=== PATIENT | male | born 1965 | race Caucasian/White ===

== ENCOUNTER 2023-04-28 13:46 | Outpatient (OUT) | payer BC, SELFPAY ==
--- NOTE | 2023-04-28 17:20 | MISC_ITS ---
CONSULTATION DATE: ??04/28/2023 TO:? Sean Garcia D.O. CHIEF COMPLAINT:? Includes upper back pain. HISTORY:? He reports the pain as being 5-7/10 pain, sharp in character, with a deep aching component, increased with activities such as lifting maneuvers, pushing/pulling maneuvers, prolonged standing.? He also reports sleep is uncomfortable.? He feels most comfortable in the semi-recumbent position and application of heat.? Denies any change in bowel and bladder habits or new sensorimotor changes in the lower extremities. EXAM:? Notable for patient having no clinical radiculopathy or myelopathy involving his lower extremities.? Examination of the thoracic area revealed the patient to have severe pain with thoracic facet loading maneuvers that appeared to be more severe on the right side, and appeared to be most severe at T4-5 and T3-4 levels.? This is markedly cephalad from his T7, T8, T9 and T10 rhizotomy using radiofrequency ablation.? He reports the pain seemed to migrate more cephalad approximately 1-2 weeks ago, which was after his last follow up visit on 04/03/2023.? IMPRESSION:? Our impression is patient appears to have chronic pain secondary to thoracic spondylosis, facet loading pain clinically.? It appears to be most severe at the T3-4, T4-5 level with associated myofascial spasm of the thoracic iliocostalis muscle.? RECOMMENDATIONS:? I have asked him to restart his baclofen 10 mg at h.s., obtain a thoracic spine film, PA and lateral views.? We will see the patient back in the office after he undergoes imaging study and has a trial with his anti- spasmodic. As part of providing excellent, safe, comprehensive care, the following was completed at our patient's visit: 1. A medication reconciliation and review to ensure accurate knowledge of current/active medications, including asking our patients to inform us about any usjy-xdz-lkuvoba medications or herbal remedies/nutritional supplements/alternative remedies. 2. A review to specifically ensure our patients have had annual screening for: elevated body mass index (BMI, see intake chart for exact total), tobacco use, screening for depression, and screening for unhealthy alcohol use.? When screening is concerning, patients are provided with education and the specific recommendation to discuss the concerning health issue and treatment options with their primary care provider. ADRI
== END 2023-04-28 13:47 ==
LOC: PM 13:46
PROVIDERS: PCP Internal Medicine; Visit Provider Anesthesiology Pain Medicine
DX: M47.814 Spondylosis without myelopathy or radiculopathy, thoracic region (principal); M62.830 Muscle spasm of back; G89.29 Other chronic pain
CPT/HCPCS: 72070; G0463

== ENCOUNTER 2023-04-28 15:01 | Outpatient (OUT) | payer BC, SELFPAY ==
--- NOTE | 2023-04-28 15:08 | XR_ITS ---
[place] [id number] Patient Name: SUZANNA SUAREZ MRN: [id number] date: 1965 Sex: M Assigned Patient Location: [facility] Current Patient Location: [facility] Accession/Order Number: [id number] Exam Date: 04/28/2023 15:10 Report Date: 04/29/2023 03:32 At the request of: JENNIFER HINKLE Procedure: XR thoracic spine 2V EXAM: XR thoracic spine 2V 04/28/2023 3:10 PM EDT OH001 CLINICAL STATEMENT: Thoracic spondylosis COMPARISON: 08/05/2022 TECHNIQUE: AP and lateral radiographs of the thoracic spine are submitted. FINDINGS: There is normal anatomic alignment. There is no acute fracture or dislocation. The intervertebral disc spaces and vertebral heights are preserved. The pedicles are intact. IMPRESSION: Unremarkable thoracic spine. Electronically authenticated by: KACY GLOVER Date: 04/29/2023 03:32
== END 2023-04-28 15:02 ==
LOC: RAD 15:03
PROVIDERS: PCP Internal Medicine; Visit Provider Anesthesiology Pain Medicine
DX: M47.814 Spondylosis without myelopathy or radiculopathy, thoracic region (principal)
CPT/HCPCS: 72070

== ENCOUNTER 2023-05-19 13:03 | Outpatient (OUT) | payer BC, SELFPAY ==
--- NOTE | 2023-05-20 13:45 | CONS_ITS ---
CONSULTATION DATE: ??05/20/2023 TO:? Sean Garcia D.O. CHIEF COMPLAINT:? Includes right upper back pain. HISTORY:? He reports the pain as being 6-7/10 pain in the above mentioned area, described as a deep aching pain with a sharp component, increased with activities such as lifting maneuvers, pushing/pulling maneuvers, also performing transitioning maneuvers.? He feels most comfortable in the semi-recumbent position.? He denies any change in bowel and bladder habits or new sensorimotor changes in his upper or lower extremities. EXAMINATION:? Notable for patient having persistent pain with thoracic facet loading maneuvers on the right side at T3-4, T-45 with associated myofascial spasm over the thoracic paravertebral muscles on the right side and the iliocostalis.? IMPRESSION:? Our impression is patient with chronic pain secondary to thoracic spondylosis with facet loading pain clinically. RECOMMENDATIONS:? I recommend we proceed with a diagnostic right sided T3-4, T4- 5 facet joint injection under fluoroscopic guidance.? I have asked him to continue using his baclofen as ordered, 10 mg pills, half a pill to one pill b.i.d. as tolerated.? I have gone over the details of the procedure with the patient.? All his questions answered.? He agrees to proceed with the outlined plan. As part of providing excellent, safe, comprehensive care, the following was completed at our patient's visit: 1. A medication reconciliation and review to ensure accurate knowledge of current/active medications, including asking our patients to inform us about any sbki-upb-khggesu medications or herbal remedies/nutritional supplements/alternative remedies. 2. A review to specifically ensure our patients have had annual screening for: elevated body mass index (BMI, see intake chart for exact total), tobacco use, screening for depression, and screening for unhealthy alcohol use.? When screening is concerning, patients are provided with education and the specific recommendation to discuss the concerning health issue and treatment options with their primary care provider. ADRI
== END 2023-05-19 13:04 | disposition home or self-care (01) ==
PROVIDERS: PCP Internal Medicine; Visit Provider Anesthesiology Pain Medicine
DX: M47.814 Spondylosis without myelopathy or radiculopathy, thoracic region (principal); G89.29 Other chronic pain
CPT/HCPCS: G0463

== ENCOUNTER 2023-06-02 06:49 | Day surgery (SDC) | payer BC, SELFPAY ==
[2023-06-02 07:09] VITALS: BP 134/90; PULSE 64; RESP 16; TEMP 36.5; O2SAT 99
[2023-06-02 08:22] VITALS: RESP 20
[2023-06-02 08:24] VITALS: BP 153/96; PULSE 53; O2SAT 96
[2023-06-02] MEDS: BUPIVACAINE HCL 0.25% PF 25 MG/10 ML VIAL 4 ML INJ (08:25)
[2023-06-02 08:27] VITALS: BP 150/98; PULSE 57; O2SAT 98
--- NOTE | 2023-06-02 08:54 | W.PM.PROCNOT ---
Date of procedure: 06/02/23 Pre-op diagnosis: thoracic spondylosis Post-op diagnosis: same Procedure: Right thoracic 3/4 and 4/5 facet injection Under fluoroscopic guidance Solution injected: 2millilitersMarcaine 0.25% Anesthesia :none Immediate complications none Time out process compliant After informed consent obtained from the patient placed in the Prone proposition. Area was prepped and draped in a sterile fashion using betadine. 25 gauge spinal needle inserted over each of the above mentioned target areas. [place] were directed towards the target under fluoroscopic guidance . after encountering each of the targets , no indication of intravascular intraneuronal or intrathecal needle tip placement. Then 0 .5 to 1 Milliliter was injected at each level. [place] removed postoperatively. patient transferred to recovery in stable condition to be discharged home after meeting criteria Anesthesia: Local Surgeon: Fransico Salvador
== END 2023-06-02 08:31 | disposition home or self-care (01) ==
LOC: SURGOUT 06:49
PROVIDERS: PCP Internal Medicine; Visit Provider Anesthesiology Pain Medicine
DX: M47.814 Spondylosis without myelopathy or radiculopathy, thoracic region (principal)
CPT/HCPCS: 64490; 64491

== ENCOUNTER 2023-06-18 07:57 | Outpatient (OUT) | payer BC, SELFPAY ==
--- NOTE | 2023-06-18 08:35 | PM.CN ---
Consult Note: HPI Data of Consult Patient: known to practice within the last 3 years Consult date: 06/18/23 Requesting Physician: SCAR OLIVO NP Primary Care Provider: Sean Garcia DO Consult Narrative Narrative: Patient is here for f/u of right dx MBB to T3/4, T4/5 done on 06/02/23. He had 80% relief of pain with increased fx for several hours after procedure. Pain is in thoracic area R>L worse at night. He would like to proceed with second MBB and ultimately RFA f same area. No new sensorimotor sx or bowel or bladder issues. No adverse medication SE. Medications assist patient with better ability to perform ADLs. cc:: CC: SCAR OLIVO NP Review of Systems ROS Status of ROS 10 or more systems reviewed and unremarkable except as noted in history and below Musculoskeletal Reports: back pain PFSH PFSH Surgical History Meds Home Medications and Allergies Home Medications Medication Instructions Recorded Confirmed Type alprazolam 0.5 mg tablet (Xanax) 0.5 mg PO DAILY 04/28/23 06/02/23 History aspirin 81 mg capsule 81 mg PO DAILY 04/28/23 06/02/23 History baclofen 10 mg tablet 10 mg PO BID 04/28/23 06/02/23 History calcium carbonate 600 mg calcium 600 mg PO BID 04/28/23 06/02/23 History (1,500 mg) tablet (Calcium) cyanocobalamin (vitamin B-12) .ROUTE DAILY 04/28/23 History glucosamine [id number] 1 tab PO DAILY 04/28/23 06/02/23 History roxanna 1,500 mg-400 unit-100 mg tablet (Osteo Bi-Flex (5-Loxin)) multivitamin 1 tab PO DAILY 04/28/23 06/02/23 History omega-3 fatty acids-fish oil 360 1 cap PO DAILY 04/28/23 06/02/23 History mg-1,200 mg capsule (Fish Oil) testosterone cypionate .ROUTE .every 2 weeks 04/28/23 History vitamins-lipotropics tablet 1 tab PO DAILY 04/28/23 06/02/23 History Allergies Allergy/AdvReac Type Severity Reaction Status Date / Time No Known Drug Allergies Allergy Verified 06/06/23 14:10 Exam Constitutional Documenting provider has reviewed patient's vital signs: yes Common normals: no apparent distress, average body habitus, oriented x3, no limitations, healthy appearing, alert and well nourished General appearance: cooperative, comfortable and well developed Orientation/consciousness: Yes awake, Yes oriented to person, Yes oriented to place and Yes oriented to time HENMT Common normals: normocephalic and moist oral mucous membranes Respiratory Common normals: normal respiratory effort, no retractions and no use of accessory muscles Effort & inspection: able to speak in complete sentences and symmetric chest movement Back & Pelvis Thoracic spine/upper back: normal to inspection, ROM limited, pain with ROM, paraspinal muscle tenderness and paraspinal muscle spasm Other: facet loading pain bilat muscle strength 5/5 bilat with intact sensation Assessment and Plan Assessment and Plan (1) Thoracic spondylosis: (2) Muscle spasm: Plan schedule second dx MBB thoracic T3/4, T 4/5 under fluoroscopy with ultimate progression to thermal RFA
== END 2023-06-18 07:58 | disposition home or self-care (01) ==
LOC: PM 07:57
PROVIDERS: PCP Internal Medicine; Visit Provider Nurse Practitioner
DX: M47.814 Spondylosis without myelopathy or radiculopathy, thoracic region (principal); M62.838 Other muscle spasm
CPT/HCPCS: G0463

== ENCOUNTER 2023-07-07 07:50 | Day surgery (SDC) | payer BC, SELFPAY ==
[2023-07-07 07:55] VITALS: BP 125/91; PULSE 65; RESP 18; TEMP 36.6; O2SAT 95
[2023-07-07 08:57] VITALS: BP 139/93; BP 141/94; PULSE 65; PULSE 66; RESP 20; O2SAT 98; O2SAT 99
[2023-07-07] MEDS: BUPIVACAINE HCL 0.25% PF 25 MG/10 ML VIAL 4 ML INJ (08:58)
--- NOTE | 2023-07-07 10:21 | W.PM.PROCNOT ---
Date of procedure: 07/07/23 Pre-op diagnosis: thoracic spondylosis Post-op diagnosis: same as pre-op Procedure: Right thoracic 3/4, 4/5 facet injection Under fluoroscopic guidance Solution injected: 2millilitersMarcaine 0.25% Anesthesia :none Immediate complications none Time out process compliant After informed consent obtained from the patient placed in the Prone proposition . area was prepped and draped in a sterile fashion using betadine. 25 gauge spinal needle inserted over each of the above mentioned target areas . [place] were directed towards the target under fluoroscopic guidance . after encountering each of the targets , no indication of intravascular intraneuronal or intrathecal needle tip placement. Then 0 .5 to 1 Milliliter was injected at each level. [place] removed postoperatively. patient transferred to recovery in stable condition to be discharged home after meeting criteria Anesthesia: Local Surgeon: Fransico Salvador Condition: stable
== END 2023-07-07 09:05 | disposition home or self-care (01) ==
LOC: SURGOUT 07-08 10:18
PROVIDERS: PCP Internal Medicine; Visit Provider Anesthesiology Pain Medicine
DX: M47.814 Spondylosis without myelopathy or radiculopathy, thoracic region (principal)
CPT/HCPCS: 64490; 64491

== ENCOUNTER 2023-07-15 07:44 | Outpatient (OUT) | payer BC, SELFPAY ==
--- NOTE | 2023-07-15 08:03 | PM.CN ---
Consult Note: HPI Data of Consult Patient: known to practice within the last 3 years Requesting Physician: Radha Cordova NP Primary Care Provider: Sean Garcia DO Consult Narrative Reason for consult: F/u from 07/07 Right thoracic 3/4, 4/5 facet block #2 Narrative: Fran Lundy a pleasant 57 year old male presents for evaluation of upper back pain and procedure follow up after right thoracic 3/4 4/5 Facet block #2, patient had 90% pain relief immediately after and for hours following the procedure with improvement in functional ability. Patient would like to proceed with thermal RFA of right thoracic 3/4 4/5 spine. cc:: CC: Radha Cordova NP Review of Systems ROS Status of ROS 10 or more systems reviewed and unremarkable except as noted in history and below Musculoskeletal Reports: back pain, limited range of motion and muscle cramps PFSH PFSH Surgical History Meds Home Medications and Allergies Home Medications Medication Instructions Recorded Confirmed Type alprazolam 0.5 mg tablet (Xanax) 0.5 mg PO DAILY 04/28/23 07/07/23 History aspirin 81 mg capsule 81 mg PO DAILY 04/28/23 07/07/23 History baclofen 10 mg tablet 10 mg PO BID 04/28/23 07/07/23 History calcium carbonate 600 mg calcium 600 mg PO BID 04/28/23 07/07/23 History (1,500 mg) tablet (Calcium) glucosamine [id number]-[id number] 1 tab PO DAILY 04/28/23 07/07/23 History roxanna 1,500 mg-400 unit-100 mg tablet (Osteo Bi-Flex (5-Loxin)) multivitamin 1 tab PO DAILY 04/28/23 07/07/23 History omega-3 fatty acids-fish oil 360 1 cap PO DAILY 04/28/23 07/07/23 History mg-1,200 mg capsule (Fish Oil) testosterone cypionate .ROUTE .every 2 weeks 04/28/23 History vitamins-lipotropics tablet 1 tab PO DAILY 04/28/23 07/07/23 History Allergies Allergy/AdvReac Type Severity Reaction Status Date / Time No Known Drug Allergies Allergy Verified 07/07/23 07:52 Exam Narrative Exam Narrative: Chronic, >3 months predominately axial upper back pain not relieved by NSAIDs, PT, or other conservative measures. WINNIE 32% with severe pain, pain that limits lifting, pain that interferes with sleep and less than 4hrs at a time, pain restricting social life and travel Constitutional Documenting provider has reviewed patient's vital signs: yes Common normals: no apparent distress, average body habitus, oriented x3, healthy appearing, alert and well nourished Exam limitations: physical limitations General appearance: cooperative HENHI Common normals: normocephalic, hearing grossly normal bilaterally and moist oral mucous membranes Head and scalp: normocephalic Eye Common normals: PERRL Pupil: PERRL Neck & C-Spine Common normals: full ROM General: normal visual inspection Cervical spine: cervical ROM normal and normal cervical lordosis Chest Common normals: inspection of chest normal Respiratory Common normals: normal respiratory effort, no retractions and no use of accessory muscles Back & Pelvis Common normals: thoracic and lumbar spine normal to inspection Thoracic spine/upper back: ROM limited, pain with ROM and paraspinal muscle tenderness Lumbar spine/lower back: normal to inspection and lumbar ROM normal Sacroiliac joints: SI joints normal Extremity Common normals: normal to inspection and full ROM Neuro Common normals: oriented x3, CN's II-XII intact bilaterally, moves all extremities, no focal motor deficits, no sensory deficits noted, deep tendon reflexes 2+ bilaterally and gait normal Sensorium/orientation: alert Motor exam: strength 5/5 throughout and no movement abnormalities noted Psych Common normals: mental status grossly normal, thought process normal, cooperative, affect normal, speech normal and activity/motor behavior normal Speech: normal speech Thought process: normal thought process Results Additional Findings Additional findings: I have checked an OARRS report on this patient today and there are no aberrancies noted in the prescribing history.?? A drug screen was completed and reviewed within the last year, and if there has not been a drug screen completed we ordered one today to monitor higher risk, state monitored pain medication use. As part of providing excellent, safe, comprehensive care, the following was completed at our patient's visit: 1. A medication reconciliation and review to ensure accurate knowledge of current/active medications, including asking our patients to inform us about any vcxn-jbb-dmbyiiq medications or herbal remedies/nutritional supplements/alternative remedies. 2. A review to specifically ensure our patients have had annual screening for: elevated body mass index (BMI), tobacco use, screening for depression, and screening for unhealthy alcohol use. When screening is concerning, patients are provided with education and the specific recommendation to discuss the concerning health issue and treatment options with their primary care provider. Assessment and Plan Assessment and Plan (1) Thoracic spondylosis: Assessment and Plan: (2) Muscle spasm: (3) Anxiety: Assessment and Plan: currently on xanx .5mg HS PRN from PCP, with history on anxiety the patient reports he may take his prescription the morning of his RFA Plan Discussed RFA procedure as well as risks vs benefits. Proceed with Right thoracic 3/4, 4/5 thermal radiofrequency ablation without sedation (patient will use at previously prescribed xanax if anxious morning of procedure continue baclofen 10mg HS PRN muscle spasms f/u 1 month after
== END 2023-07-15 07:45 | disposition home or self-care (01) ==
LOC: PM 07:48
PROVIDERS: PCP Internal Medicine; Visit Provider Nurse Practitioner
DX: M47.814 Spondylosis without myelopathy or radiculopathy, thoracic region (principal); M62.838 Other muscle spasm
CPT/HCPCS: G0463

== ENCOUNTER 2023-08-11 12:31 | Day surgery (SDC) | payer BC, SELFPAY ==
[2023-08-11 13:15] VITALS: BP 155/98; PULSE 74; RESP 16; TEMP 36.9; O2SAT 99
[2023-08-11 14:00] VITALS: BP 151/84; PULSE 87; RESP 20; O2SAT 100
[2023-08-11 14:02] VITALS: RESP 20
[2023-08-11] MEDS: LIDOCAINE HCL 2% 400 MG/20 ML MDV 10 ML INJ (14:03)
[2023-08-11] MEDS: BUPIVACAINE HCL 0.25% PF 25 MG/10 ML VIAL 4 ML INJ (14:03)
[2023-08-11] MEDS: METHYLPREDNISOLONE ACETATE 40 MG/ML VIAL INJ (14:04)
[2023-08-11 14:10] VITALS: BP 159/93; PULSE 87; O2SAT 99
--- NOTE | 2023-08-11 14:15 | P.ON_ITS ---
Date of procedure: 08/11/23 Pre-op diagnosis: Thoracic Spondylosis Post-op diagnosis: same as pre-op Procedure: Right Thoracic 3/4, 4/5 Radiofrequency ablation Under fluoroscopic guidance Rhizotomy was created using radio frequency ablation at 80?C for 90 seconds 1 to 2 lesions created at each site. Post lesioning injection of 2 mL each of 0.25% Marcaine and 2% lidocaine with Depo-Medrol 40mg. 0.5 to 1 mL injected at each site Anesthesia local 2% lidocaine for Timeout process compliant After informed consent obtained.Patient brought to the procedure room placed in the prone position skin overlying the area was prepped and draped in a sterile fashion using betadine. 25 gauge needle was used to create a skin wheal over each of the targeted areas utilizing 2% lidocaine. A rhizotomy needle with a 10 mm active tip was inserted over each of the anesthetized areas and directed tow ards each of the medial branches accomplished under fluoroscopic guidance. after encountering the same we had positive sensory stimulation, negative motor stimulation was noted. lesions were then created. Post lesioning, steroid solution was injected needles removed. Patient was transferred to recovery room in stable condition to be discharged home after meeting criteria. Anesthesia: Local Surgeon: Fransico Salvador Condition: stable
== END 2023-08-11 14:20 | disposition home or self-care (01) ==
LOC: SURGOUT 12:33
PROVIDERS: PCP Internal Medicine; Visit Provider Anesthesiology Pain Medicine
DX: M47.814 Spondylosis without myelopathy or radiculopathy, thoracic region (principal)
CPT/HCPCS: 64633; 64634; J1030

== ENCOUNTER 2023-09-03 07:31 | Outpatient (OUT) | payer BC, SELFPAY ==
--- NOTE | 2023-09-03 08:00 | P.CN_ITS ---
Consult Note: HPI Data of Consult Patient: known to practice within the last 3 years Requesting Physician: Radha Cordova NP Primary Care Provider: Sean Garcia DO Consult Narrative Reason for consult: F/u Narrative: Fran Sosa a pleasant 58 year old male presents for evaluation of chronic back pain. Recently had a Right Thoracic 3/4, 4/5 Radiofrequency ablation with 95% pain relief and functional improvement in pain at that site. Patient now has pain in a new area of his back, low thoracic/high lumbar, rating it a 6/10 constant ache, pain is improved with baclofen and aleve. cc:: CC: Radha Cordova NP Review of Systems ROS Status of ROS 10 or more systems reviewed and unremarkable except as noted in history and below Musculoskeletal Reports: back pain PFSH PFSH Surgical History S/P total hip arthroplasty ?Z96.649 - Presence of unspecified artificial hip joint (ICD-10) Meds Home Medications and Allergies Home Medications Medication Instructions Recorded Confirmed Type alprazolam 0.5 mg tablet (Xanax) 0.5 mg PO DAILY 04/28/23 08/11/23 History aspirin 81 mg capsule 81 mg PO DAILY 04/28/23 08/11/23 History baclofen 10 mg tablet 10 mg PO BID 04/28/23 08/11/23 History calcium carbonate 600 mg calcium 600 mg PO BID 04/28/23 08/11/23 History (1,500 mg) tablet (Calcium) glucosamine [id number]-Ruhwljodr 1 tab PO DAILY 04/28/23 08/11/23 History roxanna 1,500 mg-400 unit-100 mg tablet (Osteo Bi-Flex (5-Loxin)) multivitamin 1 tab PO DAILY 04/28/23 08/11/23 History omega-3 fatty acids-fish oil 360 1 cap PO DAILY 04/28/23 08/11/23 History mg-1,200 mg capsule (Fish Oil) testosterone cypionate .ROUTE .every 2 weeks 04/28/23 History vitamins-lipotropics tablet 1 tab PO DAILY 04/28/23 08/11/23 History Allergies Allergy/AdvReac Type Severity Reaction Status Date / Time No Known Drug Allergies Allergy Verified 08/11/23 13:13 Exam Constitutional Documenting provider has reviewed patient's vital signs: yes Common normals: no apparent distress, oriented x3, healthy appearing, alert and well nourished General appearance: cooperative HENMT Common normals: normocephalic, hearing grossly normal bilaterally and moist oral mucous membranes Head and scalp: normocephalic Eye Common normals: PERRL Pupil: PERRL Neck & C-Spine Common normals: full ROM General: normal visual inspection Chest Common normals: inspection of chest normal Respiratory Common normals: normal respiratory effort, no retractions and no use of accessory muscles Back & Pelvis Thoracic spine/upper back: thoracic ROM normal Lumbar spine/lower back: lumbar ROM normal, pain with ROM and paraspinal muscle tenderness Other: positive facet loading right side no radiculopathy Extremity Common normals: normal to inspection and full ROM Neuro Common normals: oriented x3, CN's II-XII intact bilaterally, moves all ex tremities, no focal motor deficits, no sensory deficits noted, deep tendon reflexes 2+ bilaterally and gait normal Sensorium/orientation: alert Motor exam: strength 5/5 throughout and no movement abnormalities noted Psych Common normals: mental status grossly normal, thought process normal, cooperative, affect normal, speech normal and activity/motor behavior normal Speech: normal speech Thought process: normal thought process Results Additional Findings Additional findings: I have checked an OARRS report on this patient today and there are no aberrancies noted in the prescribing history.?? A drug screen was completed and reviewed within the last year, and if there has not been a drug screen completed we ordered one today to monitor higher risk, state monitored pain medication use. As part of providing excellent, safe, comprehensive care, the following was completed at our patient's visit: 1. A medication reconciliation and review to ensure accurate knowledge of current/active medications, including asking our patients to inform us about any wlnk-jrq-xqjvmcs medications or herbal remedies/nutritional supplements/alternative remedies. 2. A review to specifically ensure our patients have had annual screening for: elevated body mass index (BMI), tobacco use, screening for depression, and screening for unhealthy alcohol use. When screening is concerning, patients are provided with education and the specific recommendation to discuss the concerning health issue and treatment options with their primary care provider. Assessment and Plan Assessment and Plan (1) Thoracic spondylosis: (2) Muscle spasm: (3) Lumbar back pain: Plan thoracic RFA providing 95% ongoing pain relief and functional improvement Update lumbar spine xray with bending continue HEP, planning to start working out and stretching more consistently continue baclofen 10mg prn muscle spasms f/u 2 months
== END 2023-09-03 07:32 | disposition home or self-care (01) ==
LOC: PM 07:37
PROVIDERS: PCP Internal Medicine; Visit Provider Nurse Practitioner
DX: M54.50 Low back pain, unspecified (principal); M47.814 Spondylosis without myelopathy or radiculopathy, thoracic region; M62.838 Other muscle spasm
CPT/HCPCS: 72114; G0463

== ENCOUNTER 2023-09-03 08:27 | Outpatient (OUT) | payer BC, SELFPAY ==
--- NOTE | 2023-09-03 | XR_ITS ---
The [address] [address] Patient Name: SUZANNA SUAREZ MRN: [id number] date: 1965 Sex: M Assigned Patient Location: [facility] Current Patient Location: [facility] Accession/Order Number: [id number] Exam Date: 09/03/2023 08:45 Report Date: 09/03/2023 09:53 At the request of: NON-STAFF PHYSICIAN Procedure: XR lumbar spine 6V w bending EXAMINATION: XR lumbar spine 6V w bending HISTORY: low back pain COMPARISON: XR L-spine 06/02/2017 FINDINGS: BONES: Mild degenerative facet arthropathy L4-5, L5-S1. Normal height and alignment of vertebral bodies. DISC SPACES: No significant disc height narrowing, subluxation, or endplate abnormality. PARASPINOUS: Negative. No paraspinous abnormality is seen. OTHER: Negative. XR/XR lumbar spine 6V w bending IMPRESSION: 1. No appreciable acute abnormality or significant degenerative disc disease. 2. Mild degenerative facet arthropathy of lower lumbar spine. Electronically authenticated by: NINA SOLIS Date: 09/03/2023 09:53
== END 2023-09-03 08:28 | disposition home or self-care (01) ==
LOC: RAD 08:30
PROVIDERS: PCP Internal Medicine
DX: M54.50 Low back pain, unspecified (principal)
CPT/HCPCS: 72114

== ENCOUNTER 2023-11-12 07:45 | Outpatient (OUT) | payer BC, SELFPAY ==
--- NOTE | 2023-11-12 08:18 | P.CN_ITS ---
Consult Note: HPI Data of Consult Patient: known to practice within the last 3 years Requesting Physician: Radha Cordova NP Primary Care Provider: Sean Garcia DO Consult Narrative Reason for consult: f/u Narrative: Fran obregon pleasant 58 year old male presents for evaluation and management of back pain. Middle back today 3/10 ache. Patient has completed lumbar spine xrays since last visit. cc:: CC: Radha Cordova NP Review of Systems 2 ROS Status of ROS 10 or more systems reviewed and unremark able except as noted in history and below Musculoskeletal Reports: back pain PFSH PFSH Surgical History S/P total hip arthroplasty ?Z96.649 - Presence of unspecified artificial hip joint (ICD-10) Meds Home Medications and Allergies Home Medications Medication Instructions Recorded Confirmed Type alprazolam 0.5 mg tablet (Xanax) 0.5 mg PO DAILY 04/28/23 08/11/23 History aspirin 81 mg capsule 81 mg PO DAILY 04/28/23 08/11/23 History baclofen 10 mg tablet 10 mg PO BID 04/28/23 08/11/23 History calcium carbonate 600 mg calcium 600 mg PO BID 04/28/23 08/11/23 History (1,500 mg) tablet (Calcium) glucosamine [id number] 1 tab PO DAILY 04/28/23 08/11/23 History roxanna 1,500 mg-400 unit-100 mg tablet (Osteo Bi-Flex (5-Loxin)) multivitamin 1 tab PO DAILY 04/28/23 08/11/23 History omega-3 fatty acids-fish oil 360 1 cap PO DAILY 04/28/23 08/11/23 History mg-1,200 mg capsule (Fish Oil) testosterone cypionate .ROUTE .every 2 weeks 04/28/23 History vitamins-lipotropics tablet 1 tab PO DAILY 04/28/23 08/11/23 History Allergies Allergy/AdvReac Type Severity Reaction Status Date / Time No Known Drug Allergies Allergy Verified 08/11/23 13:13 Exam Constitutional Documenting provider has reviewed patient's vital signs: yes Common normals: no apparent distress, oriented x3, healthy appearing, alert and well nourished General appearance: cooperative HENMT Common normals: normocephalic, hearing grossly normal bilaterally and moist oral mucous membranes Head and scalp: normocephalic Eye Common normals: PERRL Pupil: PERRL Neck & C-Spine Common normals: full ROM General: normal visual inspection Chest Common normals: inspection of chest normal Respiratory Common normals: normal respiratory effort, no retractions and no use of accessory muscles Back & Pelvis Thoracic spine/upper back: thoracic ROM normal Lumbar spine/lower back: lumbar ROM normal and pain with ROM Other: positive facet loading right side no radiculopathy Extremity Common normals: normal to inspection and full ROM Neuro Common normals: oriented x3, CN's II-XII intact bilaterally, moves all extremities, no focal motor deficits, no sensory deficits noted and deep tendon reflexes 2+ bilaterally Sensorium/orientation: alert Motor exam: strength 5/5 throughout and no movement abnormalities noted Psych Common normals: mental status grossly normal, thought process normal, cooperative, affect normal, speech normal and activity/motor behavior normal Speech: normal speech Thought process: normal thought process Results Additional Findings Additional findings: I have checked an [facility] report on this patient today and there are no aberrancies noted in the prescribing history.?? A drug screen was completed and reviewed within the last year, and if there has not been a drug screen completed we ordered one today to monitor higher risk, state monitored pain medication use. As part of providing excellent, safe, comprehensive care, the following was completed at our patient's visit: 1. A medication reconciliation and review to ensure accurate knowledge of current/active medications, including asking our patients to inform us about any [id number] medications or herbal remedies/nutritional supplements/alternative remedies. 2. A review to specifically ensure our patients have had annual screening for: elevated body mass index (BMI), tobacco use, screening for depression, and screening for unhealthy alcohol use. When screening is concerning, patients are provided with education and the specific recommendation to discuss the concerning health issue and treatment options with their primary care provider. Assessment and Plan Assessment and Plan (1) Thoracic spondylosis: (2) Lumbar spondylosis: (3) Muscle spasm: Plan lumbar spine xrays reviewed, consider bilateral L4-5 L5-S1 facet medial branch blocks x2 working towards thermal RFA in the future continue PRN baclofen 5-10mg HS f/u as needed
== END 2023-11-12 07:46 | disposition home or self-care (01) ==
LOC: PM 07:45
PROVIDERS: PCP Internal Medicine; Visit Provider Nurse Practitioner
DX: M47.814 Spondylosis without myelopathy or radiculopathy, thoracic region (principal); M47.816 Spondylosis without myelopathy or radiculopathy, lumbar region; M62.838 Other muscle spasm
CPT/HCPCS: G0463

== ENCOUNTER 2024-03-02 07:23 | Outpatient (OUT) | payer BC, SELFPAY ==
--- OUTSIDE RECORDS SUMMARY | 2024-03-02 07:26 | XMS_ITS | CCD ---
Author Organization [facility] Care Team Providers Care Baby Nurse Name Role Phone AV BUSTAMANTE Attending Unavailable SEAN GARCIA Primary Care Unavailable IGNACIA SCOTT Primary Care Physician Sean Garcia SHAD ., DR AMPARO Valentine Admitting Unavailable KULKARNI ., DR AMPARO Valentine Attending Unavailable JOSE, DR BHAKTA Primary Care Unavailable KULKARNI ., DR AMPARO Valentine Consulting Unavailable MARTELL .LÓPEZ Consulting Unavailable KULKARNI ., DR AMPARO Valentine Admitting Unavailable KULKARNI ., DR AMPARO Valentine Attending Unavailable JOSE, DR BHAKTA Primary Care Unavailable KULKARNI ., DR AMPARO Valentine Consulting Unavailable KULKARNI ., DR AMPARO Valentine Admitting Unavailable KULKARNI ., DR AMPARO Valentine Attending Unavailable JOSE, DR BHAKTA Primary Care Unavailable ZIPACO, DR NINA Barreto Consulting Unavailable KULKARNI ., DR AMPARO Valentine Consulting Unavailable LAKSHMIPATHY ., NARJESSE Admitting [place] vailable LAKSHMIPATHY ., JENNIFER Attending [place] vailable JOSE, DR BHAKTA Primary Care Unavailable LAKSHMIPATHY ., JENNIFER Consulting [place] vailable LAKSHMIPATHY ., JENNIFER Admitting [place] vailable LAKSHMIPATHY ., CHLOEATH Attending [place] vailable DR SEAN GARCIA Primary Care Unavailable LAKSHMIPATHY ., JENNIFER Consulting [place] vailable LAKSHMIPATHY ., NARENDRANATH Admitting [place] vailable HALKER ., SCAR Attending Unavailable JOSE, DR BHAKTA Primary Care Unavailable HALKER ., SCAR Consulting Unavailable KULKARNI ., DR AMPARO Valentine Admitting Unavailable KULKARNI ., DR AMPARO Valentine Attending Unavailable JOSE, DR BHAKTA Primary Care Unavailable KULKARNI ., DR AMPARO Valentine Consulting Unavailable KULKARNI ., DR AMPARO Valentine Admitting Unavailable KULKARNI ., DR AMPARO Valentine Attending Unavailable JOSE, DR BHAKTA Primary Care Unavailable KULKARNI ., DR AMPARO Valentine Consulting Unavailable JAYSHREE .LÓPEZ Consulting Unavailable SHAD ., DR AMPARO Valentine Admitting Unavailable SHAD .DR AMPARO Attending Unavailable DR SEAN GARCIA Primary Care Unavailable SHAD ., DR AMPARO Valentine Consulting Unavailable SEAN GARCIA Referring Unavailable Allergies Allergy Classification Reported Allergen(s) Allergy Type Date of Onset Reaction(s) Facility (1 source) patient allergy list reviewed by nurse or physicia Propensity to adverse reactions Comment:Done [employer] Other Medications Current Medications Medication Drug Class(es) Dates Sig (Normalized) Sig (Original) ALPRAZolam 0.5 mg oral tablet (16 sources) Benzodiazepine Start: 01-26-2024 take 0.5 mg by mouth three times daily Alprazolam Active 0.5 MG PO Three times daily January 26, 2024 6:00pm Start: 07-18-2023 take 1 tablet by jericho th every eight hours as needed for anxiety ALPRAZolam 0.5 MG TAKE ONE TABLET BY MOUTH EVERY 8 HOURS NEEDED FOR ANXIETY for 30 Jun, Active Start: 01-08-2023 take 1 tablet by jericho th every eight hours as needed for anxiety ALPRAZolam 0.5 MG TAKE ONE TABLET BY MOUTH EVERY 8 HOURS NEEDED FOR ANXIETY for 30 Dec, Active Start: 09-11-2017 End: 01-26-2024 take 0.5 mg by mouth once daily at bedtime Alprazolam Discontinued 0.5 MG PO Daily at bedtime September 11, 2017 12:00am January 26, 2024 6:03pm Aspirin (2 sources) Platelet Aggregation Inhibitor, Nonsteroidal Anti-inflammatory Drug Start: 01-14-2022 aspirin Refills(s ) 0 Start Date: 01/14/22 Status: Ordered Start: 09-12-2017 End: 10-12-2017 take 1 tablet by mouth once daily Aspirin (Aspir-) 81 mg tablet,delayed release (DR/EC) Discontinued 81 MG PO Daily September 12, 2017 12:00am October 12, 2017 1:03am baclofen 10 mg oral tablet (8 sources) gamma-Aminobutyric Acid-ergic Agonist Start: 02-25-2024 take 10 mg by mouth three times daily Baclofen Active 10 MG PO Three times daily February 25, 2024 12:00am take 1 tablet by mouth every eig ht hours Baclofen 10 MG 1 tablet as needed Orally Three times a day for 30 days Active Chondroitin Sulfates / Glucosamine (2 sources) Start: 01-14-2022 Osteo Bi-Flex Refill(s) 0 Start Date: 01/14/22 Status: Ordered Start: 09-11-2017 End: 02-25-2024 take 200-250 mg by mouth once daily Glucosamine-Chondroitin (Osteo Bi-Flex) 250-200 mg Tablet Discontinued 200 - 250 MG PO Daily September 11, 2017 12:00am February 25, 2024 10:26am cyclobenzaprine hydrochloride 10 mg oral tablet (11 sources) Muscle Relaxant take 1 tablet by mouth every eight hours Cyclobenzaprine HCl 10 MG 1 tablet Orally Three times a day Active Fish Oils (1 source) Start: 01-14-20 Fish Oil Oral, Refill(s) 0 Start Date: 01/14/22 Status: Ordered hydrocortisone 25 mg/ml topical cream (15 sources) Corticosteroid Start: 02-25-20 Hydrocortisone Active 1 APPLIC TOPICAL Daily February 25, 2024 12:00am Hydrocortisone 2 .5 % 1 application Externally Once a day Active Hydrocortisone 2 .5 % 1 application Externally Once a day Active Multi Vitamin+ (1 source) Start: 01-14-2022 Multi Vitamin+ Refill(s) 0 Start Date: 01/14/22 Status: Ordered sildenafil 100 mg oral tablet (15 sources) Phosphodiesterase 5 Inhibitor Start: 02-25-2024 Sildenafil Active 100 MG PO February 25, 2024 12:00am take 1 tablet by jericho th once daily as needed Sildenafil Citrate 100 MG TAKE 1 TABLET BY MOUTH DAILY NEEDED FOR ERECTILE DYSFUNCTION for 6 Active Testosterone (1 source) Androgen Start: 01-14-2022 testosterone 1 0 mg/0.5 g transdermal gel Topical, qAM, Refills(s) 0 Start Date: 01/14/22 Status: Ordered triamcinolone acetonide 0.001 mg/mg topical ointment (14 sources) Corticosteroid Triamcinolone Ac etonide 0.1 % 1 application Externally Twice a day Active vitamin B12 (1 source) Vitamin B12 Start: 01-14-2022 Vitamin B12 Re fills(s) 0 Start Date: 01/14/22 Status: Ordered Completed/Discontinued Medications Medication Drug Class(es) Dates Sig (Normalized) Sig (Original) azithromycin 250 mg oral tablet (14 sources) Macrolide Antimicrobial Start: 12-15-2022 take 1 tablet by mouth twice daily as needed Azithromycin 250 MG 1 Tablet Orally Twice daily for 6 days Nov, Not-Taking/PRN enalapril maleate 5 mg oral tablet (14 sources) Angiotensin Converting Enzyme Inhibitor take 1 tablet by mouth once daily as needed Enalapril 5 mg one tab orally daily Not-Taking/PRN hydrocortisone 10 mg/ml / neomycin 3.5 mg/ml / polymyxin b [id number] unt/ml otic suspension (14 sources) Aminoglycoside Antibacterial, Polymyxin-class Antibacterial, Corticosteroid Neomycin-Polymyxi n-HC [id number] 4 drops Otic Three times a day for 7 days Not-Taking/PRN lisinopril 5 mg oral tablet (1 source) Angiotensin Converting Enzyme Inhibitor Start: 09-12-2017 End: 10-12-2017 take 5 mg by mouth once daily Lisinopril Discontinued 5 MG PO Daily September 12, 2017 12:00am October 12, 2017 1:03am Vuqmileacsmx-Ctql-Hg lic Acid (Centrum) 18-400 mg-mcg Tablet (1 source) Start: 09-11-2017 End: 02-25-2024 take 1 tablet by mouth once daily Multivitamin-Iron -Folic Acid (Centrum) 18-400 mg-mcg Tablet Discontinued 1 TAB PO Daily September 11, 2017 12:00am February 25, 2024 10:26am [place] 3-Sps-Upo-Fish Oil (Fish Oil) 900-1,400 mg Capsule,Delayed Release(Dr/Ec) (1 source) Start: 09-11-2017 End: 02-25-2024 [place] 1-Udh-Ekh-Fish Oil (Fish Oil) 900-1,400 mg Capsule,Delayed Release(Dr/Ec) Discontinued 900 MG PO Daily September 11, 2017 12:00am February 25, 2024 10:26am oxyCODONE hydrochloride 5 mg oral tablet (14 sources) Opioid Agonist take 1 tablet by mouth every six hours oxyCODONE HCl 5 MG 1 tablet Orally every 6 hrs Not-Taking/PRN predniSONE 20 mg oral tablet (14 sources) Start: 12-15-2022 take 1 tablet by mouth every twenty-four hours predniSONE 20 MG 1 tablet Orally Once a day for 30 day(s) Nov, Not-Taking/PRN simvastatin 40 mg oral tablet (1 source) HMG-CoA Reductase Inhibitor Start: 09-12-2017 End: 10-12-2017 take 40 mg by mouth once daily Simvastatin Discontinued 40 MG PO Daily September 12, 2017 12:00am October 12, 2017 1:03am Vitamins-Lipotropics (Lipo-Flavonoid Plus) 200-100 mg Tablet (1 source) Start: 09-11-2017 End: 02-25-2024 take 100-200 mg by mouth twice daily Vitamins-Lipotrop ics (Lipo-Flavonoid Plus) 200-100 mg Tablet Discontinued 100 - 200 MG PO Twice daily September 11, 2017 12:00am February 25, 2024 10:26am Problems Active Problems Problem Classification Problem Date Documented Date Episodic/Chronic Allergic reactions (4 sources) Allergic contact dermatitis; Translations: [Allergic contact dermatitis due to other agents] 02-25-2024 Episodic Anxiety disorders (19 sources) Generalized anxiety disorder; Translations: [Generalized anxiety disorder] Chronic Cardiac dysrhythmias (1 source) Cardiac arrhythmia; Translations: [Cardiac arrhythmia, unspecified] 09-11-2017 Chronic Diabetes mellitus without complication (1 source) Impaired fasting glycemia; Translations: [Impaired fasting glucose] Episodic Diseases of white blood cells (1 source) Leukopenia; Translations: [Decreased white blood cell count, unspecified] Onset: 05-27-2016 Chronic Disorders of lipid metabolism (2 sources) Familial hypercholesterolemia; Translations: [Familial hypercholesterolemia] 02-25-2024 Chronic Esophageal disorders (1 source) Esophageal disorders; Translations: [Gastro-esophageal reflux disease with esophagitis, without bleeding] Onset: 03-23-2018 Headache; including migraine (6 sources) Migraine with aura; Translations: [Migraine with aura, not intractable, without status migrainosus] Chronic Hemorrhoids (2 sources) Hemorrhoids; Translations: [Unspecified hemorrhoids] Onset: 02-12-2022 Episodic Hyperplasia of prostate (1 source) Benign prostatic hypertrophy without outflow obstruction; Translations: [Hypertrophy (benign) of prostate without urinary obstruction and other lower urinary tract symptoms [LUTS]] Onset: 02-22-2016 Chronic Immunizations and screening for infectious disease (2 sources) Vaccination given; Translations: [Encounter for immunization] Onset: 11-13-2017 Episodic Miscellaneous mental health disorders (1 source) Psychosexual dysfunction associated with inhibited sexual excitement; Translations: [Psychosexual dysfunction with inhibited sexual excitement] Onset: 03-23-2018 Chronic Osteoarthritis (1 source) Localized, primary osteoarthritis of the pelvic region and thigh; Translations: [Bilateral primary osteoarthritis of hip] Chronic Other and unspecified benign neoplasm (2 sources) Polyp of colon; Translations: [Polyp of colon] Onset: 02-12-2022 Episodic Other circulatory disease (2 sources) History of cerebrovascular accident without residual deficits; Translations: [Personal history of transient ischemic attack [TIA], and cerebral infarction without residual deficits] Onset: 09-18-2017 Episodic Other ear and sense organ disorders (15 sources) Impacted cerumen; Translations: [Impacted cerumen, right ear] Onset: 05-28-2018 Episodic Other ear and sense organ disorders (1 source) Impacted cerumen, right ear Episodic Other ear and sense organ disorders (1 source) Bilateral tinnitus; Translations: [Tinnitus, bilateral] Episodic Other male genital disorders (15 sources) Erectile dysfunction co-occurrent and due to arterial insufficiency; Translations: [Erectile dysfunction due to arterial insufficiency] 02-25-2024 Chronic Other male genital disorders (1 source) Erectile dysfunction due to arterial insufficiency Chronic Other male genital disorders (1 source) Male erectile dysfunction, unspecified; Translations: [Erectile dysfunction] 02-25-2024 Chronic Other nervous system disorders (1 source) Other chronic pain; Translations: [OTHER CHRONIC PAIN] Onset: 12-03-2022 Chronic Other nervous system disorders (1 source) Mononeuritis; Translations: [Unspecified mononeuritis of lower limb] Onset: 02-06-2017 Chronic Other nervous system disorders (1 source) Dysarthria and anarthria Episodic Other nervous system disorders (1 source) Numbness of upper limb; Translations: [Anesthesia of skin] 09-11-2017 Episodic Other screening for suspected conditions (not mental disorders or infectious disease) (2 sources) Blood chemistry abnormal; Translations: [Other specified abnormal findings of blood chemistry] Resolved: 10-01-2020 Episodic Residual codes; unclassified (2 sources) Family history of polyp of colon; Translations: [Family history of colonic polyps] Onset: 02-12-2022 Episodic Spondylosis; intervertebral disc disorders; other back problems (20 sources) Lumbar spondylosis; Translations: [Spondylosis without myelopathy or radiculopathy, lumbar region] Onset: 01-02-2016 Chronic Spondylosis; intervertebral disc disorders; other back problems (12 sources) Pain in thoracic spine; Translations: [Dorsalgia, unspecified] Onset: 04-19-2014 Episodic Transient cerebral ischemia (1 source) Cerebral ischemia; Translations: [Transient cerebral ischemic attack, unspecified] 09-11-2017 Chronic Unclassified (1 source) Patient encounter status 01-14-2022 Past or Other Problems Problem Classification Problem Date Documented Date Episodic/Chronic Administrative/social admission (1 source) Family problems; Translations: [Other specified family circumstance] Onset: 05-15-2017 Episodic Bacterial infection; unspecified site (1 source) Bacterial infectious disease; Translations: [Bacterial infection, unspecified, in conditions classified elsewhere and of unspecified site] Onset: 03-18-2019 Episodic Genitourinary symptoms and ill-defined conditions (1 source) Dysuria; Translations: [Dysuria] Onset: 11-13-2017 Episodic Inflammatory conditions of male genital organs (1 source) Acute prostatitis; Translations: [Acute prostatitis] Onset: 03-18-2019 Episodic Other connective tissue disease (1 source) Medial epicondylitis of right humerus; Translations: [Medial epicondylitis, right elbow] Resolved: 07-04-2022 Episodic Other ear and sense organ disorders (2 sources) Tinnitus; Translations: [Unspecified tinnitus] Onset: 09-03-2015 Episodic Other non-traumatic joint disorders (2 sources) Arthralgia of the ankle and/or foot; Translations: [Pain in unspecified ankle and joints of unspecified foot] Onset: 10-03-2014 Episodic Other non-traumatic joint disorders (1 source) Arthralgia of the pelvic region and thigh; Translations: [Pain in joint, pelvic region and thigh] Onset: 11-30-2018 Episodic Other upper respiratory infections (1 source) Acute laryngopharyngitis; Translations: [Acute laryngopharyngitis] Onset: 05-28-2018 Episodic Otitis media and related conditions (3 sources) Acute Eustachian salpingitis, right ear; Translations: [Acute serous otitis media, right ear] Onset: 08-17-2015 Episodic Residual codes; unclassified (1 source) Reduced libido; Translations: [Decreased libido] Onset: 07-19-2019 Episodic Superficial injury; contusion (2 sources) Contusion of left foot; Translations: [Contusion of left foot, subsequent encounter] Onset: 07-16-2016 Episodic Unclassified (2 sources) Nocturnal headaches R51.9 Results Test Name Value Interpretation Reference Range Facility MR BRAIN WO CONTRASTon 01-01 MR BRAIN WO CONTRAST EXAMINATION: MR BRAIN WO CONTRAST CLINICAL HISTORY: Headaches COMPARISONS: None TECHNIQUE: Multiplanar multisequence images of the brain were obtained without contrast. Diffusion perfusion imaging was obtained. BRAIN MRI FINDINGS: There are no extra-axial collections. There is no evidence of hemorrhage. There are no areas of perfusion diffusion signal abnormality to suggest ischemia. The susceptibility images do not demonstrate evidence of hemosiderin deposition within the brain parenchyma or the leptomeninges. There is preservation of the menendez-white matter differentiation. There are no areas of signal abnormality within the brain parenchyma or the posterior fossa to suggest lesion. The sulci and ventricles are within normal limits without evidence of hydrocephalus. The midline structures are intact, the corpus callosum is within normal limits. The region of the pineal gland and the sella turcica are unremarkable. There are no space-occupying lesions in the posterior fossa. The basilar cisterns are patent. The craniocervical junction is unremarkable. The visualized portions of the orbits are within normal limits, the globes are intact. The visualized portions of the paranasal sinuses are within normal limits. The calvarium and soft tissues are unremarkable. IMPRESSION: There are no acute intracranial changes, no evidence of ischemia or hemorrhage. There are no regions of signal abnormality. ELECTRONICALLY SIGNED BY: Urban Mathew MD Normal Not Available XR TSPINE MIN 4 VIEWSon 07-24 XR TSPINE MIN 4 VIEWS EXAMINATION: XR TSPINE MIN 4 VIEWS HISTORY: Pain in thoracic spine COMPARISON: XR thoracic spine 04/24/2020 FINDINGS: BONES: Minimal anterior wedging of approximately T6 vertebral body, similar to prior study: Remote fracture versus developmental. DISC SPACES: Multilevel mild narrowing. PARASPINOUS: Negative. No paraspinous abnormality is seen. OTHER: Negative. IMPRESSION: 1. Multilevel mild degenerative changes. No acute or specific findings to account for patient's symptoms. Electronically authenticated by: NINA SOLIS Date: 2022-08-07 15:39 Normal [facility] Reminderson 04-08-2022 Reminders - From: Justin Larry To: SUZAN - Reminders/Recalls; Sent: 04/08/2022 18:13:16 EDT Show up: 12/24/2026 18:13:00 EST Subject: Ambulatory Reminder - 5 year colon recall Due Date/Time: 01/28/2027 18:13:00 EST Reminder/Recall Repeat colonoscopy in 5 years (2026) due to polyps Normal [facility] [place] Ambulatory Visit Summaryon 0 02-12-2022 Ambulatory Visit Summary FRAN SUAREZ :1965 Visit Date:02/12/2022 Ambulatory Visit Instructions Your Diagnosis Colon polyps Hemorrhoids Family history of polyps in the colon Your Care Team Attending Physician - Esme Lopez CNP Primary Care Physician - IGNACIA SCOTT MD This Is Your Medications List aspirin chondroitin-glucosam ine (Osteo Bi-Flex) cyanocobalamin (Vitamin B12) multivitamin (Multi Vitamin+) omega-3 polyunsaturated fatty acids (Fish Oil) testosterone (testosterone 10 mg/0.5 g transdermal gel) Discharge Vitals Heart Rate (Peripheral) 66 Respiratory Rate 16 Blood Pressure 118/84 Height 176.0 cm Height 176 cm Weight 75.7 kg Weight 75.7 kg BMI 24.44 What to do next You Need to Schedule the Following Appointments Follow Up with Esme Lopez CNP When: Within 1 year, only if needed Where: Medications What How Much When Instructions Unchanged aspirin Unchanged chondroitin-glucosam ine (Osteo Bi-Flex) Unchanged cyanocobalamin (Vitamin B12) Unchanged multivitamin (Multi Vitamin+) Unchanged omega-3 polyunsaturated fatty acids (Fish Oil) Unchanged testosterone (testosterone 10 mg/ 0.5 g transdermal gel) Once a day (in the morning) Medications and Immunizations Administered Not Given influenza virus vaccine, inactivated, Patient Refuses Allergies No Known Medication Allergies Problems Ongoing - Any problem that you are currently receiving treatment for. Colon polyps Family history of polyps in the colon Hemorrhoids Screen for colon cancer Education Materials Colon Polyps Polyps are tissue growths inside the body. Polyps can grow in many places, including the large intestine (colon). A polyp may be a round bump or a mushroom-shaped growth. You could have one polyp or several. Most colon polyps are noncancerous (benign). However, some colon polyps can become cancerous over time. Finding and removing the polyps early can help prevent this. What are the causes? The exact cause of colon polyps is not known. What increases the risk? You are more likely to develop this condition if you: ? Have a family history of colon cancer or colon polyps. ? Are older than 50 or older than 45 if you are . ? Have inflammatory bowel disease, such as ulcerative colitis or Crohn's disease. ? Have certain hereditary conditions, such as: ? Familial adenomatous polyposis. ? Cronin syndrome. ? Turcot syndrome. ? Peutz?Jeghers syndrome. ? Are overweight. ? Smoke cigarettes. ? Do not get enough exercise. ? Drink too much alcohol. ? Eat a diet that is high in fat and red meat and low in fiber. ? Had childhood cancer that was treated with abdominal radiation. What are the signs or symptoms? Most polyps do not cause symptoms. If you have symptoms, they may include: ? Blood coming from your rectum when having a bowel movement. ? Blood in your stool. The stool may look dark red or black. ? Abdominal pain. ? A change in bowel habits, such as constipation or diarrhea. How is this diagnosed? This condition is diagnosed with a colonoscopy. This is a procedure in which a lighted, flexible scope is inserted into the anus and then passed into the colon to examine the area. Polyps are sometimes found when a colonoscopy is done as part of routine cancer screening tests. How is this treated? Treatment for this condition involves removing any polyps that are found. Most polyps can be removed during a colonoscopy. Those polyps will then be tested for cancer. Additional treatment may be needed depending on the results of testing. Follow these instructions at home: Lifestyle ? Maintain a healthy weight, or lose weight if recommended by your health care provider. ? Exercise every day or as told by your health care provider. ? Do not use any products that contain nicotine or tobacco, such as cigarettes and e-cigarettes. If you need help quitting, ask your health care provider. ? If you drink alcohol, limit how much you have: ? 0?1 drink a day for women. ? 0?2 drinks a day for men. ? Be aware of how much alcohol is in your drink. In the [place] one drink equals one 12 oz bottle of beer (355 mL), one 5 oz glass of wine (148 mL), or one 1? oz shot of hard liquor (44 mL). Eating and drinking ? Eat foods that are high in fiber, such as fruits, vegetables, and whole grains. ? Eat foods that are high in calcium and vitamin D, such as milk, cheese, yogurt, eggs, liver, fish, and broccoli. ? Limit foods that are high in fat, such as fried foods and desserts. ? Limit the amount of red meat and processed meat you eat, such as hot dogs, sausage, aponte, and lunch meats. General instructions ? Keep all follow-up visits as told by your health care provider. This is important. ? This includes having regularly scheduled colono (more content not included)... Normal [facility] [place] Gastroenterology Office/Clin ic Noteon 02-12-2022 Gastroenterology Office/Clinic Note Chief Complaint f/u colon HPI Staff This is a 56 year old male who presents today for a follow up Colonoscopy. History of Present Illness Patient is a 56-year-old male who presents for follow-up of colonoscopy completed 01/28/[address] Yu. Colonoscopy completed 01/28/[address] Yu revealed hyperplastic polyp removed from cecum, hyperplastic polyp removed from descending colon, hemorrhoids. Patient with family history of colon polyps?patient's father. Patient due for repeat colonoscopy in 5 years (2026). During today's visit, patient reports he is doing well. Denies having any GI complaints. Review of Systems PHQ Score Initial Depression Screen Score: 0 ROS - Provider Constitutional: no fever, no chills. Skin: no Jaundice. ENMT: Denies dysphagia and heartburn. Respiratory: no shortness of breath. Cardiovascular: no chest pain. Gastrointestinal: no nausea, no vomiting, no diarrhea, no GI bleeding. Physical Exam Vitals & Measurements HR: 66(Peripheral) RR: 16 BP: 118/84 HT: 176.0 cm HT: 176 cm WT: 75.7 kg WT: 75.7 kg BMI: 24.44 General: Well developed, well nourished, in no acute distress Head: Normocephalic/atraum atic Lungs: Normal respiratory effort and clear to auscultation Cardio: Regular rate and rhythm, normal S1 and S2, no murmur, no rub Abdomen: Soft, non-distended, non-tender. Normoactive bowel sounds present in all 4 abdominal quadrants, bilaterally. Mental Status: Alert and oriented x3. Normal mood and affect Assessment/Plan 1. Colon polyps (K63.5: Polyp of colon) Colonoscopy completed 01/28/[address] Yu revealed hyperplastic polyp removed from cecum, hyperplastic polyp removed from descending colon, hemorrhoids. Patient with family history of colon polyps?patient's father. Patient due for repeat colonoscopy in 5 years (2026). Educated regarding use of fiber for hemorrhoids and to potentially assist in reducing risk of future colon polyps. 2. Hemorrhoids (K64.9: Unspecified hemorrhoids) Same as above plan of care. See #1. 3. Family history of polyps in the colon (Z83.71: Family history of colonic polyps) Family history of colon polyps?patient's father. Same as above plan of care. See #1. Orders: Follow-up With When Contact Information Esme Lopez CNP Within 1 year, only if needed Additional Instructions: Patient Education Colon Polyps Problem List/Past Medical History Ongoing Colon polyps Family history of polyps in the colon Hemorrhoids Screen for colon cancer Historical No qualifying data Medications aspirin Fish Oil, Oral Multi Vitamin+ Osteo Bi-Flex testosterone 10 mg/0.5 g transdermal gel, Topical, qAM Vitamin B12 Allergies No Known Medication Allergies Social History Tobacco Never (less than 100 in lifetime) Tobacco Use:. Never Smokeless Tobacco Use:., 02/12/2022 Immunizations Vaccine Date Status Comments influenza virus vaccine, inactivated - Not Given Patient Refuses influenza virus vaccine, inactivated - Not Given Parent Or Guardian Refuses Normal [facility] [place] Comment on above: Result Comment: Elec tronically Signed By: Esme Lopez CNP\.br\Date and Time Signed: 02/12/22 15:22 EDT Patient Educationon 02-13-20 Patient Education Oncology Colon Polyps Polyps are tissue growths inside the body. Polyps can grow in many places, including the large intestine (colon). A polyp may be a round bump or a mushroom-shaped growth. You could have one polyp or several. Most colon polyps are noncancerous (benign). However, some colon polyps can become cancerous over time. Finding and removing the polyps early can help prevent this. What are the causes? The exact cause of colon polyps is not known. What increases the risk? You are more likely to develop this condition if you: ? Have a family history of colon cancer or colon polyps. ? Are older than 50 or older than 45 if you are . ? Have inflammatory bowel disease, such as ulcerative colitis or Crohn's disease. ? Have certain hereditary conditions, such as: ? Familial adenomatous polyposis. ? Cronin syndrome. ? Turcot syndrome. ? Peutz?Jeghers syndrome. ? Are overweight. ? Smoke cigarettes. ? Do not get enough exercise. ? Drink too much alcohol. ? Eat a diet that is high in fat and red meat and low in fiber. ? Had childhood cancer that was treated with abdominal radiation. What are the signs or symptoms? Most polyps do not cause symptoms. If you have symptoms, they may include: ? Blood coming from your rectum when having a bowel movement. ? Blood in your stool. The stool may look dark red or black. ? Abdominal pain. ? A change in bowel habits, such as constipation or diarrhea. How is this diagnosed? This condition is diagnosed with a colonoscopy. This is a procedure in which a lighted, flexible scope is inserted into the anus and then passed into the colon to examine the area. Polyps are sometimes found when a colonoscopy is done as part of routine cancer screening tests. How is this treated? Treatment for this condition involves removing any polyps that are found. Most polyps can be removed during a colonoscopy. Those polyps will then be tested for cancer. Additional treatment may be needed depending on the results of testing. Follow these instructions at home: Lifestyle ? Maintain a healthy weight, or lose weight if recommended by your health care provider. ? Exercise every day or as told by your health care provider. ? Do not use any products that contain nicotine or tobacco, such as cigarettes and e-cigarettes. If you need help quitting, ask your health care provider. ? If you drink alcohol, limit how much you have: ? 0?1 drink a day for women. ? 0?2 drinks a day for men. ? Be aware of how much alcohol is in your drink. In the [place] one drink equals one 12 oz bottle of beer (355 mL), one 5 oz glass of wine (148 mL), or one 1? oz shot of hard liquor (44 mL). Eating and drinking ? Eat foods that are high in fiber, such as fruits, vegetables, and whole grains. ? Eat foods that are high in calcium and vitamin D, such as milk, cheese, yogurt, eggs, liver, fish, and broccoli. ? Limit foods that are high in fat, such as fried foods and desserts. ? Limit the amount of red meat and processed meat you eat, such as hot dogs, sausage, aponte, and lunch meats. General instructions ? Keep all follow-up visits as told by your health care provider. This is important. ? This includes having regularly scheduled colonoscopies. ? Talk to your health care provider about when you need a colonoscopy. Contact a health care provider if: ? You have new or worsening bleeding during a bowel movement. ? You have new or increased blood in your stool. ? You have a change in bowel habits. ? You lose weight for no known reason. Summary ? Polyps are tissue growths inside the body. Polyps can grow in many places, including the colon. ? Most colon polyps are noncancerous (benign), but some can become cancerous over time. ? This condition is diagnosed with a colonoscopy. ? Treatment for this condition involves removing any polyps that are found. Most polyps can be removed during a colonoscopy. This information is not intended to replace advice given to you by your health care provider. Make sure you discuss any questions you have with your health care provider. Document Released: 08/05/2005 Document Revised: 02/24/2019 Document Reviewed: 02/24/2019 [employer] Patient Education ? 2019 [employer]. [facility] Coding Summary.on 02-03-2022 Coding Summary. CD:[id number] Gh0bWw+PGhlYWQ+PE1FV GAfJ11dnRJhhQ9VY0oCY E3ZZYBMULKWWL0VZA7mp FP1WChrL2TfxlZe QtfgfVUgGK70RSb7RTT2 eFlxXZseaT7vyBAvV2v4 CtHwQI08pV10QAupDBBn HcT2QaBqlhintZXk O2ftBvIcyIFwCdi+PHRh YmxlIHdpZHRoPScxMDAl DkIglFmbSU6pHo8nXFTz LWNvbGxhcHNlOiBj q5npAMZfHFesJK2kyQdn R3QrzJT2OLHvb5l7Zq07 dHI+QCIkMGR4mXzhUMyz b896PbAtj6ghWZS9 rGPaIPpkPBG7A09qu5J0 WBJjQIRkYYQ0xCT0nT1n dIlfladdD6SvyMFkIjT4 BHP6vGIjiY8isUah jlkioI6nMzx+C64DPH4C OJWBDH2JGbz4X8HxBqpb dHI+PB05BTKyCV24tOPb mEWda7muoOw1UaFl UFAhHKX9aOnmFGbfk9Pg PDNvE34vsOCcq6K9GLJc iHsztOWtQgIurUG5fI5q YMaqluhzu1kxxzrj Tdjci8xxdn67gV13O42w PHgsIAFnZZJ8YDZpCCIm nLsmxi0qnP3fGb7+IDxj b2ecy0xnvYf1ZjVy LRYbmdUujZzbVUY9h3Pt Rx77A4YzqCtdr8ZbKih7 cb53lMOwr9K7gLB7NYdn TIZthV3hWDbkIzJ2 OZIrFoTedQ75iWHtJEuk Vr5veKquoMjjQY2kGWLm mqqeJZEjrR2kDXGkoPIc sQrmQI6iCLUgrlsj q473WoYhRYX5RTLddZYp Q1GnfB1cPfTwXBRvSUIx E2VjoZZqCEyfQ912UQqj IqG8GEXwvmXhO2Jw XJLzuUlqLfY5k4U8Eg1M w3QyejfkZTY4QJbdQLJv QsB4OzVlAvA3O1NgYob4 NBPnhGdaHG6gP8Pz WZRcmjzyjruspNS2UJFt DUOjsN10gSYvQTdoLs4r i9M1n559ITEmXZJavQ51 Xr9sqEujJFLabZUB gD2xzjtgo2incyyvFbPi SSEqXOq9ZKi9DNCsfGpq EdEwPNT4JrB2MHP0jPJl iG8zzRyebcfraC1b Oyc+J38kvS4iRPQ2RBB2 abyoIUCusnVdRG20LE72 S9GoOmkxtUWliRP+PGRp pdNklHscWL1kXlRg v4csj2EnIXljL9DdRVRd FKpqQuk3HSUrANT4uNH9 zC5fOKUlCStxd5U0sRC7 S6AuhpUxuw0er7sw ASRoEFvmT05ecLPwq0D9 KRYqbJA9RDMcwPdjYvTo jC45Xlz+YYJynQxiq1Bx Jhnap3ojv5lwwQs3 IjMwJSIgdmFsaWduPSJ0 v3EzRn58C59qWYvoXXUl TOVcBGCcBBRspSdamn0r uH1oKk4+PGNvbCB3 iEM5yF6yMZAfVdG1YItv G697IeNdxJBkBquzc8tc n6uthPo8RhYyRGYjdwMm mPpaTRJ2g9WnUn85 K59sPWkcIWIeHQEfVGXf RFRfuPzjpj5upX6sYe6+ GU3sx9qogc64rA21pUF+ MWTpRYP9kMpeQFqt ROIfwO0kPVzlKqA5TNCx CyMimZ51rRTpJZpdFl9y xJrpeYvoPQ4lIHXtanvo c171DbPjm5pdXNJy rXGgTUbiBAI7B80va4Y8 DEHkJOHwZST6gPV7mK5q bGlnbjogbGVmdDsgdmVy tMvaMUaiDAbjS721 IHRvcDsnPlBhdGllbnQg QjIePHj2R7UgLtw1NQDy fAyyZL0dqLJqQUpwMi0u rTpptZfxUM7aXMWp pvmmz436KuEwm2ueKYQz oSYxGVdqCBE8M88eo5A9 SYObYBXiISG8gMX5zA1p bGlnbjogbGVmdDsg fgWqsHvzRUroKFjiB356 IHRvcDsnPkJpcnRoIERh eOA7XC30WA40mTOsr3X7 qCG3A8OwOHCyvhqm vapvpGW6QNLmUCVzhE41 Uk7lzGmuPi6pVNDzEHR9 DWYsmATvW4SxdY6qKsMl KLNgPRIiG0QobMTm OTnvP488JWicVeL3TVKm oqXgD6XxIOKijXmpPaY0 l0V3Gg9SP8N2ZE48VE31 fHEwr5L1hPJ0V8Fk XZBuxczrsgnsaHK8YFCr SUZvuH61Wf8dyQpbSn5j BWPdXFQ5ZWIwoOFwB0Wf qZ8kPfEqKIRdZJSm Z3CeqLUzXAjrO050RAtx JmH2YXIcyyTqU9KgJJBq gGvkZrK4f9K6Wd5UNWv8 IN91AZ54kREhd9G0 eIW8E4PjSNVpgamgotbb nHU9XDPrIAOzgM07Ia5z jGmpMg0hHLKzIPB3FVWl xBFcB0ZozS2lIzBt HJWyGGUeS7BnfALwNIbj V692FFkdXaN9GRHcepDt X4DbHXSjdAmeLmV1x8O0 Xe8QEJHcKL48KFF6 gRK5PM80WW86F7TvBjtc dGFibGU+PHRhYmxlIHdp ZHRoPScxMDAlJyBzdHls OH4yQg9oAXOfHFXg pKeotUAbDcXvm4nsTNSx ANvuZF4rtYpmU6RwbNX0 SYYbl6y3Ff08Y76qX2Tv dXA+BOWhzPV9sZZ6 gJ0xZjGlYwN5MQbwQ385 JqEqgOFfIhsfs4kcj5ak lYr4OlL8YNPtobJslRoy BFN0k5GbQx49Q22c IHdpZHRoPSIxNSUiIHZh xDricg5ysE8eTx7+PGNv vPK2zPZ6fW7mJzZjPaG1 DNupI900ArCblVWh Fdfyz1qjm7jlbVw5VbZo PAZxafVynQdvDLR2c9Ye Cc77V9KgsOiim1UjTzt4 tf55aOKou5G2nHO2 O6MhUDFfzqvizNAnlTwa UZ6qFXRyepqqGYIlfC2g ZGLdX7s4PoHsQnE7HQtu Z2RjuvP8LROmlDQw EBstOFW4B63or6F9NTIc SBEbCKC5uLP7kY3xzAit bjogbGVmdDsgdmVydGlj MAmfETycF767QASd uTacFHNwuE9jBYJpfJRe lRuxLZ7bMDXhwjpxYq1T EL7zPAVOU2JZPX76JQ22 vIEhe5V3tWV2C8Bo HNUspowqachndII2NCPc QEPpdI45pTGgAGcwOv3q v9N9d555BIVwSCExrF57 Qt6fiGwuMOWeuJCX tX4wczrgy8odlkpzKaOx DKQwYVy3URc7CTJagIzh GfRwOGG9YcB1GAO8eXGe rH9oqFyqdvwfvD4d Oyc+VTgkTAuoWBg2DFbz dGQ+ADSsUHE1tSdmNHuw FLMdgJ2jPOFyG7v4KgLx IrK2DGdjT1FiIUGy xzqzBa14aK3mMkLcAvQ0 UAfuR3GvqgY8CIVdiUCy XNemGGS0Z36ql9H7QPEa DKFaEEP4sWY8iB6b bGlnbjogbGVmdDsgdmVy jMdcUOulKRaeV676QSDm dZztWpM7MCrxQFVnJO33 LY24gTZat2Y8iBA3 W5YsDFCkjrvqjsavhCN0 WSCdPKOjwB32rNJzMBvw Ga0cm5K7z391GLRhZIDw tR62Fr1ymXpaPUZu rMSWkS2nufvcz1yyrbcw HqUmJSQcQEf4DAt3KQAp nFcvQuSdVAY4XsG9WRT8 cMFpqQ9slIxejfdr tV8nVni+TWFsZTwvdGQ+ OTEpWWQ8kRhqPHjcHKHg yE7kWKRrT0s8BlLuEpC8 LBzxH5JmVTApymcg Le86bE0yMoOdOwE5MSho P0PovqT8FRYjhEItJZkp VAL8B51by9R5KTZoPJKg FGM9aWS3yL8ehBhn bjogbGVmdDsgdmVydGlj AOxzFPfuW865CPPraEoq OqcgLpAGqq9bED7rFalh dGQ+JK38qg09N3Ni ZgsgKlt2CBXdRGK7aJV6 gV5wCWYrCXsjn6M0cZO8 D1HkglMjcf6fx3uvQJDl VCcnM91tmGXjx9O6 PARciTO3QPBeeLcnFfBp eU68Lxe+POBjzFzmb8Bn Lccfp2uac7xjeSu8HfGa JSIgdmFsaWduPSJ0 m2EzNh93G69pPCubSUNy RXAgMLZrUQVujBevvi7j xO9mZx7+CGBxlTY8yKB1 vO3mOfKcWwK6WEzz V171VrQzqAOuLwpad8uh k6tzrIh6NzVtMEOoaqVs tEznEJB3p9JvQv86O5Sk tEkvq4ZnExq3pr37 oLRjr7E2pPH1Y9ZvDMOb lvfoyVCuuLsiZD5vFUHc ceywCHZjtD8gIIFoP8f8 PiWpOsR0APsfD8Yx ewQ2MCHjfYIeCQMniRIE cU9cdhgxd3ssakkyOjIt PKQtVOe3XOx6AMWldPku LdSqMVQ4LnS3TQM0 dKBspS1nzPtmcbtcoM0b Oyc+CSs3l1diqNOsRS8b wDB5WT93AW29dUCei6V0 zSJ5M8DdFTEjeepe sgmphEW0AMTtKXNjtH59 Gu5cvHgeFx0fQAAiCXE2 WWUbdJDhN9VnfZ4mAtGi LNRvUORvU5NneCZh UMjuE111TNvyWmR8FSGn ktNhT9NgQNMsfCjcZhW8 z1R1Yz8AGA40BW51NA41 lJAth6G8gNV6U6Wp HUVptvztidoslOL2KUTy LHBykS24Qk8sgAkeJx3t EJMeTAX1ONIucHFgE5Eu zW5xKrNmHHGuISGt S5XfaPBgGQocV274WFor NwX6FZAaiyCdB1OmBLKi gGgaXvC4c9V7Lm1CKp88 BO78KT57rTKps0N5 mTE7W9GtKAHtwvtfmkqq xPF3ZVGiJIAtvB95Yy2z yHowYs4xKQUsUZT3YDAp fDXjU9SbgK6cHfAv ULCnXQOyS5XreLQbEUph Q583OVzdXuP3ISRrkiGo L1QoHWZmvOzkEzZ7l2F3 Ob5GTGhtzwf0F7Gv PjwvdHI+WP51OWSoGX90 bWJooGNyp0llkWs0QeEh XXWpAOR0oYciWZorp5Us CYPgD68asIFpp5B6 IGNv (more content not included)... Normal [facility] Outside Colonoscopyon 2021 Outside Colonoscopy [id number] #[id number]:127 Normal [facility] Physician Orderon 01-28-2022 Physician Order [id number]#1.00CD:127 Normal [facility] Consent for Procedure/Surger yon 01-15-2022 Consent for Procedure/Surgery [id number] 2#1.00CD:127 Normal [facility] Ambulatory Visit Summaryon 0 01-14-2022 Ambulatory Visit Summary FRAN SUAREZ :1965 Visit Date:01/14/2022 Ambulatory Visit Instructions Your Diagnosis Screen for colon cancer Family history of polyps in the colon Your Care Team Attending Physician - Esme Lopez CNP Primary Care Physician - IGNACIA SCOTT MD Referring Physician - IGNACIA SCOTT MD This Is Your Medications List polyethylene glycol 3350 with electrolytes (polyethylene glycol 3350 with electrolytes Oral Pwdr for Diana 4000 mL (NuLytely)) Contact prescribing physician if questions or concerns aspirin chondroitin-glucosam ine (Osteo Bi-Flex) cyanocobalamin (Vitamin B12) multivitamin (Multi Vitamin+) omega-3 polyunsaturated fatty acids (Fish Oil) testosterone (testosterone 10 mg/0.5 g transdermal gel) Discharge Vitals Temperature (Temporal Artery) 35.8 ?C Heart Rate (Peripheral) 81 Respiratory Rate 16 Blood Pressure 132/88 Height 176 cm Height 176.0 cm Weight 75.3 kg Weight 75.3 kg BMI 24.31 What to do next You Need to Schedule the Following Appointments Follow Up with Esme Lopez CNP When: Within 2 to 4 weeks Where: Medications What How Much When Instructions New polyethylene glycol 3350 with electrolytes (polyethylene glycol 3350 with electrolytes Oral Pwdr for Diana 4000 mL (NuLytely)) See instructions PER PHYSICIAN INSTRUCTIONS. PRIOR TO COLONOSCOPY. Pickup at [facility] Unchanged aspirin Contact prescribing physician if questions or concerns Unchanged chondroitin-glucosam ine (Osteo Bi-Flex) Contact prescribing physician if questions or concerns Unchanged cyanocobalamin (Vitamin B12) Contact prescribing physician if questions or concerns Unchanged multivitamin (Multi Vitamin+) Contact prescribing physician if questions or concerns Unchanged omega-3 polyunsaturated fatty acids (Fish Oil) By Mouth Contact prescribing physician if questions or concerns Unchanged testosterone (testosterone 10 mg/ 0.5 g transdermal gel) Topical Once a day (in the morning) Contact prescribing physician if questions or concerns Pharmacy Information [facility]: [address] [place], [place] [id number] [phone] Medications and Immunizations Administered Not Given influenza virus vaccine, inactivated, Parent Or Guardian Refuses Allergies No Known Medication Allergies Problems Ongoing - Any problem that you are currently receiving treatment for. Family history of polyps in the colon Screen for colon cancer Education Materials Colonoscopy, Adult A colonoscopy is an exam to look at the entire large intestine. During the exam, a lubricated, flexible tube that has a camera on the end of it is inserted into the anus and then passed into the rectum, colon, and other parts of the large intestine. You may have a colonoscopy as a part of normal colorectal screening or if you have certain symptoms, such as: ? Lack of red blood cells (anemia). ? Diarrhea that does not go away. ? Abdominal pain. ? Blood in your stool (feces). A colonoscopy can help screen for and diagnose medical problems, including: ? Tumors. ? Polyps. ? Inflammation. ? Areas of bleeding. Tell a health care provider about: ? Any allergies you have. ? All medicines you are taking, including vitamins, herbs, eye drops, creams, and wedo-ztd-gbyvihk medicines. ? Any problems you or family members have had with anesthetic medicines. ? Any blood disorders you have. ? Any surgeries you have had. ? Any medical conditions you have. ? Any problems you have had passing stool. What are the risks? Generally, this is a safe procedure. However, problems may occur, including: ? Bleeding. ? A tear in the intestine. ? A reaction to medicines given during the exam. ? Infection (rare). What happens before the procedure? Eating and drinking restrictions Follow instructions from your health care provider about eating and drinking, which may include: ? A few days before the procedure ? follow a low-fiber diet. Avoid nuts, seeds, dried fruit, raw fruits, and vegetables. ? 1?3 days before the procedure ? follow a clear liquid diet. Drink only clear liquids, such as clear broth or bouillon, black coffee or tea, clear juice, clear soft drinks or sports drinks, gelatin dessert, and popsicles. Avoid any liquids that contain red or purple dye. ? On the day of the procedure ? do not eat or drink anything starting 2 hours before the procedure, or within the time period that your health care provider recommends. Up to 2 hours before the procedure, you may continue to drink clear liquids, such as water or clear fruit juice. Bowel prep If you were prescribed an oral bowel prep to clean out your colon: ? Take it as told by your health care provider. Starting the day before your procedure, you will need to drink a large amount of medicated liquid. The liquid will cause you to have multiple loose stools (more content not included)... Normal [facility] Gastroenterology Office/Clin ic Noteon 01-14-2022 Gastroenterology Office/Clinic Note Chief Complaint ref by Sonia- screening HPI Staff This is a 56 year old male who presents today for a referral by Sonia for screening. History of Present Illness Patient is a 56-year-old male who presents for referral from his PCP Dr. Scott for colonoscopy. Review of outside records from patient's PCP indicates patient with history of vitamin B12 deficiency, anxiety, low testosterone and was referred for screening colonoscopy. Family history of colon cancer: Denies. Family history of colon polyps: Patient's father. Personal history of colon cancer: Denies. Personal history of colon polyps: Denies. Takes aspirin daily. During today's visit, patient reports he is doing well. Denies having any GI complaints. Has never had colonoscopy before. Denies having any cardiac or respiratory problems. Review of Systems PHQ Score Initial Depression Screen Score: 0 ROS - Provider Constitutional: no fever, no chills. Skin: no Jaundice. ENMT: Denies dysphagia and heartburn. Respiratory: no shortness of breath. Cardiovascular: no chest pain. Gastrointestinal: no nausea, no vomiting, no diarrhea, no GI bleeding. Physical Exam Vitals & Measurements T: 35.8 ?C(Temporal Artery) HR: 81(Peripheral) RR: 16 BP: 132/88 HT: 176 cm HT: 176.0 cm WT: 75.3 kg WT: 75.3 kg BMI: 24.31 General: Well developed, well nourished, in no acute distress Head: Normocephalic/atraum atic Lungs: Normal respiratory effort and clear to auscultation Cardio: Regular rate and rhythm, normal S1 and S2, no murmur, no rub Abdomen: Soft, non-distended, non-tender. Normoactive bowel sounds present in all 4 abdominal quadrants, bilaterally. Mental Status: Alert and oriented x3. Normal mood and affect Assessment/Plan 1. Screen for colon cancer (Z12.11: Encounter for screening for malignant neoplasm of colon) No previous colonoscopy. Patient with family history of colon polyps?patient's father. Ordered colonoscopy. Educated patient regarding risks of Colonoscopy including, bleeding, perforation. Anesthesia to review potential risks of anesthesia with patient. Verbalizes understanding and wishes to proceed with colonoscopy. Ordered: Colonoscopy (Hospital Procedure) E&M of New Patient Low 30-44 Min 05167 2. Family history of polyps in the colon (Z83.71: Family history of colonic polyps) Same as above plan of care. See #1. Ordered: Colonoscopy (Hospital Procedure) E&M of New Patient Low 30-44 Min 29061 Orders: polyethylene glycol 3350 with electrolytes, See Instructions, 1 EA, Refill(s) 0, PER PHYSICIAN INSTRUCTIONS. PRIOR TO COLONOSCOPY., [facility], 176, cm, 01/14/22 15:06:00 EST, Height/Length Dosing, 75.3, kg, 01/14/22 15:06:00 EST, Weight Dosing Follow-up With When Contact Information Esme Lopez CNP Within 2 to 4 weeks Additional Instructions: Patient Education Colonoscopy, Adult Problem List/Past Medical History Ongoing Family history of polyps in the colon Screen for colon cancer Historical No qualifying data Medications aspirin Fish Oil, Oral Multi Vitamin+ Osteo Bi-Flex polyethylene glycol 3350 with electrolytes Oral Pwdr for Diana 4000 mL (NuLytely), See Instructions testosterone 10 mg/0.5 g transdermal gel, Topical, qAM Vitamin B12 Allergies No Known Medication Allergies Social History Tobacco Never (less than 100 in lifetime) Tobacco Use:. Never Smokeless Tobacco Use:., 01/14/2022 Immunizations Vaccine Date Status Comments influenza virus vaccine, inactivated - Not Given Parent Or Guardian Refuses Normal [facility] Comment on above: Result Comment: Elec tronically Signed By: Esme Lopez CNP\.br\Date and Time Signed: 01/14/22 15:20 EST Patient Educationon 01-14-20 Patient Education Radiology Colonoscopy, Adult A colonoscopy is an exam to look at the entire large intestine. During the exam, a lubricated, flexible tube that has a camera on the end of it is inserted into the anus and then passed into the rectum, colon, and other parts of the large intestine. You may have a colonoscopy as a part of normal colorectal screening or if you have certain symptoms, such as: ? Lack of red blood cells (anemia). ? Diarrhea that does not go away. ? Abdominal pain. ? Blood in your stool (feces). A colonoscopy can help screen for and diagnose medical problems, including: ? Tumors. ? Polyps. ? Inflammation. ? Areas of bleeding. Tell a health care provider about: ? Any allergies you have. ? All medicines you are taking, including vitamins, herbs, eye drops, creams, and ocdf-jwc-ouoaemy medicines. ? Any problems you or family members have had with anesthetic medicines. ? Any blood disorders you have. ? Any surgeries you have had. ? Any medical conditions you have. ? Any problems you have had passing stool. What are the risks? Generally, this is a safe procedure. However, problems may occur, including: ? Bleeding. ? A tear in the intestine. ? A reaction to medicines given during the exam. ? Infection (rare). What happens before the procedure? Eating and drinking restrictions Follow instructions from your health care provider about eating and drinking, which may include: ? A few days before the procedure ? follow a low-fiber diet. Avoid nuts, seeds, dried fruit, raw fruits, and vegetables. ? 1?3 days before the procedure ? follow a clear liquid diet. Drink only clear liquids, such as clear broth or bouillon, black coffee or tea, clear juice, clear soft drinks or sports drinks, gelatin dessert, and popsicles. Avoid any liquids that contain red or purple dye. ? On the day of the procedure ? do not eat or drink anything starting 2 hours before the procedure, or within the time period that your health care provider recommends. Up to 2 hours before the procedure, you may continue to drink clear liquids, such as water or clear fruit juice. Bowel prep If you were prescribed an oral bowel prep to clean out your colon: ? Take it as told by your health care provider. Starting the day before your procedure, you will need to drink a large amount of medicated liquid. The liquid will cause you to have multiple loose stools until your stool is almost clear or light green. ? If your skin or anus gets irritated from diarrhea, you may use these to relieve the irritation: ? Medicated wipes, such as adult wet wipes with aloe and vitamin E. ? A skin-soothing product like petroleum jelly. ? If you vomit while drinking the bowel prep, take a break for up to 60 minutes and then begin the bowel prep again. If vomiting continues and you cannot take the bowel prep without vomiting, call your health care provider. ? To clean out your colon, you may also be given: ? Laxative medicines. ? Instructions about how to use an enema. General instructions ? Ask your health care provider about: ? Changing or stopping your regular medicines or supplements. This is especially important if you are taking iron supplements, diabetes medicines, or blood thinners. ? Taking medicines such as aspirin and ibuprofen. These medicines can thin your blood. Do not take these medicines before the procedure if your health care provider tells you not to. ? Plan to have someone take you home from the hospital or clinic. What happens during the procedure? ? An IV may be inserted into one of your veins. ? You will be given medicine to help you relax (sedative). ? To reduce your risk of infection: ? Your health care team will wash or sanitize their hands. ? Your anal area will be washed with soap. ? You will be asked to lie on your side with your knees bent. ? Your health care provider will lubricate a long, thin, flexible tube. The tube will have a camera and a light on the end. ? The tube will be inserted into your anus. ? The tube will be gently eased through your rectum and colon. ? Air will be delivered into your colon to keep it open. You may feel some pressure or cramping. ? The camera will be used to take images during the procedure. ? A small tissue sample may be removed to be examined under a microscope (biopsy). ? If small polyps are found, your health care provider may remove them and have them checked for cancer cells. ? When the exam is done, the tube will be removed. The procedure may vary among health care providers and hospitals. What happens after the procedure? ? Your blood pressure, heart rate, breathing rate, and blood oxygen level will be monitored until the medicines you were given have worn off. ? Do not drive for 24 hours after the exam. ? You may have a small amount of blood in your stool. ? You may pass gas and have mild abdominal cramping or bloating due to the air t (more content not included)... Normal [facility] Pre-Authorization for Medica l Treatmenton 01-14-2022 Pre-Authorization for Medical Treatment [id number]# 1.00CD:127 Normal [facility] Physician Referralon 022 Physician Referral [id number] #1.00CD:127 Normal [facility] Glycohemoglobin (HGB A1C) Román boothe 01-26-2019 Hemoglobin A1c/Hemoglobin.total mass fraction (Bld) 5.3 % Normal [facility] Comment on above: Result Comment: Refe rence range: < 5.6 Unit: % HGB (NOTE) Updated ADA Reference Range HbA1c values of 5.7-6.4 percent indicate an increased risk for developing diabetes mellitus. HbA1c values greater than or equal to 6.5 percent are diagnostic of diabetes mellitus. For diagnosis of diabetes in individuals without unequivocal hyperglycemia, results should be confirmed by repeat testing. Basic Metabolic Panelon Calcium mass conc 8.7 mg/dL Normal 8.5-10.6 [facility] Chloride molar conc 107 mmol/L Normal 98-107 [facility] CO2 molar conc 28 mmol/L Normal 21-32 [facility] Creatinine mass conc 0.97 mg/dL Normal 0.70-1.30 [facility] Glucose mass conc 129 mg/dL High 74-106 [facility] Potassium molar conc 4.1 mmol/L Normal 3.5-5.1 [facility] Sodium molar conc 144 mmol/L Normal 136-145 [facility] Urea nitrogen mass conc (BldV) 13 mg/dL Normal 7-18 [facility] Urea nitrogen/Creatinine mass ratio 13 mg/mg Normal [facility] CBC with Differentialon Basophils #/vol (Bld) 0.0 thou/mcL Normal 0.0-0.[address] [facility] Basophils/100 WBC (Bld) 0.4 % Normal 0-3 [facility] Differential cell count method Nom (Bld) AUTOMATED DIFFERENTIAL Normal [facility] Eosinophils #/vol (Bld) 0.1 thou/mcL Normal 0.0-0.4 [facility] Eosinophils/100 WBC (Bld) 2.1 % Normal 0-7 [facility] Erythrocyte distribution width Entitic volume (RBC) 13.9 % Normal 11.7-15.0 [facility] Hematocrit Volume Fraction (Bld) 41.3 % Normal 34.0-50.0 [facility] Hemoglobin mass conc (Bld) 13.5 g/dL Normal 11.5-17.0 [facility] Lymphocytes #/vol (Bld) 1.2 thou/mcL Normal 0.7-4.5 [facility] Lymphocytes/100 WBC (Bld) 25.2 % Normal 14-46 [facility] MCH Entitic mass (RBC) 28.5 Picograms Normal 27.0-34.0 [facility] MCHC mass conc (RBC) 32.8 g/dL Normal 32.0-36.0 [facility] MCV Entitic volume (RBC) 87.0 fL Normal 80-98 [facility] Monocytes #/vol (Bld) 0.2 thou/mcL Normal 0.1-1.[address] [facility] Monocytes/100 WBC (Bld) 5.2 % Normal 4-13 [facility] Neutrophils #/vol (Bld) 3.2 thou/mcL Normal 1.5-7.8 [facility] Neutrophils/100 WBC (Bld) 67.1 % Normal 40-74 [facility] Platelet mean volume Entitic volume (Bld) 9.1 fL Normal 7.5-11.2 [facility] Platelets #/vol (Bld) 253 thou/mcL Normal 140-[address] [facility] RBC #/vol (Bld) 4.74 x(10)6/mcL Normal 3.80-5.60 [facility] WBC #/vol (Bld) 4.8 thou/mcL Normal 4.0-10.5 [facility] Partial Thromboplastin Time (aPTT)on 01-25-2019 aPTT Coag time (PPP) 33 Sec Normal 24.4-37.5 [facility] Prothrombin Timeon INR Coag RelTime (Bld) 1.0 {INR} Normal 0.8-1.2 [facility] Comment on above: Result Comment: CATARINA MORIN THE INDUCTION PHASE OF ORAL ANTICOAGULATION, THE INR MAY NOT REFLECT THE ANTICOAGULANT STATUS OF THE PATIENT. THERAPEUTIC RANGES FOR INR'S ARE: MOST CLINICAL SITUATIONS: INR 2.0-3.0 MECHANICAL PROSTHETIC VALVES: INR 2.5-3.5 CRITICAL: INR 5.0 Prothrombin time (PT) Coag time (PPP) 10.9 Sec Normal 9.4-12.5 [facility] Vital Signs Date Time Vital Sign Value Performing Clinician Facility 02-26-2024 10:26-0400 Body height 175.26 cm [facility] 02-26-2024 10:26-0400 Body mass index (BMI) [Ratio] 24.2 kg/m2 [facility] 02-26-2024 10:26-0400 Body weight 74.44 kg [facility] 02-26-2024 10:26-0400 Diastolic blood pressure 93 mm[Hg] [facility] 02-26-2024 10:26-0400 Heart rate 73 /min [facility] 02-26-2024 10:26-0400 Respiratory rate 12 /min [facility] 02-26-2024 10:26-0400 Systolic blood pressure 143 mm[Hg] [facility] 12-22-2023 10:45-0500 Body height 175.26 cm [employer] Other [facility] 12-22-2023 10:45-0500 Body mass index (BMI) [Ratio] 24.51 kg/m2 [employer] Other [email or web address] [facility] [employer] Other 12-22-2023 10:45-0500 Body weight 75.3 kg Sean Ball Other [email or web address] [facility] [employer] Other 12-22-2023 10:45-0500 Body weight 75.29 kg [facility] 12-22-2023 10:45-0500 Diastolic blood pressure 80 mm[Hg] Sean Ball Other [facility] 12-22-2023 10:45-0500 Respiratory rate 12 /min Sean Ball Other [facility] [employer] Other 12-22-2023 10:45-0500 Systolic blood pressure 130 mm[Hg] Sean Ball Other [facility] 08-31-2023 09:30-0400 Body height 175.26 cm Sean Ball Other [facility] [employer] Other 08-31-2023 09:30-0400 Body mass index (BMI) [Ratio] 22.21 kg/m2 Sean Ball Other [facility] [employer] Other 08-31-2023 09:30-0400 Body weight 68.22 kg Sean Ball Other [facility] [employer] Other 08-31-2023 09:30-0400 Diastolic blood pressure 79 mm[Hg] Sean Ball Other [facility] [employer] Other 08-31-2023 09:30-0400 Respiratory rate 12 /min Sean Ball Other [employer] Other 08-31-2023 09:30-0400 Systolic blood pressure 120 mm[Hg] Sean Ball Other [employer] Other 12-15-2022 15:45-0500 Body height 175.26 cm Sean Ball Other [employer] Other 12-15-2022 15:45-0500 Body mass index (BMI) [Ratio] 25.25 kg/m2 Sean Ball Other [employer] Other 12-15-2022 15:45-0500 Body weight 77.57 kg Sean Ball Other [employer] Other 12-15-2022 15:45-0500 Diastolic blood pressure 76 mm[Hg] Sean Ball Other [employer] Other 12-15-2022 15:45-0500 Respiratory rate 12 /min Sean Ball Other [employer] Other 12-15-2022 15:45-0500 Systolic blood pressure 122 mm[Hg] Sean Ball Other [employer] Other 11-28-2022 15:45-0500 Body height 175.26 cm Sean Ball Other [employer] Other 11-28-2022 15:45-0500 Body mass index (BMI) [Ratio] 24.98 kg/m2 Sean Ball Other [employer] Other 11-28-2022 15:45-0500 Body weight 76.75 kg Sean Ball Other [employer] Other 11-28-2022 15:45-0500 Diastolic blood pressure 78 mm[Hg] Sean Ball Other [employer] Other 11-28-2022 15:45-0500 Respiratory rate 12 /min Sean Ball Other [employer] Other 11-28-2022 15:45-0500 Systolic blood pressure 122 mm[Hg] Sean Ball Other [employer] Other 02-12-2022 14:50-0400 Blood Pressure Location Esme Lopez [facility] 02-12-2022 14:50-0400 Diastolic blood pressure 84 mm[Hg] Esme Lopez [facility] 02-12-2022 14:50-0400 Heart rate 66 /min Esme Lopez [facility] 02-12-2022 14:50-0400 Respiratory rate 16 /min Esme oLpez [facility] 02-12-2022 14:50-0400 Systolic blood pressure 118 mm[Hg] Esme Lopez [facility] Encounters Encounter Date Encounter Type Care Provider Facility Start: 02-26-2024 End: 02-26-2024 ambulatory [facility] Work Phone: Start: 02-26-2024 End: 02-26-2024 Patient encounter procedure [facility] Work Phone: Start: 01-04-2024 End: 01-04-2024 ambulatory Sean Jose Other [employer] Other Start: 01-04-2024 Telephone encounter [facility]ARDI [facility] Start: 01-01-2024 End: 01-02-2024 ambulatory SEAN Contreras JOSE Not Available Start: 12-24-2023 End: 12-24-2023 ambulatory Sean Garcia Other [employer] Other Start: 12-24-2023 Telephone encounter Sean Jose [facility]ARD[facility] Start: 12-22-2023 End: 12-22-2023 ambulatory Sean Garcia Other [employer] Other Start: 12-22-2023 Office outpatient visit 15 minutes Sean Garcia [facility] Start: 12-22-2023 End: 12-22-2023 Patient encounter procedure [facility] Start: 09-17-2023 End: 09-17-2023 ambulatory Sean Garcia Other [employer] Other Start: 09-17-2023 Telephone encounter Sean LOMBARDI [facility] Start: 09-07-2023 End: 09-07-2023 ambulatory Sean Garcia Other [employer] Other Start: 09-07-2023 Telephone encounter Sean LOMBARDI [facility] Start: 08-31-2023 End: 08-31-2023 ambulatory Sean Garcia Other [employer] Other Start: 08-31-2023 Encounter for genera l adult medical examination without abnormal findings Sean Garcia [facility] Start: 08-31-2023 Periodic preventive med est patient 40-64yrs Sean Garcia [facility] Start: 07-18-2023 End: 07-18-2023 ambulatory Sean Garcia Other [employer] Other Start: 07-18-2023 Telephone encounter Sean LOMBARDI [facility] Start: 04-03-2023 End: 04-04-2023 ambulatory NARENDRANATH LAKSHMIPATHY . Facility:[facility] Start: 03-10-2023 End: 03-10-2023 ambulatory NARENDRANATH LAKSHMIPATHY . Facility:[facility] Start: 02-24-2023 End: 02-24-2023 ambulatory NARENDRANATH LAKSHMIPATHY . Facility:[facility] Start: 01-22-2023 End: 01-23-[address] AMPARO KULKARNI . Facility:[facility] Start: 01-07-2023 End: 01-07-2023 ambulatory Sean Garcia Other [employer] Other Start: 01-07-2023 Telephone encounter Sean Shah [facility] Start: 01-06-2023 End: 01-06-[address] AMPARO KULKARNI . Facility:[facility] Start: 12-25-2022 End: 02-03-[address] AMPARO KULKARNI . Facility:[facility] Start: 12-15-2022 End: 12-15-2022 ambulatory Sean Garcia Other [employer] Other Start: 12-15-2022 Office outpatient visit 15 minutes Sean Garcia [facility] Start: 12-15-2022 Telephone encounter Sean LOMBARDI [facility] Start: 12-02-2022 End: 12-02-[address] AMPARO KULKARNI . Facility:[facility] Start: 11-28-2022 End: 11-28-2022 ambulatory Sean Garcia Other [employer] Other Start: 11-28-2022 Office outpatient visit 15 minutes Sean Garcia [facility] Start: 11-28-2022 Telephone encounter Sean LOMBARDI [facility] Start: 08-05-2022 End: 08-06-[address] AMPARO KULKARNI . Facility:[facility] Start: 08-05-2022 End: 08-06-[address] AMPARO KULKARNI . Facility:[facility] Start: 02-12-2022 End: 02-12-2022 Patient encounter procedure Esme Lopez [facility] Start: 01-26-2019 End: 01-26-2019 Patient encounter procedure AV BUSTAMANTE Facility:[place] Procedures Date Procedure Procedure Detail Performing Clinician Start: 02-22-2016 General examination of patient Sean Garcia Other Immunizations Immunization Date Immunization Notes Care Provider Robert curry 08-31-2023 influenza, injectable, quadrivalent, preservative free Sean Garcia Other [facility] 10-01-2020 influenza virus vaccine, split virus (incl. purified surface antigen) Sean Garcia Other [employer] Other 10-01-2020 influenza virus vaccine, unspecified formulation [facility] 01-05-2016 tetanus toxoid, reduced diphtheria toxoid, and acellular pertussis vaccine, adsorbed Sean Garcia Other [facility] 12-24-2015 diphtheria, tetanus toxoids and acellular pertussis vaccine, unspecified formulation Sean Garcia Other [facility] 12-25-2011 diphtheria, tetanus toxoids and acellular pertussis vaccine, unspecified formulation Sean Garcia Other [facility] NEGATED: Highlighted row has not occurred!02-12-2022 influenza virus vaccine, unspecified formulation Esme Lopez [facility] NEGATED: Highlighted row has not occurred!01-14-2022 influenza virus vaccine, unspecified formulation Esme Lopez [facility] Payers Date Payer Category Payer Unknown [id number] 2.16.8 [id number] 1965 Unknown [id number] 2.16.84 [id number] 1965 Unknown [id number] 2.16.84 [id number] 1964 Unknown [id number] 2.16.84 [id number] 1964 Unknown [id number] 2.16.84 [id number] 1964 Unknown [id number] 2.16.84 [id number] 1964 Unknown [id number] 2.16.84 [id number] 1964 Unknown [id number] 2.16.84 [id number] 1964 Unknown [id number] 2.16.84 [id number] 1964 Unknown [id number] 2.16.84 [id number] 1964 Unknown [id number] 2.16.84 [id number] 1960 [facility] [id number] 1960 Private Health Insurance [id number] Self-pay Self Pay [id number] Unknown [employer] [id number] Social History Date Type Detail Facility Start: 02-12-2022 End: 12-22-2023 Tobacco smoking status Never smoked tobacco (finding) [facility] Tobacco smoking status Never [facility] Sex Assigned At Male [facility] Start: 1965 Sex Assigned At Male F [facility] Clinical Notes 02-12-2022 to 12-24-2023 Note Date & Type Note Facility 12-24-2023 Evaluation note Encounter Date Diagnosis Assessment Notes Dec, Nocturnal headaches (ICD-10 - R51.9) [facility] Other 01-30-2024 Evaluation note* Encounter Date Diagnosis Assessment Notes Treatment Notes Treatment Clinical Notes Nov, Nocturnal headaches (ICD-10 - R51.9) New onset w/ daily frequency Concerning w/ new headache in 58 y/o w/ speech impairment. His symptoms are concerning. I recommend MRI to r/o CVA, tumor Nov, Migraine with aura and without status migrainosus, not intractable (ICD-10 - G43.109) Controlled. No preventive treatment necessary. Continue Motrin for abortive treatment Nov, Anarthria (ICD-10 - R47.1) Begin ASA 81mg qd Reviewed stroke symptoms and instructed to go to ER for suspicious symptoms [facility] [employer] [facility] Other 10-09-2023 Evaluation note* Encounter Date Diagnosis Assessment Notes Treatment Notes Treatment Clinical Notes Aug, Wellness examination (ICD-10 - Z00.00) Healthy diet and exercise. Reviewed age-appropriate preventive testing recommended. Aug, DARRELL (generalized anxiety disorder) (ICD-10 - F41.1) Healthy diet and exercise. Xanax as needed for extreme anxiety Aug, Lumbar spondylosis (ICD-10 - M47.816) The patient is instructed to avoid bending, twisting or lifting. They are to use intermittent heat and ice as needed. They may schedule a massage or gentle manipulation. They may safely use Tylenol as needed. Aug, Screening PSA (prostate specific antigen) (ICD-10 - Z12.5) Yearly JAN and PSA [employer] Other 03-02-2023 NoteCONSULTATION CONSULTATION DATE: 01/22/2023 HISTORY: This is a 57-year-old gentleman who returns to the clinic status post #2 bilateral MBB of T7, T8 and T9, T10 completed on 01/06/2023 that afforded him 95% relief for one day. During that time, the patient had longer endurance with physical activity, including lifting, bending and walking. Today, he rates his 7/10 which is near his baseline. It is aggravated by evening hours, any physical activity, lifting and lying down. Medications include baclofen 10 mg q.h.s., multivitamin regimen, ibuprofen 400 mg p.r.n. and Xanax 0.5 mg q.h.s. p.r.n. Patient's REVIEW OF SYSTEMS / PAST MEDICAL HISTORY / ALLERGIES and IMAGES have been reviewed and noted on the chart. PHYSICAL EXAM: VITAL SIGNS: Blood pressure is 125/86. Temperature is 97.3. He is 5'9 and weighs 74.5 kg. GENERAL IMPRESSION: Pleasant, appropriate, in no acute distress. FOCUSED EXAM - BACK: Range of motion is guarded in lateral rotation and flexion/extension. Reproduction of spinal axial pain noted to direct compression along the thoracic facets of T7, T8 and T9, T10 with fullness palpated as well. This is indicative of facet arthropathy, thoracic spondylosis. MUSCULOSKELETAL: Motor is intact to upper and lower extremities, 5/5. No vasomotor weakness noted. NEUROLOGICALLY: Patient is cognitively intact, negative polyneuropathy. Cranial nerves are intact. DIAGNOSIS: Thoracic pain, thoracic spondylosis, thoracic degenerative disc disease. PLAN: We will progress forward with the radiofrequency ablation, starting on the right side of T7, T8 and T9, T10, subsequently move to the left. Following both procedures, patient will be brought back to the clinic. In the meantime, he is to continue with his extension exercises and baclofen 10 mg q.h.s. Patient does agree with this plan.[facility] [id number] Note CONSULTATION CONSULTATION DATE: 12/25/2022 HISTORY OF PRESENT ILLNESS: This is a pleasant, 57-year-old gentleman who returns to the clinic status post #1 bilateral MBB of T7, T8 and T9, T10 completed on 12/02/2022. The patient stated he received 95% relief for one and a half days. During that time, he had increased endurance with physical activity and bending and lifting were non-painful. Today, his pain is a 4/10. Lifting, prolonged sitting and physical activity and sleep do aggravate his pain. Heat temporarily decreases his pain. He will occasionally take an ibuprofen that he feels is helpful. Patient's REVIEW OF SYSTEMS / PAST MEDICAL HISTORY / ALLERGIES and IMAGES have been reviewed and noted on the chart. PHYSICAL EXAM: VITAL SIGNS: Blood pressure 147/87, heart rate is 61. Temperature is 98. He is 5'9 , weighs 73 kg. GENERAL IMPRESSION: Pleasant, appropriate, no acute distress. FOCUSED EXAM - BACK: Reproduction of spinal axial pain noted upon compression along the thoracic facets of T7, T8 and T9, T10. Trapezius muscles are non-spasmodic. Range of motion is guarded in lateral rotation and flexion/extension. MUSCULOSKELETAL: Motor is intact, 5/5 bilaterally, upper and lower extremities. Good muscle tone. No vasomotor weakness noted. NEUROLOGICAL: Patient is cognitively intact. Bilateral upper and lower reflexes are 2/2 bilaterally. DIAGNOSIS: Thoracic pain, thoracic spondylosis, thoracic degenerative disc. PLAN: We will proceed with #2 bilateral MBB of T7, T8 and T9, T10. We will also start him on baclofen 10 mg q.h.s. Education was given into doing extension exercises twice daily, in addition to heat application. Patient agrees with the plan of care, will be followed up in the clinic thereafter.[facility] [id number] Evaluation note* Encounter Date Diagnosis Assessment Notes Treatment Notes Treatment Clinical Notes Nov, Acute salpingitis of right eustachian tube (ICD-10 - H68.011) Yawn, chew gum, sudafed as well as prescribed medication Nov, Non-recurrent acute serous otitis media of right ear (ICD-10 - H65.01) Initiate antibiotics [employer] Other 01-06-2023 Evaluation note* Encounter Date Diagnosis Assessment Notes Treatment Notes Treatment Clinical Notes Nov, DARRELL (generalized anxiety disorder) (ICD-10 - F41.1) Healthy diet and exercise. Continue Xanax as needed Nov, Impacted cerumen of right ear (ICD-10 - H61.21) Avoid using Qtips. Can use Debrox as needed. BOONE w/ irrigation and spoon. Post irrigation and removal of cerumen there remained a small amount of cerumon on the floor of the EAC. The TM as visualized and intact. The patient stated that he did have improvement w / hearing w/o tinnitus or vertigo Nov, Lumbar spondylosis (ICD-10 - M47.816) The patient is instructed to avoid bending, twisting or lifting. They are to use intermittent heat and ice as needed. They may schedule a massage or gentle manipulation. They may safely use Tylenol as needed. Nov, Erectile dysfunction due to arterial insufficiency (ICD-10 - N52.01) Sildenafil tolerated and beneficial. [employer] Other 09-13-2022 NoteCONSULTATION CONSULTATION DATE: 08/05/2022 CHIEF COMPLAINT: Mid back pain. HISTORY OF PRESENT ILLNESS: This is a very pleasant, 66-year-old gentleman who is known to the Pain Clinic. The patient was seen remotely with regards to his thoracic mid back pain. The last visit was more than 2+ years ago where he had had a therapeutic rhizotomy, radiofrequency ablation. This has afforded the patient substantial improvement. The patient states the pain has been gradually increasing. The patient is a very active individual who enjoys motor bike riding and is functioning at a high level. The patient states sitting too long aggravates the patient's pain. Curling up in a position help mitigate the thoracic pain. Heavy usage of the arms and lifting aggravate the pain, as do ADLs and activities. Heat mitigates the patient's pain symptomatology. The patient takes Flexeril 10 mg on a p.r.n. basis, ibuprofen 400 mg. The patient also has Xanax that he takes intermittently. The patient takes a multivitamin regimen and is very cognizant with regards to his own wellness. The patient has an inversion table; however, has not been using it to the level that he should. The patient's PAST MEDICAL HISTORY / SURGICAL HISTORY / REVIEW OF SYSTEMS are noted on the chart along with the MEDICATION LIST / ALLERGIES but no recent RADIOLOGICAL IMAGES. PHYSICAL EXAMINATION: GENERAL APPEARANCE: Upon physical examination, this is a pleasant, aesthetically built gentleman, who does not appear to be in any acute distress. VITAL SIGNS: Stable at 137/89 with a heart rate of 70. At a height of 5'0 , the patient weighs 76 kg. HEAD: Atraumatic, normocephalic. THORACIC: Paravertebral tightness is noted and part of the reproduction of the patient's pain symptomatology along the thoracic facet upon extension/compression. EXTREMITIES: No clubbing or cyanosis. MUSCULOSKELETAL: Intact in the upper and lower extremities. No radiating pain into the chest wall anteriorly. NEUROLOGICALLY: The patient is intact. PSYCHIATRICALLY: Affect is appropriate. IMPRESSION: Mid back pain, thoracic spondylosis, thoracic degenerative discs. PLAN: Extension exercises are given to the patient. The patient is to add curcumin to his diet along with magnesium glycinate. We will get an x-ray of his thoracic spine, flexion/extension. The patient understands and would like to progress. CC: Sean Garcia D.O.[facility]03-23-2022 Hospital Discharge instructions Patient Education 02/12/2022 15:17:19 Colon Polyps Colon Polyps Polyps are tissue growths inside the body. Polyps can grow in many places, including the large intestine (colon). A polyp may be a round bump or a mushroom-shaped growth. You could have one polyp or several. Most colon polyps are noncancerous (benign). However, some colon polyps can become cancerous over time. Finding and removing the polyps early can help prevent this. What are the causes? The exact cause of colon polyps is not known. What increases the risk? You are more likely to develop this condition if you: Have a family history of colon cancer or colon polyps. Are older than 50 or older than 45 if you are . Have inflammatory bowel disease, such as ulcerative colitis or Crohn's disease. Have certain hereditary conditions, such as: ?Familial adenomatous polyposis. ?Cronin syndrome. ?Turcot syndrome. ?Peutz Jeghers syndrome. Are overweight. Smoke cigarettes. Do not get enough exercise. Drink too much alcohol. Eat a diet that is high in fat and red meat and low in fiber. Had childhood cancer that was treated with abdominal radiation. What are the signs or symptoms? Most polyps do not cause symptoms. If you have symptoms, they may include: Blood coming from your rectum when having a bowel movement. Blood in your stool. The stool may look dark red or black. Abdominal pain. A change in bowel habits, such as constipation or diarrhea. How is this diagnosed? This condition is diagnosed with a colonoscopy. This is a procedure in which a lighted, flexible scope is inserted into the anus and then passed into the colon to examine the area. Polyps are sometimes found when a colonoscopy is done as part of routine cancer screening tests. How is this treated? Treatment for this condition involves removing any polyps that are found. Most polyps can be removed during a colonoscopy. Those polyps will then be tested for cancer. Additional treatment may be needed depending on the results of testing. Follow these instructions at home: Lifestyle Maintain a healthy weight, or lose weight if recommended by your health care provider. Exercise every day or as told by your health care provider. Do not use any products that contain nicotine or tobacco, such as cigarettes and e-cigarettes. If you need help quitting, ask your health care provider. If you drink alcohol, limit how much you have: ?0 1 drink a day for women. ? 0 2 drinks a day for men. Be aware of how much alcohol is in your drink. In the [place] one drink equals one 12 oz bottle of beer (355 mL), one 5 oz glass of wine (148 mL), or one 1 oz shot of hard liquor (44 mL). Eating and drinking Eat foods that are high in fiber, such as fruits, vegetables, and whole grains. Eat foods that are high in calcium and vitamin D, such as milk, cheese, yogurt, eggs, liver, fish, and broccoli. Limit foods that are high in fat, such as fried foods and desserts. Limit the amount of red meat and processed meat you eat, such as hot dogs, sausage, aponte, and lunch meats. General instructions Keep all follow-up visits as told by your health care provider. This is important. ?This includes having regularly scheduled colonoscopies. ?Talk to your health care provider about when you need a colonoscopy. Contact a health care provider if: You have new or worsening bleeding during a bowel movement. You have new or increased blood in your stool. You have a change in bowel habits. You lose weight for no known reason. Summary Polyps are tissue growths inside the body. Polyps can grow in many places, including the colon. Most colon polyps are noncancerous (benign), but some can become cancerous over time. This condition is diagnosed with a colonoscopy. Treatment for this condition involves removing any polyps that are found. Most polyps can be removed during a colonoscopy. This information is not intended to replace advice given to you by your health care provider. Make sure you discuss any questions you have with your health care provider. Document Released: 08/05/2005 Document Revised: 02/24/2019 Document Reviewed: 02/24/2019 [employer] Patient Education 2020 [employer]OLED. Follow Up Care 01/29/2022 13:30:30 With:Esme Lopez CNP Address: When:1 year only if needed [facility] Evaluation + Plan note No data available for this section [facility] Evaluation noteNo InformationNort Brightergy Other Evaluation noteNo assessment information available [facility] Work Phone: [facility] general Narrative - Reported* Type Description Date Medical History Chronic lower back pain Medical History erectile dysfunction Medical History lumbar spondylosis Medical History allergic contact dermatits due t o other agents Medical History hyperlipidemia Medical History generalized anxiety disorder Medical History perianal dermatitis Surgical History right hip replacement 2011 Surgical History wisdom teeth Surgical History left hip replacement 01/2019 Surgical History excision ganglion right thumb Hospitalization History see surgical history [facility] Other [facility] general Narrative - Reported* Type Description Date Medical History Chronic lower back pain Medical History erectile dysfunction Medical History lumbar spondylosis Medical History allergic contact dermatits due t o other agents Medical History hyperlipidemia Medical History generalized anxiety disorder Medical History perianal dermatitis Surgical History right hip replacement 2011 Surgical History wisdom teeth Surgical History left hip replacement 01/2019 Surgical History excision ganglion right thumb Surgical History Colonoscopy 04/2021 Hospitalization History see surgical history [facility] Other History general Narrative - Reported* Type Description Date Medical History Chronic lower back pain Medical History erectile dysfunction Medical History lumbar spondylosis Medical History allergic contact dermatits due t o other agents Medical History hyperlipidemia Medical History generalized anxiety disorder Medical History perianal dermatitis Surgical History right hip replacement 2011 Surgical History wisdom teeth Surgical History left hip replacement 01/2019 Surgical History excision ganglion right thumb Surgical History Colonoscopy w/ polypectomy, (re peat in 5 years) 01/2022 Hospitalization History see surgical history [facility] Other Reason for referral (narrative)* Reason 03/18/23 Referral for plugged right ear Diagnosis 1 Acute salpingitis of right eustachian tube (H68.011) Referral Organization [facility] Referring Provider First Name Sean Referring Provider Last Name Jose Referring Provider Specialty Internal Me dicine Referred Organization [facility] Referred Provider Amie Hernandez Referred Address ,[place], [place],[address] Referred Provider Specialty Ear, Nose an d Throat Referral Priority Routine Referral Appointment Date 2023-03-18 General Notes Patient presents w/ right sided sore throat associated w/ plugged right ear. Jihan Shine 01/08/2023 09:27:32 AM >received today, insurance and DL attached, referral faxed P2P Jihan Shine 01/15/2023 09:23:49 AM >faxed first attempt letter Jihan Shine 01/15/2023 03:29:50 PM >received fax with appt date and time Clinical Notes This patient present ed with symptoms of right sided sore throat and plugged right ear, that had begun over several weeks. He denied fever, chills, purulent rhinorrhea, otorrhea, tinnitus or vertigo. He was prescribed a Zpak, Prednisone and Flonase. He was instructed to use an antihistamine/decongestant combination and to attempt to pop his ears. Despite this treatment, his symptoms continue. He is being referred for further evaluation and treatment. [facility] Other Summary Purpose Family History Relationship Condition Age at Onset Recorded Date/T leesa Not Specified Diabetes mellitus Unknown Advance Directives Advance Directive Response Recorded Date/ Time Advance Directives No September 11, 2017 1:10pm Chief Complaint and Reason for Visit Chief Complaint Headaches Headaches Additional Source Comments (unrecognized sect ion and content) No Status Records FoundNo Status Records FoundNo Status Records FoundNo Status Records Found INFORMATION SOURCE (unrecogn ized section and content) DATE CREATED AUTHOR 01/28/2019 [facility] DATE CREATED AUTHOR AUTHOR'S ORGANIZ ATION [facility] DATE CREATED AUTHOR AUTHOR'S ORGANIZ ATION 04/04/2023 [facility] DATE CREATED AUTHOR AUTHOR'S ORGANIZ ATION 01/06/2024 [facility] EPIC REASON FOR VISIT (unrecogniz ed section and content) Wants in office todayEarache Wants in TodayEarsNo InformationEar ProblemsNo InformationWellnessNo InformationNo InformationLab resultsorderMRIHeadaches Care Teams (unrecognized sec tion and content) Team Status: Active Member Role Status Dates Sean Garcia DO Primary Care Provider Active Team Status: Inactive Member Role Status Dates Sean Garcia DO Attending Provider Active Sta rt: December 22, 2023 End: December 22, 2023 Team Status: Inactive Member Role Status Dates Sean Garcia DO Primary Care Provide r, Attending Provider Active Start: February 26, 2024 End: February 26, 2024 Goals (unrecognized section and content) Goals may be documented in a n alternate section FOR RECORDS PERTAINING TO PATIENTS WHO ARE OR HAVE BEEN ENROLLED IN A CHEMICAL DEPENDENCY/SUBSTANCEABUSE PROGRAM, SOME INFORMATION MAY BE OMITTED. This clinical summary was aggregated from multiple sources. Caution should be exercised in using it in the provision of clinical care. This summary normalizes information from multiple sources, and as a consequence, information in this document may materially change the coding, format and clinical context of patient data. In addition, data may be omitted in some cases. CLINICAL DECISIONS SHOULD BE BASED ON THE PRIMARY CLINICAL RECORDS. [facility] [employer] [facility]. provides no warranty or guarantee of the accuracy or completeness of information in this document.
--- NOTE | 2024-03-02 07:49 | P.CN_ITS ---
Consult Note: HPI Data of Consult Patient: known to practice within the last 3 years Requesting Physician: Radha Cordova NP Primary Care Provider: Sean Garcia DO Consult Narrative Reason for consult: f/u Narrative: Fran Lundy a pleasant 58 year old male presents for evaluation and management of back pain. Patient has a hx of multilevel thoracic pain that has responded well to facet joint RFAs in the past, most recently patient underwent right T3/4 T4/5 facet RFA, in the past right and left T7,8 T7,9 facet RFAs. Patient reporting pain from T7 area to T10 areas, patients pain 8/10 today aching sharp burning, experiencing radicular pain that is responding well to steroid pack that he started on 02/28, however it is not helping with the moderate to severe axial pain. Patient has been utilizing ibuprofen 400mg PRN without improvement, mild improvement from baclofen 10mg HS. Patient noticing increase in headaches which he is following with PCP. Patient continues to engage in HEP greater than 6 weeks without improvement. cc:: CC: Radha Cordova NP Review of Systems 2 ROS0 Status of ROS 10 or more systems reviewed and unremark able except as noted in history and below Musculoskeletal Reports: back pain PFSH PFSH Surgical History S/P total hip arthroplasty ?Z96.649 - Presence of unspecified artificial hip joint (ICD-10) Meds Home Medications and Allergies Home Medications ?Medication ?Instructions ?Recorded ?Confirmed ?Type aspirin 81 mg capsule 81 mg PO DAILY 04/28/23 08/11/23 History baclofen 10 mg tablet 10 mg PO .hs 04/28/23 03/02/24 History calcium carbonate 600 mg calcium 600 mg PO BID 04/28/23 08/11/23 History (1,500 mg) tablet (Calcium) glucosamine [id number] 1 tab PO DAILY 04/28/23 08/11/23 History roxanna 1,500 mg-400 unit-100 mg tablet (Osteo Bi-Flex (5-Loxin)) multivitamin 1 tab PO DAILY 04/28/23 08/11/23 History omega-3 fatty acids-fish oil 360 1 cap PO DAILY 04/28/23 08/11/23 History mg-1,200 mg capsule (Fish Oil) testosterone cypionate .ROUTE .every 2 weeks 04/28/23 History vitamins-lipotropics tablet 1 tab PO DAILY 04/28/23 08/11/23 History etodolac 500 mg tablet 500 mg PO Q12H PRN pain 03/02/24 03/02/24 History Allergies Allergy/AdvReac Type Severity Reaction Status Date / Time No Known Drug Allergies Allergy Verified 08/11/23 13:13 Exam Constitutional Documenting provider has reviewed patient's vital signs: yes Common normals: no apparent distress, oriented x3, healthy appearing, alert and well nourished General appearance: cooperative HENMT Common normals: normocephalic, hearing grossly normal bilaterally and moist oral mucous membranes Head and scalp: normocephalic Eye Common normals: PERRL Pupil: PERRL Neck & C-Spine Common normals: full ROM General: normal visual inspection Chest Common normals: inspection of chest normal Respiratory Common normals: normal respiratory effort, no retractions and no use of accessory muscles Back & Pelvis Thoracic spine/upper back: normal to inspection, thoracic ROM normal and pain with ROM Lumbar spine/lower back: normal to inspection and lumbar ROM normal Other: pain noted on exam in below areas, patient reporting altered sensation following T7-T10 dermatomal pattern Back image (male): 2 1. Extremity Common normals: normal to inspection and full ROM Neuro Common normals: oriented x3, CN's II-XII intact bilaterally, moves all extremities, no focal motor deficits, no sensory deficits noted, deep tendon reflexes 2+ bilaterally and gait normal Sensorium/orientation: alert Motor exam: strength 5/5 throughout and no movement abnormalities noted Psych Common normals: mental status grossly normal, thought process normal, cooperative, affect normal, speech normal and activity/motor behavior normal Speech: normal speech Thought process: normal thought process Results Additional Findings Additional findings: If on a controlled substance or opioids, I have checked an [place] report on this patient and there are no aberrancies noted in the prescribing history.??If on a controlled substance or opioid a drug screen was completed and reviewed within the last year, and if there has not been a drug screen completed we ordered one today to monitor higher risk, state monitored pain medication use. As part of providing excellent, safe, comprehensive care, the following was completed at our patient's visit: 1. A medication reconciliation and review to ensure accurate knowledge of current/active medications, including asking our patients to inform us about any [id number] medications or herbal remedies/nutritional supplements/alternative remedies. 2. A review to specifically ensure our patients have had annual screening for screening for depression, screening for tobacco use, and screening for unhealthy alcohol use. For concerning screenings had a discussion with the patient, provided patient education, and recommended follow-up with primary care provider when appropriate. If patient noted with a risk of falling, they received education on strength, gait, and balance training to prevent future risk of falling. Assessment and Plan Assessment and Plan (1) Thoracic radiculopathy: (2) Thoracic spondylosis: (3) Lumbar spondylosis: (4) Muscle spasm: Plan thoracic mri without contrast in consideration of additional injection options vs surgical referral continue baclofen 10mg HS as needed continue f/u with PCP for headaches f/u after MRI
== END 2024-03-02 07:24 | disposition home or self-care (01) ==
LOC: PM 07:23
PROVIDERS: PCP Internal Medicine; Visit Provider Nurse Practitioner
DX: M54.14 Radiculopathy, thoracic region (principal); M47.814 Spondylosis without myelopathy or radiculopathy, thoracic region; M47.816 Spondylosis without myelopathy or radiculopathy, lumbar region; M62.838 Other muscle spasm
CPT/HCPCS: G0463

== ENCOUNTER 2024-06-23 09:50 | Outpatient (OUT) | payer BC, SELFPAY ==
--- OUTSIDE RECORDS SUMMARY | 2024-06-23 09:54 | XMS_ITS | CCD ---
Author Organization [facility] CliniSywv Care Team Providers Care Medication Administration Professional Name Role Phone AV BUSTAMANTE Attending Unavailable SEAN GARCIA Primary Care Unavailable IGNACIA SCOTT Primary Care Physician Sean Garcia SHAD ., DR AMPARO Valentine Admitting Unavailable KULKARNI ., DR AMPARO Valentine Attending Unavailable JOSE, DR BHAKTA Primary Care Unavailable KULKARNI ., DR AMPARO Valentine Consulting Unavailable MARTELL ., LÓPEZ Consulting Unavailable KULKARNI ., DR AMPARO Valentine Admitting Unavailable KULKARNI ., DR AMPARO Valentine Attending Unavailable JOSE, DR BHAKTA Primary Care Unavailable KULKARNI ., DR AMPARO Valentine Consulting Unavailable KULKARNI ., DR AMPARO Valentine Admitting Unavailable KULKARNI ., DR AMPARO Valentine Attending Unavailable JOSE, DR BHAKTA Primary Care Unavailable ZIEBDELILAH, DR NINA Barreto Consulting Unavailable KULKARNI ., DR AMPARO Valentine Consulting Unavailable LAKSHMIPATHY ., JENNIFER Admitting [place] vailable LAKSHMIPATHY ., JENNIFER Attending [place] vailable JOSE, DR BHAKTA Primary Care Unavailable LAKSHMIPATHY ., JENNIFER Consulting [place] vailable LAKSHMIPATHY ., JENNIFER Admitting [place] vailable LAKSHMIPATHY ., CHLOEATH Attending [place] vailable JOSE, DR BHAKTA Primary Care Unavailable LAKSHMIPATHY ., CHLOEATH Consulting [place] vailable LAKSHMIPATHY ., NARENDCARLOSATH Admitting [place] vailable HALKER .SCAR Attending Unavailable JOSE, DR BHAKTA Primary Care [...] ., DR AMPARO Valentine Consulting Unavailable MARTELL ., LÓPEZ Consulting Unavailable KULKARNI .DR AMPARO Admitting Unavailable SHAD .DR AMPARO Attending Unavailable JOSE, DR BHAKTA Primary Care Unavailable SHAD ., DR AMPARO Valentine Consulting Unavailable SEAN GARCIA Referring Unavailable CESAR MARCH Referring Unavailable Allergies Allergy Classification Reported Allergen(s) Allergy Type Date of Onset Reaction(s) Facility (1 source) patient allergy list reviewed by nurse or physicia Propensity to adverse reactions Comment:[employer] Other Medications Current Medications Medication Drug Class(es) Dates Sig (Normalized) Sig (Original) ALPRAZolam 0.5 mg oral tablet (18 sources) Benzodiazepine Start: 01-26-2024 take 0.5 mg [...] 11, 2017 12:00am January 26, 2024 6:03pm amLODIPine 2.5 mg oral tablet (1 source) Dihydropyridine Calcium Channel Brandin Start: 03-17-2024 take 2.5 mg by mouth once daily Amlodipine Active 2.5 MG PO Daily March 17, 2024 12:00am Aspirin (3 sources) Platelet Aggregation Inhibitor, Nonsteroidal Anti-inflammatory Drug Start: 01-14-2022 aspirin Refills(s) 0 Start Date: 01/14/22 Status: Ordered Start: 09-12-2017 End: 10-12-2017 take 1 tablet by mouth once daily Aspirin (Aspir-) 81 mg tablet,delayed release (DR/EC) Discontinued 81 MG PO Daily September 12, 2017 12:00am October 12, 2017 1:03am baclofen 10 mg oral tablet (9 sources) gamma-Aminobutyric Acid-ergic Agonist Start: 02-25-2024 take 10 mg by mouth three times daily Baclofen Active 10 MG PO Three times daily February 25, 2024 12:00am take 1 tablet by mouth every eig ht hours Baclofen 10 MG 1 tablet as needed Orally Three times a day for 30 days Active Chondroitin Sulfates / Glucosamine (3 sources) Start: 01-14-2022 Osteo Bi-Flex Refill(s) 0 [...] tablet Orally Three times a day Active etodolac 500 mg oral tablet (1 source) Nonsteroidal Anti-inflammatory Drug Start: take 500 mg by mouth every twelve hours Etodolac Active 500 MG PO Every 12 hours 60 30 February 26, 2024 12:00am Fish Oils (1 source) Start: Fish Oil Oral, Refill(s) 0 Start Date: 01/14/22 Status: Ordered hydrocortisone 25 mg/ml topical cream (16 sources) Corticosteroid Start: Hydrocortisone Active 1 APPLIC TOPICAL Daily February 25, 2024 12:00am Hydrocortisone 2 .5 % 1 application Externally Once a day Active Hydrocortisone 2 .5 % 1 application Externally Once a day Active Multi Vitamin+ (1 source) Start: 01-14-2022 Multi Vitamin+ Refill(s) 0 Start Date: 01/14/22 Status: Ordered sildenafil 100 mg oral tablet (16 sources) Phosphodiesterase 5 Inhibitor Start: 02-25-2024 Sildenafil [...] Drug Class(es) Dates Sig (Normalized) Sig (Original) amitriptyline hydrochloride 10 mg oral tablet (1 source) Tricyclic Antidepressant Start: 02-26-2024 End: 04-22-2024 take 10 mg by mouth once daily at bedtime Amitriptyline Discontinued 10 MG PO Daily at bedtime February 26, 2024 12:00am April 22, 2024 2:27pm azithromycin 250 mg oral tablet (14 sources) [...] / neomycin 3.5 mg/ml / polymyxin b 57355 unt/ml otic suspension (14 sources) Aminoglycoside Antibacterial, Polymyxin-class Antibacterial, Corticosteroid Neomycin-Polymyxin -HC 3.5-55052-4 4 drops Otic Three times a day for 7 days Not-Taking/PRN lisinopril 5 mg oral tablet (2 sources) Angiotensin Converting Enzyme Inhibitor Start: 09-12-2017 End: 10-12-2017 take 5 mg by mouth once daily Lisinopril Discontinued 5 MG PO Daily September 12, 2017 12:00am October 12, 2017 1:03am Lofiichwxyzv-Tjql-Dq lic Acid (Centrum) 18-400 mg-mcg Tablet (2 sources) Start: 09-11-2017 End: 02-25-2024 take 1 tablet by mouth once daily Multivitamin-Iron- Folic Acid (Centrum) 18-400 mg-mcg Tablet Discontinued 1 TAB PO Daily September 11, 2017 12:00am February 25, 2024 10:26am [place] 9-Okp-Ixr-Fish Oil (Fish Oil) 900-1,400 mg Capsule,Delayed Release(Dr/Ec) (2 sources) Start: 09-11-2017 End: 02-25-2024 [place] 3-Jrq-Cut-Fish Oil (Fish Oil) 900-1,400 mg Capsule,Delayed Release(Dr/Ec) [...] Nov, Not-Taking/PRN simvastatin 40 mg oral tablet (2 sources) HMG-CoA Reductase Inhibitor Start: 09-12-2017 End: 10-12-2017 take 40 mg by mouth once daily Simvastatin Discontinued 40 MG PO Daily September 12, 2017 12:00am October 12, 2017 1:03am Vitamins-Lipotropics (Lipo-Flavonoid Plus) 200-100 mg Tablet (2 sources) Start: 09-11-2017 End: 02-25-2024 take 100-200 mg by mouth twice daily Vitamins-Lipotropi cs (Lipo-Flavonoid Plus) 200-100 mg Tablet Discontinued 100 - 200 MG PO Twice daily September 11, 2017 12:00am February 25, 2024 10:26am Problems Active Problems Problem Classification Problem Date Documented Date Episodic/Chronic Allergic reactions (5 sources) Allergic contact dermatitis; Translations: [Allergic contact dermatitis due to other agents] 02-25-2024 Episodic Anxiety disorders (20 sources) Generalized anxiety disorder; Translations: [Generalized anxiety disorder] Chronic Cardiac dysrhythmias (2 sources) Cardiac arrhythmia; Translations: [Cardiac arrhythmia, unspecified] 09-11-2017 Chronic Diabetes mellitus without complication (1 source) Impaired fasting glycemia; Translations: [Impaired fasting glucose] Episodic Diseases of white blood cells (1 source) Leukopenia; Translations: [Decreased white blood cell count, unspecified] Onset: 05-27-2016 Chronic Disorders of lipid metabolism (3 sources) Familial hypercholesterolemia; Translations: [Familial hypercholesterolemia] 02-25-2024 Chronic Esophageal disorders (1 source) Esophageal disorders; Translations: [Gastro-esophageal reflux disease with esophagitis, without bleeding] Onset: 03-23-2018 Headache; including migraine (8 sources) Migraine with aura; Translations: [Migraine with aura, not intractable, without status migrainosus] Chronic Headache; including migraine (2 sources) Hypnic headache; Translations: [Hypnic headache] 02-26-2024 Episodic Hemorrhoids (2 sources) Hemorrhoids; Translations: [Unspecified hemorrhoids] [...] [Tinnitus, bilateral] Episodic Other male genital disorders (16 sources) Erectile dysfunction co-occurrent and due to arterial insufficiency; Translations: [Erectile dysfunction due to arterial insufficiency] 02-25-2024 Chronic Other male genital disorders (1 source) Erectile dysfunction due to arterial insufficiency Chronic Other male genital disorders (2 sources) Male erectile dysfunction, unspecified; Translations: [Erectile dysfunction] 02-25-2024 Chronic Other nervous system disorders (1 source) Other chronic pain; Translations: [OTHER CHRONIC PAIN] Onset: 12-03-2022 Chronic Other nervous system disorders (1 source) Mononeuritis; Translations: [Unspecified mononeuritis of lower limb] Onset: 02-06-2017 Chronic Other nervous system disorders (1 source) Dysarthria and anarthria Episodic Other nervous system disorders (2 sources) Numbness of upper limb; Translations: [Anesthesia of [...] Spondylosis; intervertebral disc disorders; other back problems (14 sources) Pain in thoracic spine; Translations: [Dorsalgia, unspecified] Onset: 04-19-2014 Episodic Transient cerebral ischemia (2 sources) Cerebral ischemia; Translations: [Transient cerebral ischemic attack, [...] Name Value Interpretation Reference Range Facility MR THORACIC SPINE WO CONTRAS Ton 03-15-2024 MR THORACIC SPINE WO CONTRAST EXAMINATION: MR THORACIC SPINE WO CONTRAST HISTORY: Thoracic region radiculopathy. COMPARISON: None available TECHNIQUE: Multiplanar multisequence MRI of the thoracic spine was performed Without contrast. FINDINGS: The thoracic spinal cord is normal in signal and morphology. No focal cord signal abnormality. The alignment of the thoracic spine is anatomic. The vertebral body heights are well maintained. No aggressive bone marrow signal abnormality. No significant disc bulge, spinal canal stenosis or neuroforaminal stenosis. Visualized paravertebral soft tissues are grossly unremarkable. IMPRESSION: Normal signal and morphology of the thoracic spinal cord. No significant disc bulge. No high-grade neural foraminal or spinal canal stenosis. ELECTRONICALLY SIGNED BY: Carlos Dale, DO Normal Not Available MR BRAIN WO CONTRASTon 01-01 MR BRAIN [...] by: NINA SOLIS Date: 2022-08-07 15:[address] [facility] Reminderson 04-08-2022 Reminders - From: Justin Larry To: [facility] - Reminders/Recalls; Sent: 04/08/2022 18:13:16 EDT Show up: 12/24/2026 18:13:00 EST Subject: Ambulatory Reminder - 5 year colon recall Due Date/Time: 01/28/2027 18:13:00 EST Reminder/Recall Repeat colonoscopy in 5 years (2026) due to polyps Normal [facility] Ambulatory Visit Summaryon 0 3-23-2022 Ambulatory Visit Summary ERICK, FRAN :1965 Visit Date:02/12/2022 Ambulatory Visit Instructions Your [...] scheduled colono (more content not included)... Normal [facility] Gastroenterology Office/Clin ic Noteon 02-12-2022 Gastroenterology Office/Clinic [...] Not Given Parent Or Guardian Refuses Normal [facility] Comment on above: Result Comment: Elec tronically [...] 08/05/2005 Document Revised: 02/24/2019 Document Reviewed: 02/24/2019 [employer] Patient Education ? 2019 [employer]. [facility] Coding Summary.on 02-03-2022 Coding Summary. CD:[id number] Gh0bWw+PGhlYWQ+PE1FV LDoU80rfJHfaX5CH8eBS R9TWROHICZHJJ3EQB0xp FA6GYwiJ0WslcEj ZdisvGLlUN84NAp2WTM5 oZvpGNvgyN5jgEEvT4y6 FgSyUJ26gV83GHvnYVMj ErH3TmQlxdbavYPp F0nhBqQtmRWgPfd+PHRh YmxlIHdpZHRoPScxMDAl GeApsWkqQA9wEm0lZOEz LWNvbGxhcHNlOiBj v8tuGSEaFRyuMG7kkDpo F5LfkXF8PVEgn8e8Ed41 dHI+ARPpCAV1mZdqCLks s007ZuZni8ifWCX9 yGHmUNlsSCT1V82nt0P7 OBPxDDFpYSR2dQE5nX3z oLtrtukqN1SsuBJwEvA1 SNC6oEZdbR7qmRzt dgqwcI6bVqm+G31ALV9J LVRVCS3TEse9S0UnSyfq dHI+ZU99ASJcKZ52vDAs zRCkp4mcmUu7ZyZm GJKmHMV7oSfuCDxje7Pv FWOqB75lnUDwc6D3LLPe dQqnlXPmJcYesKA7zC9u IRpwxrwue7ixkzrk Xiymf8dcwh29wN50A64e BYckZCXgVFH6ZUVnEMHf oRylks9amP4aTl6+IDxj v6ehc2jrxIb6AvJx RTZvdjGhePkwXYX8s6Rc Ob64R7CenJxxz1VkZgv2 su87zURqr2A7tJM8XVuz NRKljD9xEMedLgZ7 KDVxHyFeyK99vPYzMCeh Hx8bhBtbbDgcVE4pYWGt vngbTTYbrV0pMVDqcGHu aSadBC5lCYSfimio l779HbZrIIG6OBTciGYc K7NhhG1xQkWcSMInMGZq E0DwjQPuCTuoL999VEmi XdB4BCGiniNaL9Fd JCYypWynNjO5a7S1Xa7Z g2BfmdueYFS7JBobGFYu CuJ7MlDwAgM8P1ShSgs6 FIVsbTgjRR2nT5Cn STDtefvdhhjloXC3RPKp QARjhG09kINrTAbqQm5p n0P8o288VOMwKHTxiW61 Ng3soXomVDWpnTIO nD0ugpufu0fmmcjdHpTk HTLdNIv4DPs6EAYsgPbl PxWaLBB7GgV3BGM5sPGd pZ0mzFrcnfkszE5a Oyc+J99msP8cTGP9QEO6 jzsdATSrgfWhBU32FS31 B4MdYhnvlJJymXZ+PGRp wuBiwNdaRK9kSwHd z0hwt0DnONujI3TpSREv RSngUsa5PFLzGDC7fUM5 fI0aIATxDAakb1D6hQB0 W0PctsAlyu6wy1oh FHMwZVrzM60ckTJye2B4 IMEdtSN4EQIeuUdqIoVe qD01Etq+ELLoeCwik1Sk Axxlu9neb4zreFe7 IjMwJSIgdmFsaWduPSJ0 n0OrLs50I51yTWavZYQn SIXiRCSbSBZbtGfppt1u mP0uLs7+PGNvbCB3 bOV0dR3lULOePrH1KHak A572UaArxODtSlmtt5mm e3upxBb5EoTwMZRjyqXr sMeuMJM8n0GmWc29 X99dTEcvJEZkVWVkYFSj ONHdeHunoo8qsO9wZu5+ XY4zw4utxs10rD06qUE+ TNGcWDW0uWqeEVxb FWWhbI5sPJooYcB2TAGx XpNnnK79wIQkNPpiAf2a yUnasCcqQB9vMUElhqnz d852DtIpd5nwGPCm xSZsGKegHSE6G12da7E5 AAGiHHOpYJX2eMI7aW2h bGlnbjogbGVmdDsgdmVy eYesWNnzRNryD565 IHRvcDsnPlBhdGllbnQg ZwVrKOx3T9HfNir4PNJk pPdhUJ9liYYuNDfgGz0c aSndbPupSZ7hFUFa bwtms694HeMga6ezONMj tBSbAVxlHWE7X17gn2U4 XNCiDXNkYKM9yQI4rL6l bGlnbjogbGVmdDsg bfRjeXufYXpjLUcmV611 IHRvcDsnPkJpcnRoIERh sTM2GQ21FB54rGLcm3B2 dNR3E7EoIRHhyczz bpsikEL8XVVzIBVtpU98 Wr1rtAskIc6oRFCaAHS0 ZLXmhAHuT6YquJ7hKkWj LPArTPJvE1XqtHGe TGysX524PMqnMwP6XVNe wfNbH1FdONDxgWxwZbZ2 x9M6Pg5TO0P0XI34QV55 oDEal5G7vOS3J3Qk RKXztrexeijyeFI5GZGs SGUfhF20Mw4yvKjwCu7u GZZaOIC8XDDecGEbR8Mc dO8hMlPnOFPyYOIi R9LrmMXwQBjkG777MVjy XjX9EAWjhdTaI1AgTJGg wPwmTsM3i3M4Ef9FNUm4 HL30ZS12ePKlb3N2 gIT2E8UaZGSyqunpjkfv pJY5IGWeBDSwcQ77Xh7f gCliOs7tTRVaUTH8LCWm kZKvW0JuyP6gIjLl WAMcZGOmE6KovZAxJKtl D182SFtsTbJ5WRWokfQl P0ZrGBZjzZaoBsI2l3G5 Mo6BSCVqSF42SJV2 xHQ7AO24YD93V5KxIkyv dGFibGU+PHRhYmxlIHdp ZHRoPScxMDAlJyBzdHls WL8zOq0rVETuLFIj qCnodSJhYbBlx0qhKOFs SBvuLU3zgEynD0JukAD1 QSWrz7k1Dv93M21iA1Sp dXA+AZGwcQT9eNU4 kR9yMkXzUiU7SGmkX778 OuEwzXTkCfvch4pbj5fd jHn8VaX6BAOpxbJjnItc EIG0h4GaSg56F15v IHdpZHRoPSIxNSUiIHZh fLfkvj0deT7dCf7+PGNv gFQ1sGJ5nG6gSmZwVxD0 VVjeD740AtIshBTa Ctbfx9mvv6cueSq2GgKa RBYwglVwhIqkENI5i2Rk Kt90N2OitUmkv4ByKkk4 xo99tHQmv3G3zAN4 G1QtKPTvmdbewQXixZkz LQ7wGBXuvuujGWYngA4x QKBsN1d2PkHySeD3BOve B5PcvpC7ZRWknNFj ANxlWIJ4M94dz4O8PCKg ZUBfMNE9qBL9uC3zkGfr bjogbGVmdDsgdmVydGlj GGwzJFvaL642UUDv jCwbWXWolV5nFBXlzEBp vBirLH0hAFZjcwfpLr1I RH6iNIJSY0YTLN66UE78 jXVmj4M6aSE7C7Ok NELdxuihvdpmiCW6HUJf QEXsqS32nMHlRQvdKm2e a2E2h109LDChKDEswN02 Rs7jdGphUFHxgEPB dA7cflywx9qpygiyQsBy KJUlKVw1UWg5EXIqkEeb OxGiLYI8PdA5ARP5cVCd bC0upXuywvpdcX7l Oyc+NBwmMPyyXXx2AUel dGQ+VICzFSU5zVcvOFbw YQDseQ9fGCWfL3f5RgEg SuN6CQrpU2QsNZIu fgjhKe25cD1eTnOuWnW0 JHvsH0QsbqO2OSFnwULn XZytFKQ8W44ss1J7XPUs QKNwTWY1rSC5aX6i bGlnbjogbGVmdDsgdmVy hYmgKVbcFFanL801KSHo yGijStH8TWuqXMHkDH54 UK81pZSqv3I0iLX7 W6IzKNPtxekdwhyrdNW9 IMSlUNLqnS38pRHuOBch Vf2lc3G5c898SXTjLQHf nT33Nk9zrZjvKKFz wYQTbO3gfbhzf1ewjjvx AuYmEAWzJGu0IZb7HVJw lFtzKtUmKMM5AyP9DSV5 tZVocA9geUevrmkm pR9iZgp+TWFsZTwvdGQ+ GSUePOA8qYtbGAgnQDDk wR5wMPPuH2s9KyQxVmC7 IYsdZ0NmHBHqwtjq Vi87pQ0xSiWpEmQ0JZel D2IxkkA4OUKkoFKuKGry XTV6F40xa6D7AWQmAEWd EGO2sHA3rB1yfJll bjogbGVmdDsgdmVydGlj ZXpeSKpjC947TIXakPsk NsfrOcPZzy3oPN8oFzfo dGQ+QD15vh55D0Hb CnuuVsk8CIXwMHL1rJC9 cM6oEJPaKWnjc9A7xEL3 O2OwkvBbhs8yw8fwPENn ZTkyM16djAXfj6B1 LQPzaEF7PMJngXppEvWu fK81Oip+ETPtcTlsm5Xl Lwnez6awa7tjvKo2VzHv JSIgdmFsaWduPSJ0 r9RpXv89B22oSSgzCMHu OFKyYVAaJGAqnPuvmn6z vJ6mUe7+NXYbuBI8nWY6 iJ5tZaWzRwW4CAhf W877VuRjdHBhHztla2mz q8wfkCj4ZrHeJCTrtdPw hJpxGEN6e6VaYe58L8Gh sNdsx7CtVjo6la63 nYNjj4B2dRG1G9KzBFVv miaqsDUxwWbgDV8eEHZv gzvjPZOzlD3dQVNsL0n3 KlBsJxA3PPpjT6Jp ggH7EPJscNAbVPOygIHV tI8rxduof6kbikbbSyQw SCYdUDa5KHn9LJZjyFde ErDrSKD6VvO6RYH3 lVVwuW9zxTugdvlhnF6k Oyc+INi2p7nutRDaUY8x eST2MQ59BW14lTPmc2R4 aOQ1R8OhSOEhphhy vjkicVT5DTInDCBtmE49 Cu4jcIutKn6mBFQtGWR5 SGNalJVcP8UrlA6lKcBu SDFpEULoE3QzhWJu FDzrS675AVzlQzR0PMIc ioYvC8FaVJAegBhwGwZ5 a0C0Rx2WGK32AU22VL94 yQEdf3Y4dIK3J8Ag ZSUqjerexkjhfJV6CMZe OCCnrN75Eb9cuXueIh1d WCRtUOM9JRYtrLAoN7Tm nK3xOpAjOHJoMMPj U2WlhASiLSflV516KVac OkB0DHEhohByA4MbXMQe rCdjOfH4v5B7Ck4JQq28 YQ65LJ48aXBhj7B8 lKX7Q0BvYYYtxwioiivd pLN3SCRqQKFwhT09Il2q gQusAf6aFNZuRFV2OIHp mVIlV7YiiM9cZfHs HVCcRMIeU3CjhYDvAGiv B764LJfdUfL3KDNllgJh W1IdPXHbmQapDxY1o0E9 Qx9EBHelwiu3J9Bq PjwvdHI+JR32FXYgRX77 cWCumAOpy0eoqYf7SrGx LJZkLTV9wZluIHnuu9El VMUmS05kdRFwd9O6 IGNv (more content not included)... Normal [facility] Outside Colonoscopyon 2021 Outside Colonoscopy [id number] #[id number]:127 [facility] Physician Orderon 01-28-2022 Physician Order [id number]#1.00CD:127 [facility] Consent for Procedure/Surger yon 01-15-2022 Consent for Procedure/Surgery [id number]#1.00CD:127 [facility] Ambulatory Visit Summaryon 0 01-14-2022 Ambulatory Visit Summary ERICK FRAN :1965 Visit Date:01/14/2022 Ambulatory Visit Instructions Your [...] PHYSICIAN INSTRUCTIONS. PRIOR TO COLONOSCOPY. [facility] Unchanged aspirin Contact prescribing physician if [...] physician if questions or concerns Pharmacy Information [facility] [address]: [address] [place], [place] [phone] Medications and Immunizations Administered Not Given influenza [...] including vitamins, herbs, eye drops, creams, and nxyk-pwv-kuiewoy medicines. ? Any problems you or family [...] loose stools (more content not included)... Normal [facility] Gastroenterology Office/Clin ic Noteon 01-14-2022 Gastroenterology Office/Clinic Note Chief Complaint ref by Scott- screening HPI Staff This is a 56 [...] E&M of New Patient Low 30-44 Min 80423 2. Family history of polyps in the colon (Z83.71: Family history of colonic polyps) Same as above plan of care. See #1. Ordered: Colonoscopy (Hospital Procedure) E&M of New Patient Low 30-44 Min 15091 Orders: polyethylene glycol 3350 with electrolytes, See [...] Not Given Parent Or Guardian Refuses Normal [facility] Comment on above: Result Comment: Elec tronically [...] including vitamins, herbs, eye drops, creams, and xyws-pip-bzbmcyv medicines. ? Any problems you or family [...] air t (more content not included)... Normal [facility] Pre-Authorization for Medica l Treatmenton 01-14-2022 Pre-Authorization for Medical Treatment [id number]# 1.00CD:127 Normal [facility] Physician Referralon 022 Physician Referral [id number] #1.00CD:127 Normal [facility] Glycohemoglobin (HGB A1C) Román fentonvon 01-26-2019 Hemoglobin A1c/Hemoglobin.total mass fraction (Bld) 5.3 % Normal [facility] Comment on above: Result Comment: Bernice kamara range: < 5.6 Unit: % HGB (NOTE) [...] Calcium mass conc 8.7 mg/dL Normal 8.5-10.6 [facility] Chloride molar conc 107 mmol/L Normal 98-107 [facility] CO2 molar conc 28 mmol/L Normal 21-32 [facility] Creatinine mass conc 0.97 mg/dL Normal 0.70-1.30 [facility] Glucose mass conc 129 mg/dL High 74-106 [facility] Potassium molar conc 4.1 mmol/L Normal 3.5-5.[facility] Sodium molar conc 144 mmol/L Normal 136-145 [facility] Urea nitrogen mass conc (BldV) 13 mg/dL Normal 7-18 [facility] Urea nitrogen/Creatinine mass ratio 13 mg/mg Normal [facility] CBC with Differentialon Basophils #/vol (Bld) 0.0 thou/mcL Normal 0.0-0.2 M [facility] Basophils/100 WBC (Bld) 0.4 % Normal 0-3 [facility] Differential cell count method Nom (Bld) AUTOMATED DIFFERENTIAL Normal [facility] Eosinophils #/vol (Bld) 0.1 thou/mcL Normal 0.0-0.4 [facility] Eosinophils/100 WBC (Bld) 2.1 % Normal 0-7 [facility] Erythrocyte distribution width Entitic volume (RBC) 13.9 % Normal 11.7-15.0 [facility] Hematocrit Volume Fraction (Bld) 41.3 % Normal 34.0-50.0 [facility] Hemoglobin mass conc (Bld) 13.5 g/dL Normal 11.5-17.0 [facility] Lymphocytes #/vol (Bld) 1.2 thou/mcL Normal 0.7-4.5 [facility] Lymphocytes/100 WBC (Bld) 25.2 % Normal 14-46 [facility] MCH Entitic mass (RBC) 28.5 Picograms Normal 27.0-34.0 [facility] MCHC mass conc (RBC) 32.8 g/dL Normal 32.0-36.0 [facility] MCV Entitic volume (RBC) 87.0 fL Normal 80-98 [facility] Monocytes #/vol (Bld) 0.2 thou/mcL Normal 0.1-1.0 M [facility] Monocytes/100 WBC (Bld) 5.2 % Normal 4-13 [facility] Neutrophils #/vol (Bld) 3.2 thou/mcL Normal 1.5-7.8 [facility] Neutrophils/100 WBC (Bld) 67.1 % Normal 40-74 [facility] Platelet mean volume Entitic volume (Bld) 9.1 fL Normal 7.5-11.2 [facility] Platelets #/vol (Bld) 253 thou/mcL Normal 140-415 [facility] RBC #/vol (Bld) 4.74 x(10)6/mcL Normal 3.80-5.60 [facility] WBC #/vol (Bld) 4.8 thou/mcL Normal 4.0-10.5 [facility] Partial Thromboplastin Time (aPTT)on 01-25-2019 aPTT Coag time (PPP) 33 Sec Normal 24.4-37.5 [facility] Prothrombin Timeon 9 INR Coag RelTime (Bld) 1.0 {INR} Normal 0.8-1.2 [facility] Comment on above: Result Comment: CATARINA MORIN THE INDUCTION PHASE OF ORAL ANTICOAGULATION, THE INR MAY NOT REFLECT THE ANTICOAGULANT STATUS OF THE PATIENT. THERAPEUTIC RANGES FOR INR'S ARE: MOST CLINICAL SITUATIONS: INR 2.0-3.0 MECHANICAL PROSTHETIC VALVES: INR 2.5-3.5 CRITICAL: INR 5.0 Prothrombin time (PT) Coag time (PPP) 10.9 Sec Normal 9.4-12.5 [facility] Vital Signs Date Time Vital Sign Value Performing Clinician Facility 04-22-2024 14:06-0400 Body height 175.26 cm [facility] 04-22-2024 14:06-0400 Body mass index (BMI) [Ratio] 24.7 kg/m2 [facility] 04-22-2024 14:06-0400 Body weight 76.2 kg [facility] 04-22-2024 14:06-0400 Diastolic blood pressure 84 mm[Hg] [facility] 04-22-2024 14:06-0400 Heart rate 83 /min [facility] 04-22-2024 14:06-0400 Respiratory rate 12 /min [facility] 04-22-2024 14:06-0400 Systolic blood pressure 125 mm[Hg] [facility] 02-26-2024 10:26-0400 Body height 175.26 cm [facility] 02-26-2024 10:26-0400 Body mass index (BMI) [Ratio] 24.2 kg/m2 [facility] 02-26-2024 10:26-0400 Body weight 74.44 kg [facility] 02-26-2024 10:26-0400 Diastolic blood pressure 93 mm[Hg] [facility] 02-26-2024 10:26-0400 Heart rate 73 /min [facility] 02-26-2024 10:26-0400 Respiratory rate 12 /min [facility] 02-26-2024 10:26-0400 Systolic blood pressure 143 mm[Hg] [facility] 12-22-2023 10:45-0500 Body height 175.26 cm Sean Ball Other [facility] 12-22-2023 10:45-0500 Body mass index (BMI) [Ratio] 24.51 kg/m2 Sean Ball Other [employer] Other 12-22-2023 10:45-0500 Body weight 75.3 kg Sean Ball Other [facility] [employer] Other 12-22-2023 10:45-0500 Body weight 75.29 kg [facility] 12-22-2023 10:45-0500 Diastolic blood pressure 80 mm[Hg] Sean Ball Other [facility] 12-22-2023 10:45-0500 Respiratory rate 12 /min Sean Ball Other [facility] [employer] Other 12-22-2023 10:45-0500 Systolic blood pressure 130 mm[Hg] Sean Ball Other [facility] 08-31-2023 09:30-0400 Body height 175.26 cm Sean Ball Other [employer] Other 08-31-2023 09:30-0400 Body mass index (BMI) [Ratio] 22.21 kg/m2 Sean Ball Other [employer] Other 08-31-2023 09:30-0400 Body weight 68.22 kg Sean Ball Other [employer] Other 08-31-2023 09:30-0400 Diastolic blood pressure 79 mm[Hg] Sean Ball Other [employer] Other 08-31-2023 09:30-0400 Respiratory rate 12 /min Sean Ball Other [employer] Other 08-31-2023 09:30-0400 Systolic blood pressure 120 mm[Hg] Sean Ball Other [employer] Other 12-15-2022 15:45-0500 Body height 175.26 cm Sean Ball Other [employer] Other 12-15-2022 15:45-0500 Body mass index (BMI) [Ratio] 25.25 kg/m2 Sean Ball Other [employer] Other 12-15-2022 15:45-0500 Body weight 77.57 kg Sean Ball Other [employer] Other 12-15-2022 15:45-0500 Diastolic blood pressure 76 mm[Hg] Sean Ball Other [employer] Other 12-15-2022 15:45-0500 Respiratory rate 12 /min Sean Ball Other [employer] Other 12-15-2022 15:45-0500 Systolic blood pressure 122 mm[Hg] Sean Ball Other [employer] Other 11-28-2022 15:45-0500 Body height 175.26 cm Sean Ball Other [employer] Other 11-28-2022 15:45-0500 Body mass index (BMI) [Ratio] 24.98 kg/m2 Sean Ball Other [employer] Other 11-28-2022 15:45-0500 Body weight 76.75 kg Sean Ball Other [employer] Other 11-28-2022 15:45-0500 Diastolic blood pressure 78 mm[Hg] Sean Ball Other [employer] Other 11-28-2022 15:45-0500 Respiratory rate 12 /min Sean Ball Other [employer] Other 11-28-2022 15:45-0500 Systolic blood pressure 122 mm[Hg] Sean Ball Other [employer] Other 02-12-2022 14:50-0400 Blood Pressure Location Esme Lopez [facility] 02-12-2022 14:50-0400 Diastolic blood pressure 84 mm[Hg] Esme Fishermetz [facility] 02-12-2022 14:50-0400 Heart rate 66 /min Esme Lopez [facility] 02-12-2022 14:50-0400 Respiratory rate 16 /min Esme Lopez [facility] 02-12-2022 14:50-0400 Systolic blood pressure 118 mm[Hg] Esme Lopez [facility] Encounters Encounter Date Encounter Type Care Provider Facility Start: 04-22-2024 End: 04-22-2024 ambulatory [facility] Work Phone: Start: 04-22-2024 End: 04-22-2024 Patient encounter procedure [facility] Work Phone: Start: 03-15-2024 End: 03-16-2024 ambulatory CESAR MARCH Not Available Start: 02-26-2024 End: 02-26-2024 ambulatory [facility] Work Phone: Start: 02-26-2024 End: 02-26-2024 Patient encounter procedure [facility] Work Phone: Start: 01-04-2024 End: 01-04-2024 ambulatory Sean Garcia Other [employer] Other Start: 01-04-2024 Telephone encounter Sean Garcia [facility] Start: 01-01-2024 End: 01-02-2024 ambulatory SEAN GARCIA Not Available Start: 12-24-2023 End: 12-24-2023 ambulatory Sean Garcia Other [employer] Other Start: 12-24-2023 Telephone encounter Sean Garcia [facility] Start: 12-22-2023 End: 12-22-2023 ambulatory Sean Garcia Other [employer] Other Start: 12-22-2023 Office outpatient visit 15 minutes Sean Garcia [facility] Start: 12-22-2023 End: 12-22-2023 Patient encounter procedure [facility] Start: 09-17-2023 End: 09-17-2023 ambulatory Sean Garcia Other [employer] Other Start: 09-17-2023 Telephone encounter Sean LOMBARDI [facility] Start: 09-07-2023 End: 09-07-2023 ambulatory Sean Garcia Other [employer] Other Start: 09-07-2023 Telephone encounter Sean Garcia [facility] Start: 08-31-2023 End: 08-31-2023 ambulatory Sean Garcia Other [employer] Other Start: 08-31-2023 Encounter for genera l adult medical examination without abnormal findings Sean Garcia [facility] Start: 08-31-2023 Periodic preventive med est patient 40-64yrs Sean Garcia [facility] Start: 07-18-2023 End: 07-18-2023 ambulatory Sean Garcia Other [employer] Other Start: 07-18-2023 Telephone encounter Sean LOMBARDI [facility] Start: 04-03-2023 End: 04-04-2023 ambulatory NARENDRANATH LAKSHMIPATHY . Facility: Start: 03-10-2023 End: 03-10-2023 ambulatory NARENDRANATH LAKSHMIPATHY . Facility:[facility] Start: 02-24-2023 End: 02-24-2023 ambulatory GABRIELAJESSE AUSTINMIFLEX . Facility:[facility] Start: 01-22-2023 End: 01-23-[address] AMPARO KULKARNI . Facility:[facility] Start: 01-07-2023 End: 01-07-2023 ambulatory Sean Garcia Other [employer] Other Start: 01-07-2023 Telephone encounter Sean LOMBARDI [facility] Start: 01-06-2023 End: 01-06-[address] AMPARO KULKARNI . Facility:[facility] Start: 12-25-2022 End: 12-26-[address] AMPARO KULKARNI . Facility:[facility] Start: 12-15-2022 End: 12-15-2022 ambulatory Sean Garcia Other [employer] Other Start: 12-15-2022 Office outpatient visit 15 minutes Sean Garcia [facility] Start: 12-15-2022 Telephone encounter Sean LOMBARDI [facility] Start: 12-02-2022 End: 12-02-[address] AMPARO KULKARNI . Facility:[facility] Start: 11-28-2022 End: 11-28-2022 ambulatory Sean Garcia Other [employer] Other Start: 11-28-2022 Office outpatient visit 15 minutes Sean Garcia [facility] Start: 11-28-2022 Telephone encounter Sean LOMBARDI [facility] Start: 08-05-2022 End: 08-06-[address] AMPARO KULKARNI . Facility:[facility] Start: 08-05-2022 End: 08-06-[address] AMPARO KULKARNI . Facility:[facility] Start: 02-12-2022 End: 02-12-2022 Patient encounter procedure Esme Lopez [facility] Start: 01-26-2019 End: 01-26-2019 Patient encounter procedure AV BUSTAMANTE Facility:[place] Procedures Date Procedure Procedure Detail Performing Clinician Start: 02-22-2016 General examination of patient Sean Garcia Other Plan of Treatment Date Care Activity Detail Author Start: 02-26-2024 Patient referral [facility] Work Phone: Patient referral [facility] Work Phone: Immunizations Immunization Date Immunization Notes Care Provider Robert curry 08-31-2023 influenza, injectable, quadrivalent, preservative free Sean Garcia Other [facility] 10-01-2020 influenza virus vaccine, split virus (incl. purified surface antigen) Sean Garcia Other [employer] Other 10-01-2020 influenza virus vaccine, unspecified formulation [facility] 01-05-2016 tetanus toxoid, reduced diphtheria toxoid, and acellular pertussis vaccine, adsorbed Sean Garcia Other [facility] 12-24-2015 diphtheria, tetanus toxoids and acellular pertussis vaccine, unspecified formulation Sean Jose Other [facility] 12-25-2011 diphtheria, tetanus toxoids and acellular pertussis vaccine, unspecified formulation Sean Garcia Other [facility] NEGATED: Highlighted row has not occurred!02-12-2022 influenza virus vaccine, unspecified formulation Esme Lopez [facility] NEGATED: Highlighted row has not occurred!01-14-2022 influenza virus vaccine, unspecified formulation Esme Lopez [facility] Payers Date Payer Category Payer Unknown [id number] 2.16.8 [id number] 1964 Unknown [id number] 2.16.84 [id number] 1964 Unknown [id number] 2.16.84 [id number] 1964 Unknown [id number] 2.16.84 [id number] 1964 Unknown [id number] 2.16.84 [id number] 1964 Unknown [id number] 2.16.84 [id number] 1964 Unknown [id number] 2.16.84 [id number] 1964 Unknown [id number] 2.16.84 [id number] 1964 Unknown [id number] 2.16.84 [id number] 1964 Unknown [id number] 2.16.84 [id number] 1964 Unknown [id number] 2.16.84 [id number] 1964 Unknown [id number] 2.16.84 [id number] 1960 [facility] Blue Shield [id number] 1960 Private Health Insurance [id number] Self-pay Self Pay [id number] Unknown [facility] [id number] Social History Date Type Detail Facility Start: 02-12-2022 End: 12-22-2023 Tobacco smoking status Never smoked tobacco (finding) [facility] Sex Assigned At Male [facility] Start: 1965 Sex Assigned At Male [facility] Clinical Notes 02-12-2022 to 12-24-2023 Note Date & Type Note Facility 12-24-2023 Evaluation note Encounter Date Diagnosis Assessment Notes Dec, Nocturnal headaches (ICD-10 - R51.9) [employer] Other 01-30-2024 Evaluation note* Encounter Date Diagnosis [...] to go to ER for suspicious symptoms [employer] Other 10-09-2023 Evaluation note* Encounter Date Diagnosis [...] (ICD-10 - Z12.5) Yearly JAN and PSA [employer] Other 03-02-2023 NoteCONSULTATION CONSULTATION DATE: 01/22/2023 HISTORY: [...] q.h.s. Patient does agree with this plan.[id number] Note CONSULTATION CONSULTATION DATE: 12/25/2022 HISTORY OF [...] be followed up in the clinic thereafter.[id number] Evaluation note* Encounter Date Diagnosis Assessment Notes Treatment Notes Treatment Clinical Notes Nov, Acute salpingitis of right eustachian tube (ICD-10 - H68.011) Yawn, chew gum, sudafed as well as prescribed medication Nov, Non-recurrent acute serous otitis media of right ear (ICD-10 - H65.01) Initiate antibiotics [employer] Other 01-06-2023 Evaluation note* Encounter Date Diagnosis [...] (ICD-10 - N52.01) Sildenafil tolerated and beneficial. [employer] Other 09-13-2022 NoteCONSULTATION CONSULTATION DATE: 08/05/2022 CHIEF [...] would like to progress. CC: Sean Garcia D.O.[facility]03-23-2022 Hospital Discharge instructions Patient Education 02/12/2022 15:17:19 [...] 08/05/2005 Document Revised: 02/24/2019 Document Reviewed: 02/24/2019 [employer] Patient Education 2020 [employer]. Follow Up Care 01/29/2022 13:30:30 With:Esme Lopez CNP Address: When:1 year only if needed [facility] Evaluation + Plan note No data available for this section [facility] Evaluation noteNo InformationNort Galavantier Other Evaluation noteNo assessment information available [facility] Work Phone: Evaluation note* Diagnosis Onset Date Resolution Status Cervical spondylosis acute Hypnic headache acute [facility] Work Phone: Hisqsnu general Narrative - Reported* Type Description Date [...] right thumb Hospitalization History see surgical history [employer] Other Hisalqn general Narrative - Reported* Type Description Date [...] Colonoscopy 04/2021 Hospitalization History see surgical history [employer] Other Hislwbg general Narrative - Reported* Type Description Date [...] years) 01/2022 Hospitalization History see surgical history [employer] Other Reason for referral (narrative)* Reason 03/18/23 Referral for plugged right ear Diagnosis 1 Acute salpingitis of right eustachian tube (H68.011) Referral Organization [facility] Referring Provider First Name Sean Referring Provider Last Name Jose Referring Provider Specialty Internal Me dicine Referred Organization [facility] Referred Provider MaryAmie Referred Address ,[place], [place],[address] Referred Provider Specialty Ear, Nose an d [...] being referred for further evaluation and treatment. [employer] Other Summary Purpose Family History Relationship Condition Age at Onset Recorded Date/T leesa Not Specified Diabetes mellitus Unknown Advance Directives Advance Directive Response Recorded Date/ Time Advance Directives No September 11, 2017 1:10pm Chief Complaint and Reason for Visit Chief Complaint Headaches Headaches Chief Complaint Headaches 1 month check up Reason for Visit Cervical spondylosis Hypnic headache Additional Source Comments (unrecognized sect ion and content) No Status Records FoundNo Status Records FoundNo Status Records FoundNo Status Records Found INFORMATION SOURCE (unrecogn ized section and content) DATE CREATED AUTHOR 01/28/2019 [facility] DATE CREATED AUTHOR AUTHOR'S ORGANIZ ATION [facility]20[facility] DATE CREATED AUTHOR AUTHOR'S ORGANIZ ATION 04/04/2023 [facility] DATE CREATED AUTHOR AUTHOR'S ORGANIZ ATION 03/20/[address] [facility] d[facility] Specialists EPIC REASON FOR VISIT (unrecogniz ed section and content) Wants in office todayEarache Wants in TodayEarsNo InformationEar ProblemsNo InformationWellnessNo InformationNo InformationLab resultsorderMRIHeadaches Care Teams (unrecognized sec tion and content) Team Status: Active Member Role Status Dates Sean Garcia , DO Primary Care Provider Active Team Status: Inactive Member Role Status Dates Sean Garcia , Attending Provider Active Sta rt: December 22, 2023 End: December 22, 2023 Team Status: Inactive Member Role Status Dates Sean Garcia , DO Primary Care Provide r, Attending Provider Active Start: February 26, 2024 End: February 26, 2024 Team Status: Inactive Member Role Status Dates Sean Garcia , DO Primary Care Provide r, Attending Provider Active Start: April 22, 2024 End: April 22, 2024 Goals (unrecognized section and content) Goals [...] BE BASED ON THE PRIMARY CLINICAL RECORDS. [employer] [facility]. provides no warranty or guarantee of the accuracy or completeness of information in this document.
--- NOTE | 2024-06-23 10:21 | PM.CN ---
Consult Note: HPI Data of Consult Patient: known to practice within the last 3 years Requesting Physician: Radha Cordova NP Primary Care Provider: Sean Garcia DO Consult Narrative Reason for consult: f/u Narrative: Fran Lundy a pleasant 58 year old male presents for evaluation and management of back pain. Patient has a hx of multilevel thoracic pain that has responded well to facet joint RFAs in the past, most recently patient underwent right and left T3/4 T4/5 facet RFA, in the past right and left T7,8 T7,9 facet RFAs. Patient reporting pain throughout thoracic spine. patients pain today 5/10 aching pain. Patient found significant benefit to steroid pack he was on previously for right elbow pain. Patient has been utilizing ibuprofen 400mg PRN without improvement, mild improvement from baclofen 10mg HS. Patient noticing more difficulty sleeping. Recent thoracic MRI unremarkable. cc:: CC: Radha Cordova NP [facility] Surgical History S/P total hip arthroplasty ?Z96.649 - Presence of unspecified artificial hip joint (ICD-10) Meds Home Medications and Allergies Home Medications ?Medication ?Instructions ?Recorded ?Confirmed ?Type aspirin 81 mg capsule 81 mg PO DAILY 04/28/23 08/11/23 History baclofen 10 mg tablet 10 mg PO .hs 04/28/23 03/02/24 History calcium carbonate (Calcium 600) 600 mg PO BID 04/28/23 08/11/23 History glucosamine RAt-F3-Oxkzcfodz 1 tab PO DAILY 04/28/23 08/11/23 History roxanna 1,500 mg-400 unit-100 mg tablet (Osteo Bi-Flex (5-Loxin)) multivitamin 1 tab PO DAILY 04/28/23 08/11/23 History omega-3 fatty acids-fish oil 360 1 cap PO DAILY 04/28/23 08/11/23 History mg-1,200 mg capsule (Fish Oil) testosterone cypionate .ROUTE .every 2 weeks 04/28/23 History vitamins-lipotropics tablet 1 tab PO DAILY 04/28/23 08/11/23 History etodolac 500 mg tablet 500 mg PO Q12H PRN pain 03/02/24 03/02/24 History Allergies Allergy/AdvReac Type Severity Reaction Status Date / Time No Known Drug Allergies Allergy Verified 08/11/23 13:13 Exam Constitutional Documenting provider has reviewed patient's vital signs: yes Common normals: no apparent distress, oriented x3, healthy appearing, alert and well nourished General appearance: cooperative HENMT Common normals: normocephalic, hearing grossly normal bilaterally and moist oral mucous membranes Head and scalp: normocephalic Eye Common normals: PERRL Pupil: PERRL Neck & C-Spine Common normals: full ROM General: normal visual inspection Chest Common normals: inspection of chest normal Respiratory Common normals: normal respiratory effort, no retractions and no use of accessory muscles Back & Pelvis Thoracic spine/upper back: normal to inspection, thoracic ROM normal, pain with ROM, paraspinal muscle tenderness and paraspinal muscle spasm Lumbar spine/lower back: normal to inspection and lumbar ROM normal Other: facet pain as noted below in T7-10 areas, increase in bilateral parathoracic myofascial tenderness and spasms. intermittent increase in myofascial pain over bilateral scapulae Back image (male): 1. facet tenderness 2. facet tenderness 3. 4. Extremity Common normals: normal to inspection and full ROM Neuro Common normals: oriented x3, CN's II-XII intact bilaterally, moves all extremities, no focal motor deficits, no sensory deficits noted, deep tendon reflexes 2+ bilaterally and gait normal Sensorium/orientation: alert Motor exam: strength 5/5 throughout and no movement abnormalities noted Psych Common normals: mental status grossly normal, thought process normal, cooperative, affect normal, speech normal and activity/motor behavior normal Speech: normal speech Thought process: normal thought process Assessment and Plan Assessment and Plan (1) Thoracic spondylosis: (2) Muscle spasm: (3) Thoracic radiculopathy: Assessment and Plan: improved Plan bilateral parathoracic TPI with Dr Salvador increase baclofen 15mg HS encouraged ice/tens and stretching f/u with Dr Salvador for TPI and assessment
== END 2024-06-23 09:51 | disposition home or self-care (01) ==
LOC: PM 09:50
PROVIDERS: PCP Internal Medicine; Visit Provider Nurse Practitioner
DX: M47.814 Spondylosis without myelopathy or radiculopathy, thoracic region (principal); M62.838 Other muscle spasm; M54.14 Radiculopathy, thoracic region
CPT/HCPCS: G0463

== ENCOUNTER 2024-06-28 12:46 | Outpatient (OUT) | payer BC, SELFPAY ==
--- NOTE | 2024-06-28 | CONS_ITS ---
PROCEDURE DATE: 06/28/2024 PROCEDURE: Bilateral thoracic iliocostalis trigger point injection at the T7 and T8 levels. PREOPERATIVE DIAGNOSIS: Pain secondary to myalgia/myofascial spasm of the thoracic iliocostalis muscle. POSTOPERATIVE DIAGNOSIS: Pain secondary to myalgia/myofascial spasm of the thoracic iliocostalis muscle. SOLUTION USED FOR INJECTION: 2 mL of 2% lidocaine, 2 mL of 0.25% Marcaine and 22 mg of Kenalog, total of 5 mL, and 2 mL used for the injection at each side. IMMEDIATE COMPLICATION: None. PROCEDURE: After informed consent was obtained from the patient, placed in the sitting, kyphotic position. Skin overlying the area was prepped with alcohol. A 25 gauge, 1 ?? needle inserted over the thoracic iliocostalis muscle on the right side, approximately 2 cm from midline at the T7 level. Needle tip advanced until it was encountered. We injected 1 mL of solution. Repeated again at the T8 level on the right side, and repeated on the contralateral side at T7 and T8 level into the thoracic iliocostalis muscle. No indication of intravascular or intraneural or intrapleural needle tip placement or injection. Tolerated the procedure without complication. Reports a marked reduction in post procedural pain level. BRENDOND
--- OUTSIDE RECORDS SUMMARY | 2024-06-28 13:09 | XMS_ITS | CCD ---
Author Organization [facility] CliniSyfl Care Team Providers Care Jewel Bearing Grinder Name Role Phone AV BUSTAMANTE Attending Unavailable [...] or physicia Propensity to adverse reactions Comment:Done [employer] Other Medications Current Medications Medication Drug Class(es) [...] / neomycin 3.5 mg/ml / polymyxin b 88708 unt/ml otic suspension (14 sources) Aminoglycoside Antibacterial, Polymyxin-class Antibacterial, Corticosteroid Neomycin-Polymyxin -HC 3.5-63516-3 4 drops Otic Three times a day for 7 days Not-Taking/PRN lisinopril 5 mg oral tablet (2 sources) Angiotensin Converting Enzyme Inhibitor Start: 09-12-2017 End: 10-12-2017 take 5 mg by mouth once daily Lisinopril Discontinued 5 MG PO Daily September 12, 2017 12:00am October 12, 2017 1:03am Wpcunljxacax-Afup-Kx lic Acid (Centrum) 18-400 mg-mcg Tablet (2 sources) Start: 09-11-2017 End: 02-25-2024 take 1 tablet by mouth once daily Multivitamin-Iron- Folic Acid (Centrum) 18-400 mg-mcg Tablet Discontinued 1 TAB PO Daily September 11, 2017 12:00am February 25, 2024 10:26am [place] 4-Bxz-Ejj-Fish Oil (Fish Oil) 900-1,400 mg Capsule,Delayed Release(Dr/Ec) (2 sources) Start: 09-11-2017 End: 02-25-2024 [place] 8-Xnq-Qce-Fish Oil (Fish Oil) 900-1,400 mg Capsule,Delayed Release(Dr/Ec) [...] by: NINA SOLIS Date: 2022-08-07 15:39 Normal [facility] Reminderson 04-08-2022 Reminders - From: Justin Larry To: [facility] - Reminders/Recalls; Sent: 04/08/2022 18:13:16 EDT Show up: 12/24/2026 18:13:00 EST Subject: Ambulatory Reminder - 5 year colon recall Due Date/Time: 01/28/2027 18:13:00 EST Reminder/Recall Repeat colonoscopy in 5 years (2026) due to polyps Normal [facility] Ambulatory Visit Summaryon 0 3-23-2022 Ambulatory [...] colono (more content not included)... Normal [facility] Gastroenterology Office/Clin ic Noteon 02-12-2022 [...] Parent Or Guardian Refuses Normal [facility] Comment on above: Result Comment: Elec [...] 08/05/2005 Document Revised: 02/24/2019 Document Reviewed: 02/24/2019 [employer] Patient Education ? 2019 [employer]. [facility] Coding Summary.on 02-03-2022 Coding Summary. CD:[id number] Gh0bWw+PGhlYWQ+PE1FV KGsE61mqEEqbK2NB6uHL C4DNOEAJMGZFO4JCE5vm SG1BTbzJ7DahrXx MbvxnJSvFZ10IHt8WDR3 zIckXYvjnW4puOLoJ8u0 HmQuAC96jR70SVpjENTj FoG5BqStygykhPJm N0pcTlYdnXBiHdo+PHRh YmxlIHdpZHRoPScxMDAl TdGmyMqhSC1bPy7wFBHo LWNvbGxhcHNlOiBj a9qoLOQjJNobKA4ksRwk B0VqiTE8QHGpv2o1Ij00 dHI+WRKrOIY5pRixPMif i758WqZtv9jtGNW5 mWCiBPqyJLS6O15sw1I6 VMVaXCLySZV1zCR9mM7w cVjgfasoN6RocVMhNsV0 GBZ9jCBatV2teNnr nmffjI1fBiw+C05ZYZ5Q RXZABN1AYem5W1WzEhhe dHI+UM83AIWbEA88pAGr cEUja9vyvMw5MoEy RHPoQOF7oDawOOqud0Jm HQAsC61nePAho5I2YXMn zGeosLQiOzYzyJE8lC7p HGzffobfr5xzkuua Jixxr0psgi95pT95X43t NVyiAAMrLPD1ADUaJANn eOdodj8srB0aFw3+IDxj v8lxd1pqbPd2HmJz LTZkfxWqlFoxNVM0a6Zg Oq07F5WuoJhbu1KaRyl8 zg77iELiv7G7tEM1ASmj TAAhfC0fNJmbPxP5 OYObTuFjmW35nQSeUWbt Me7stFgvjAfuJG9iFOGq jqnhSJMvaL2vCCEdzPKt dJirXL4nNZGeyvph l961HrZpHBY2DRHlhGFf B5CuyV1rLpLhKYLgRKCv G0EfoOSnULlrW928TOjw NoP0UOPzkjWhR9Uq ROZfjFcrXvO7e5D3Gt0G c4HjrfdsFRA5QOfyLPWw NtP8NyNtBsY1Q1AnTmu0 ZFSqtEhoCK2bZ0Yc VIClyfvwaawfdES9AUQu ADRwxW56yAJrROalGk5y i5X9e232ZDUnSXOozP90 Bh7ojXdgPIDdmAAS mF1ldzdiq9tgehbzJrFh RZLiCPm8UTh8KTUpyAof VuUhXKC9VfD8LZP2dBUi kH1zbKcvmqdguJ1i Oyc+H80vfI6yMFB6WEA1 jlhzUPPhmvUcPY86MF29 M6AyQngxfQGdjYB+PGRp pzAoePwgYF2pBwAq f8kpn2CoKStuI3HkLOYp QIcrSwk0LJIlDLX9yAP8 tV3tJLLgENzye9F2lFP9 Y8GuamLfcl5gc6yf XEYgYAsoA50puNLfy3D3 BZNnxXZ9EUPgxQywQeKw zJ42Knp+RVBpoAjpx8Vl Yviqg6vxc3cxkDv7 IjMwJSIgdmFsaWduPSJ0 r9DnHd64R19cOKqiLOKj XMAbDQHxQBRxcTuzoj7h vF5iUz4+PGNvbCB3 mGG1mZ6oGUHdNsK7BPgm Y421WmXctGEqMehah6wr i1luqPo7OcLyHBSovsDu mIquBVD3c9ShMa99 V33kHLqdGWVgROVsCFWc AJNqrYugfn1vgO4fTa3+ NQ5rc6nskf70zT17nTO+ QYGxJXD5aDwcKDnp GZVhlD3sYPkfIeI6IGNx CnQzvZ43oNFwOSofPt4x jXgobRasOL8kSVFlfmxw n357GuScr1xlCOXp bVVsAEwuYIS9L59ae6Y1 GXPiRFVjHHA0bJT0gD3z bGlnbjogbGVmdDsgdmVy uTytTQweRQbaE356 IHRvcDsnPlBhdGllbnQg LsRpKEf4H5ReEnd4XNTt mLmdND4siGXqMXihXt7r sJfrrLhrRL8gAAFf gulfw534ExIrw8rlCQRs nJFwBHvmIIJ7Y24wm0Z2 COTyGMSpCKI2bOV3hY8d bGlnbjogbGVmdDsg fyPkcOjcYTgpYBlyB829 IHRvcDsnPkJpcnRoIERh iQB7OW66WE67uMEak8R1 xDK3E8YdXNMpzaly hsazpEJ9BEQfLAXkmH97 Vg1ctKwqHz1eDOBjJKR9 UPSnlWBmD9PdyH6cCuPh YCCdKWEvH0AhcJCj JBisE274IBzbZzH8VQYw xwZxU8AhJOLviKedSiT6 c5R8Vz8YU7T1LL03RL41 cRKci1A4rLU7L1Qe VGHsagepohqdvBG1PNUe LGZwbE38Cm8cdJixTu1u KASqRPQ8AYQmjBZaK0Fl fV9yRrIvTUIpQRYm N1DnwWGaXWisL287LYxt GeJ1GPOgkqCpX3WcZDFf sMvtOoG8e4M4Dq1OPEj2 ST47LD64vJVqd2O7 tOK5P2LhXEJxmoyrkuhk uVH7RWViDWKyrT48Xl6k rBodQs5wIRGhBGM3EFAo xOKmT8OhoA8cSkYk ZXTxXXXhI8OmaUGtQRqi W030KLhyZzD3OCYypyGt V1HxUWMpqIclOcR8o5F4 Ua3BEXEnUX50UHT7 fFP9DV70RI39G7MsEidn dGFibGU+PHRhYmxlIHdp ZHRoPScxMDAlJyBzdHls KW8pVo4pNWOuQQPx xAhqgDXiZwFla2gqGVKd ZUqfST3euXtzB6TwlHE4 MTHfe6k2Ek67E55gP2Ob dXA+QCFhoXW9oYY9 uT0oOlHeThH6JSeaP112 HjZgvGHcHzqsi5kte2at lBg3TzO2SRVshnXsuFil VIJ8e5PwTf95X80w IHdpZHRoPSIxNSUiIHZh kNolad5oiT9aOk8+PGNv bHD3qCL0fM1xErJmCmG2 DQhtE063YuInvPAe Bjwfc4nyj7vsnDz0HhWq OCFkzrEshApkSFD6p3Dc Ji24R5KlvRkdr0UnDii7 yz31mALlj8M9pIS8 P9FnYXRfhpjniXVirOof FW8oHYOcyzmvOATntO3g APZrE3j0JtChCgN5UCpj Q5OlzxC1DVYqvBFh KHvzMIE9V93sc7Z7VIGt SHWjALB2uVK3sA7vbFan bjogbGVmdDsgdmVydGlj LQlbMCuwX365KKYv pUbcZSYlfD9gJLAdcDFv vOydRL7nTLVukdcuAk3Z WF5kNGVIX0CDJB17YA97 kHKrl1M2iXC4H3Nc XOZwymosmvyuiJR9EVIm NZHtxP18nMNgQAefXq7k s5G8h873BLDyEWOztZ06 Ii9agHyzTTButUZP wQ9qdqnou8vnynvvHdXv NOSfEXl3NDp3ISWumDlh UsAlXVZ6OyU8UIY9nGMu xO5rxYubpirqmM0u Oyc+ABfoOZggKWt4KZeb dGQ+LYVrZTW1uDhpZFvr WRLgfO4jGECcJ9x8JiCt SaC7SFveW9JhJFIx cxxbKx66uQ0gQuItKdK9 XKynC1GdzfI3UACioOMn GNujTRY8L40st2T3XCTc EZKdKJC7hHQ3cF0x bGlnbjogbGVmdDsgdmVy nZdkCGhfSTvqW869MMLr lXorBmE0WLxsVTYjBZ98 HB80sRRtc4F4cND9 F5PhVLLfvleopbklwQM3 ZCTePSMnjV46jSNtBPur Zj7qh9C8c774XVYsHCRk rM84Yt1peNgpXAKn gQCZeJ6fpjdqv2paajgk SmPiEKXuAGj1IWq9UCRy cQmsNvTrNJX1WvH9GXX9 uCRkbA5bjPzcqewu fH3mRxg+TWFsZTwvdGQ+ ZRIwUQD0pNpkOJwoYJYc eN0qNYHzW2a1TbCkPmW5 SVomM5UeMWGszdtb Xi97pZ9nAlBqGvJ5YVdv B6QhxnI4HSSorGVmSXmf JJK0S95kt1F1WVYzHJXk TPA2tZV0jT6ukFyt bjogbGVmdDsgdmVydGlj VEfeFAyrI255LOZvuScm FiwlQwCRqj0nOH2aKxtb dGQ+CK66yl17P6Hi RktqYsc9PAHkJXI3kVV8 vT7iQZLqDLxed7G9oQZ5 B2WyfnGosc2ue0kuZLZy GVwmR46vkNObt2L1 TTRarEE8ISFauVksOiSa aM51Rft+NAHhwDauj0Ka Znqko8tjb8yuoOa7RuEn JSIgdmFsaWduPSJ0 a5MsGh36Q73zHJlyEDQk MXDcLHZzTLYsnSurbw6k wZ0jRt0+GRMfjQF4tJE8 mM4cHiSfLvT5XSuy T770UrHsdNRwIjpnu1of z9udqWv2JyLdPFWwbuJq eHksEXO3y5QzSa22V7St aMvel4EvCyc2ih83 kGYix4X5yFV6H5NnCGDr ipvgjTWdcZvwVZ5qWFHg ugavFVOmnL7sTYAuQ1v8 FrHsPzW6DSkeM4Ye ltS5WFQzbHPbUSKtmJSV nR5wjwqzm9zviptaSoBz ARVoRKm6AGs5UKSjwYct OxBqRXJ8ZhW3TPT9 vXNfkU5sbSascthavI6x Oyc+CRz4v0nluLYzKM1m cXB7FO36DT38hIGip6S6 wJC8X8UyKKQumquo mbmebGH4NSOiLBLqeX12 If2fqJebIn1sEFZaXZM8 JHOpfIXhG5ZfeJ4cWuNr QHTxASZiZ9OxrLBp EUaaE641GFrzIiZ8GZFb zdAuU9KiRLQdsIkeYoD8 n9C2Ga0TOJ35CK15UB24 gSSgf2W7tQM8E9Mv BPZsigwxkarvaCJ2ZWLp XWBjaO77Aj5epLasSj1a GOQgXHE6XJRytLQsR7Ws cD2nCkAqJUHbQJOg E7KfgNHzUBgoL492SGye LeI7RCRswqLmJ4ZxVGFj zAfpOvU1y7J0Nu0VBb38 XI90FT15rDPmo6K8 sSE9A3NzZFUaoedbjdja yEK0EOJkZSCfsA95Xb2j gLpaSx8zHQCzMVN0VGGp xWHnX9TusR7sIuKc STBcPRSmX4FsjVPxBHei G982VYxiXhL2GHXeahDr E1MgIWJmfIcnFoK6d1O0 Gd0AOUcacxe2B9Wl PjwvdHI+EM18ZDFlKQ21 kLIxhACfq3dauPq7GtWt ATDjWWL3cLfyEOkco2Bt ENVfE26wbHKau6M7 IGNv (more content not included)... Normal [facility] Outside Colonoscopyon 2021 Outside Colonoscopy [id number] #2.00CD:127 [facility] Physician Orderon 01-28-2022 Physician Order [id number]#1.00CD:127 [facility] Consent for Procedure/Surger yon 01-15-2022 Consent for Procedure/Surgery [id number] 2#1.00CD:127 [facility] Ambulatory Visit Summaryon 0 01-14-2022 Ambulatory [...] PHYSICIAN INSTRUCTIONS. PRIOR TO COLONOSCOPY. [facility] Unchanged aspirin Contact prescribing physician [...] physician if questions or concerns Pharmacy Information [facility] [phone], [place] [phone] Medications and Immunizations Administered Not Given influenza [...] including vitamins, herbs, eye drops, creams, and npvt-alf-rzkqdlf medicines. ? Any problems you or family [...] (more content not included)... Normal [facility] Gastroenterology Office/Clin ic Noteon 01-14-2022 Gastroenterology [...] E&M of New Patient Low 30-44 Min 42762 2. Family history of polyps in the colon (Z83.71: Family history of colonic polyps) Same as above plan of care. See #1. Ordered: Colonoscopy (Hospital Procedure) E&M of New Patient Low 30-44 Min 43681 Orders: polyethylene glycol 3350 with electrolytes, See [...] Parent Or Guardian Refuses Normal [facility] Comment on above: Result Comment: Elec [...] including vitamins, herbs, eye drops, creams, and hwji-dyi-xxhjuzw medicines. ? Any problems you or family [...] (more content not included)... Normal [facility] Pre-Authorization for Medica l Treatmenton 01-14-2022 Pre-Authorization for Medical Treatment [id number]# 1.00CD:127 Normal [facility] Physician Referralon 022 Physician Referral [id number] #1.00CD:127 Normal [facility] Glycohemoglobin (HGB A1C) Román fentonvon 01-26-2019 Hemoglobin A1c/Hemoglobin.total mass fraction (Bld) 5.3 % Normal [facility] Comment on above: Result Comment: Bernice [...] Calcium mass conc 8.7 mg/dL Normal 8.5-10.6 [facility] Chloride molar conc 107 mmol/L Normal 98-107 [facility] CO2 molar conc 28 mmol/L Normal 21-32 [facility] Creatinine mass conc 0.97 mg/dL Normal 0.70-1.30 M[facility] Glucose mass conc 129 mg/dL High 74-106 [facility] Potassium molar conc 4.1 mmol/L Normal 3.5-5.1 [facility] Sodium molar conc 144 mmol/L Normal 136-145 [facility] Urea nitrogen mass conc (BldV) 13 mg/dL Normal 7-18 [facility] Urea nitrogen/Creatinine mass ratio 13 mg/mg Normal [facility] CBC with Differentialon Basophils #/vol (Bld) 0.0 thou/mcL Normal 0.0-0.2 M [facility] Basophils/100 WBC (Bld) 0.4 % Normal 0-3 [facility] Differential cell count method Nom (Bld) AUTOMATED DIFFERENTIAL Normal [facility] Eosinophils #/vol (Bld) 0.1 thou/mcL Normal 0.0-0.4 [facility] Eosinophils/100 WBC (Bld) 2.1 % Normal 0-7 [facility] Erythrocyte distribution width Entitic volume (RBC) 13.9 % Normal 11.7-15.0 [facility] Hematocrit Volume Fraction (Bld) 41.3 % Normal 34.0-50.0 [facility] Hemoglobin mass conc (Bld) 13.5 g/dL Normal 11.5-17.0 [facility] Lymphocytes #/vol (Bld) 1.2 thou/mcL Normal 0.7-4.5 [facility] Lymphocytes/100 WBC (Bld) 25.2 % Normal 14-46 [facility] MCH Entitic mass (RBC) 28.5 Picograms Normal 27.0-34.0 [facility] MCHC mass conc (RBC) 32.8 g/dL Normal 32.0-36.0 Moun [facility] MCV Entitic volume (RBC) 87.0 fL Normal 80-98 [facility] Monocytes #/vol (Bld) 0.2 thou/mcL Normal 0.1-1.0 M [facility] Monocytes/100 WBC (Bld) 5.2 % Normal 4-13 [facility] Neutrophils #/vol (Bld) 3.2 thou/mcL Normal 1.5-7.8 [facility] Neutrophils/100 WBC (Bld) 67.1 % Normal 40-74 [facility] Platelet mean volume Entitic volume (Bld) 9.1 fL Normal 7.5-11.2 [facility] Platelets #/vol (Bld) 253 thou/mcL Normal 140-415 M [facility] RBC #/vol (Bld) 4.74 x(10)6/mcL Normal 3.80-5.60 M[facility] WBC #/vol (Bld) 4.8 thou/mcL Normal 4.0-10.5 [facility] Partial Thromboplastin Time (aPTT)on 01-25-2019 aPTT Coag time (PPP) 33 Sec Normal 24.4-37.5 [facility] Prothrombin Timeon 9 INR Coag RelTime (Bld) 1.0 {INR} Normal 0.8-1.2 Mo [facility] Comment on above: Result Comment: CATARINA MORIN THE INDUCTION PHASE OF ORAL ANTICOAGULATION, THE INR MAY NOT REFLECT THE ANTICOAGULANT STATUS OF THE PATIENT. THERAPEUTIC RANGES FOR INR'S ARE: MOST CLINICAL SITUATIONS: INR 2.0-3.0 MECHANICAL PROSTHETIC VALVES: INR 2.5-3.5 CRITICAL: INR 5.0 Prothrombin time (PT) Coag time (PPP) 10.9 Sec Normal 9.4-12.5 [facility] Vital Signs Date Time Vital Sign Value Performing Clinician Facility 04-22-2024 14:06-0400 Body height 175.26 cm [facility] 04-22-2024 14:06-0400 Body mass index (BMI) [Ratio] 24.7 kg/m2 [facility] 04-22-2024 14:06-0400 Body weight 76.2 kg [facility] 04-22-2024 14:06-0400 Diastolic blood pressure 84 mm[Hg] [facility] 04-22-2024 14:06-0400 Heart rate 83 /min [facility] 04-22-2024 14:06-0400 Respiratory rate 12 /min [facility] 04-22-2024 14:06-0400 Systolic blood pressure 125 mm[Hg] [facility] 02-26-2024 10:26-0400 Body height 175.26 cm [facility] 02-26-2024 10:26-0400 Body mass index (BMI) [Ratio] 24.2 kg/m2 [facility] 02-26-2024 10:26-0400 Body weight 74.44 kg [facility] 02-26-2024 10:26-0400 Diastolic blood pressure 93 mm[Hg] [facility] 02-26-2024 10:26-0400 Heart rate 73 /min [facility] 02-26-2024 10:26-0400 Respiratory rate 12 /min [facility] 02-26-2024 10:26-0400 Systolic blood pressure 143 mm[Hg] [facility] 12-22-2023 10:45-0500 Body height 175.26 cm Sean Ball Other [facility] 12-22-2023 10:45-0500 Body mass index (BMI) [Ratio] 24.51 kg/m2 Sean Ball Other [place] [employer] Other 12-22-2023 10:45-0500 Body weight 75.3 kg Sean Ball Other [facility] Other 12-22-2023 10:45-0500 Body weight 75.29 kg [facility] 12-22-2023 10:45-0500 Diastolic blood pressure 80 mm[Hg] Sean Ball Other [facility] 12-22-2023 10:45-0500 Respiratory rate 12 /min Sean Ball Other [facility] [place] Other 12-22-2023 10:45-0500 Systolic blood pressure 130 mm[Hg] Sean Ball Other [facility] 08-31-2023 09:30-0400 Body height 175.26 cm Sean Ball Other [place] [employer] Other 08-31-2023 09:30-0400 Body mass index (BMI) [Ratio] 22.21 kg/m2 Sean Ball Other [employer] Other 08-31-2023 09:30-0400 Body weight 68.22 kg Sean Ball Other [employer] Other 08-31-2023 09:30-0400 Diastolic blood pressure 79 mm[Hg] Sean Ball Other [employer] Other 08-31-2023 09:30-0400 Respiratory rate 12 /min Sean Ball Other [employer] Other 08-31-2023 09:30-0400 Systolic blood pressure 120 mm[Hg] Sean Ball Other [employer] Other 12-15-2022 15:45-0500 Body height 175.26 cm Sean Ball Other [employer] Other 12-15-2022 15:45-0500 Body mass index (BMI) [Ratio] 25.25 kg/m2 Sean Ball Other [employer] Other 12-15-2022 15:45-0500 Body weight 77.57 kg Sean Ball Other [employer] Other 12-15-2022 15:45-0500 Diastolic blood pressure 76 mm[Hg] Sean Ball Other [employer] Other 12-15-2022 15:45-0500 Respiratory rate 12 /min Sean Ball Other [employer] Other 12-15-2022 15:45-0500 Systolic blood pressure 122 mm[Hg] Sean Ball Other [employer] Other 11-28-2022 15:45-0500 Body height 175.26 cm Sean Ball Other [employer] Other 11-28-2022 15:45-0500 Body mass index (BMI) [Ratio] 24.98 kg/m2 Sean Ball Other [employer] Other 11-28-2022 15:45-0500 Body weight 76.75 kg Sean Ball Other [employer] Other 11-28-2022 15:45-0500 Diastolic blood pressure 78 mm[Hg] Sean Ball Other [employer] Other 11-28-2022 15:45-0500 Respiratory rate 12 /min Sean Ball Other [employer] Other 11-28-2022 15:45-0500 Systolic blood pressure 122 mm[Hg] Sean Ball Other [employer] Other 02-12-2022 14:50-0400 Blood Pressure Location Esme Lopez [facility] 02-12-2022 14:50-0400 Diastolic blood pressure 84 mm[Hg] Esme Fishermetz [facility] 02-12-2022 14:50-0400 Heart rate 66 /min Esme Lopez [facility] 02-12-2022 14:50-0400 Respiratory rate 16 /min Esme Lopez [facility] 02-12-2022 14:50-0400 Systolic blood pressure 118 mm[Hg] Esme Lopez [facility] Encounters Encounter Date Encounter Type Care Provider Facility Start: 04-22-2024 End: 04-22-2024 ambulatory [facility] Work Phone: Start: 04-22-2024 End: 04-22-2024 Patient encounter procedure [facility] Work Phone: Start: 03-15-2024 End: 03-16-2024 ambulatory CESAR MARCH Not Available Start: 02-26-2024 End: 02-26-2024 ambulatory [facility] Work Phone: Start: 02-26-2024 End: 02-26-2024 Patient encounter procedure [facility] Work Phone: Start: 01-04-2024 End: 01-04-2024 ambulatory Sean Garcia Other [employer] Other Start: 01-04-2024 Telephone encounter Sean Garcia [facility] Start: 01-01-2024 End: 01-02-2024 ambulatory SEAN GARCIA Not Available Start: 12-24-2023 End: 12-24-2023 ambulatory Sean Garcia Other [employer] Other Start: 12-24-2023 Telephone encounter Sean Garcia [facility] Start: 12-22-2023 End: 12-22-2023 ambulatory Sean Garcia Other [employer] Other Start: 12-22-2023 Office outpatient visit 15 minutes Sean Garcia [facility] Start: 12-22-2023 End: 12-22-2023 Patient encounter procedure [facility] Start: 09-17-2023 End: 09-17-2023 ambulatory Sean Garcia Other [employer] Other Start: 09-17-2023 Telephone encounter Sean LOMBARDI [facility] Start: 09-07-2023 End: 09-07-2023 ambulatory Sean Garcia Other [employer] Other Start: 09-07-2023 Telephone encounter Sean Garcia [facility] Start: 08-31-2023 End: 08-31-2023 ambulatory Sean Garcia Other [employer] Other Start: 08-31-2023 Encounter for genera l adult medical examination without abnormal findings Sean Garcia [facility] Start: 08-31-2023 Periodic preventive med est patient 40-64yrs Sean Garcia [facility] Start: 07-18-2023 End: 07-18-2023 ambulatory Sean Garcia Other [employer] Other Start: 07-18-2023 Telephone encounter Sean LOMBARDI [facility] Start: 04-03-2023 End: 04-04-2023 ambulatory NARENDRANATH LAKSHMIPATHY . Facility: Start: 03-10-2023 End: 03-10-2023 ambulatory NARENDRANATH LAKSHMIPATHY . Facility:[facility] Start: 02-24-2023 End: 02-24-2023 ambulatory GABRIELAJESSE AUSTINMIFLEX . Facility:[facility] Start: 01-22-2023 End: 01-23-[address] AMPARO KULKARNI . Facility:[facility] Start: 01-07-2023 End: 01-07-2023 ambulatory Sean Garcia Other [employer] Other Start: 01-07-2023 Telephone encounter Sean LOMBARDI [facility] Start: 01-06-2023 End: 01-06-[address] AMPARO KULKARNI . Facility:[facility] Start: 12-25-2022 End: 12-26-[address] AMPARO KULKARNI . Facility:[facility] Start: 12-15-2022 End: 12-15-2022 ambulatory Sean Garcia Other [employer] Other Start: 12-15-2022 Office outpatient visit 15 minutes Sena Garcia [facility] Start: 12-15-2022 Telephone encounter Sean LOMBARDI [facility] Start: 12-02-2022 End: 12-02-[address] AMPARO KULKARNI . Facility:[facility] Start: 11-28-2022 End: 11-28-2022 ambulatory Sean Garcia Other [employer] Other Start: 11-28-2022 Office outpatient visit 15 minutes Sean Garcia [facility] Start: 11-28-2022 Telephone encounter Sean LOMBARDI [facility] Start: 08-05-2022 End: 08-06-[address] AMPARO KULKARNI . Facility:[facility] Start: 08-05-2022 End: 08-06-[address] AMPARO KULKARNI . Facility:[facility] Start: 02-12-2022 End: 02-12-2022 Patient encounter procedure Esme Lopez [facility] Start: 01-26-2019 End: 01-26-2019 Patient encounter procedure AV BUSTAMANTE Facility:[place] Procedures Date Procedure Procedure Detail Performing Clinician Start: 02-22-2016 General examination of patient Sean Garcia Other Plan of Treatment Date Care Activity Detail Author Start: 02-26-2024 Patient referral [facility] Work Phone: Patient referral [facility] Work Phone: Immunizations Immunization Date Immunization Notes Care Provider Robert curry 08-31-2023 influenza, injectable, quadrivalent, preservative free Sean Garcia Other [facility] 10-01-2020 influenza virus vaccine, split virus (incl. purified surface antigen) Sean Garcia Other [employer] Other 10-01-2020 influenza virus vaccine, unspecified formulation [facility] 01-05-2016 tetanus toxoid, reduced diphtheria toxoid, and acellular pertussis vaccine, adsorbed Sean Garcia Other [facility] 12-24-2015 diphtheria, tetanus toxoids and acellular pertussis vaccine, unspecified formulation Sean Jose Other [facility] 12-25-2011 diphtheria, tetanus toxoids and acellular pertussis vaccine, unspecified formulation Sean Garcia Other [facility] NEGATED: Highlighted row has not occurred!02-12-2022 influenza virus vaccine, unspecified formulation Esme Lopez [facility] NEGATED: Highlighted row has not occurred!01-14-2022 influenza virus vaccine, unspecified formulation Esme Lopez [facility] Payers Date Payer Category Payer Unknown [id number] 2.16.8 [id number] 1965 Unknown [id number] 2.16.84 0.1.880822.3.579.2.593 1965 Unknown [id number] 2.16.84 0.1.161406.3.579.2.593 1964 Unknown [id number] 2.16.84 0.1.080583.3.579.2.593 1964 Unknown [id number] 2.16.84 0.1.565801.3.579.2.593 1964 Unknown [id number] 2.16.84 0.1.374247.3.579.2.593 1964 Unknown [id number] 2.16.84 0.1.726780.3.579.2.593 1964 Unknown [id number] 2.16.84 0.1.419872.3.579.2.593 1964 Unknown [id number] 2.16.84 0.1.889870.3.579.2.593 1964 Unknown [id number] 2.16.84 0.1.070072.3.579.2.593 1964 Unknown [id number] 2.16.84 0.1.635820.3.579.2.1259 1964 Unknown [id number] 2.16.84 0.1.234374.3.579.2.1259 1960 [facility] Blue Shield [id number] 1960 Private Health Insurance [id number] Self-pay Self Pay [id number] Unknown [facility] [id number] Social History Date Type Detail Facility Start: 02-12-2022 End: 12-22-2023 Tobacco smoking status Never smoked tobacco (finding) [facility] Sex Assigned At Male [facility] Start: 1965 Sex Assigned At Male [facility] Clinical Notes 02-12-2022 to 12-24-2023 Note Date & Type Note Facility 12-24-2023 Evaluation note Encounter Date Diagnosis Assessment Notes Dec, Nocturnal headaches (ICD-10 - R51.9) [employer] Other 01-30-2024 Evaluation note* Encounter Date Diagnosis [...] to go to ER for suspicious symptoms [employer] Other 10-09-2023 Evaluation note* Encounter Date Diagnosis [...] (prostate specific antigen) (ICD-10 - Z12.5) Yearly JNA and PSA [employer] Other 03-02-2023 NoteCONSULTATION CONSULTATION DATE: 01/22/2023 HISTORY: [...] q.h.s. Patient does agree with this plan.[id number] Note CONSULTATION CONSULTATION DATE: 12/25/2022 HISTORY OF [...] be followed up in the clinic thereafter.[id number] Evaluation note* Encounter Date Diagnosis Assessment Notes Treatment Notes Treatment Clinical Notes Nov, Acute salpingitis of right eustachian tube (ICD-10 - H68.011) Yawn, chew gum, sudafed as well as prescribed medication Nov, Non-recurrent acute serous otitis media of right ear (ICD-10 - H65.01) Initiate antibiotics [employer] Other 01-06-2023 Evaluation note* Encounter Date Diagnosis [...] (ICD-10 - N52.01) Sildenafil tolerated and beneficial. [employer] Other 09-13-2022 NoteCONSULTATION CONSULTATION DATE: 08/05/2022 CHIEF [...] would like to progress. CC: Sean Garcia D.O.[facility]03-23-2022 Hospital Discharge instructions Patient Education 02/12/2022 15:17:19 [...] 08/05/2005 Document Revised: 02/24/2019 Document Reviewed: 02/24/2019 [employer] Patient Education 2020 [employer]. Follow Up Care 01/29/2022 13:30:30 With:Esme Lopez CNP Address: When:1 year only if needed [facility] Evaluation + Plan note No data available for this section [facility] Evaluation noteNo InformationNort Send[employer] Other Evaluation noteNo assessment information available [facility] Work Phone: Evaluation note* Diagnosis Onset Date Resolution Status Cervical spondylosis acute Hypnic headache acute [facility] Work Phone: [facility] general Narrative - Reported* Type Description Date [...] right thumb Hospitalization History see surgical history [employer] Other [facility] general Narrative - Reported* Type Description Date [...] Colonoscopy 04/2021 Hospitalization History see surgical history [facility] Other [facility] general Narrative - Reported* Type Description Date [...] years) 01/2022 Hospitalization History see surgical history [employer] Other Reason for referral (narrative)* Reason 03/18/23 Referral for plugged right ear Diagnosis 1 Acute salpingitis of right eustachian tube (H68.011) Referral Organization [facility] Referring Provider First Name Sean Referring Provider Last Name Jose Referring Provider Specialty Internal Me dicine Referred Organization [facility] Referred Provider MaryAmie Referred Address ,[place], [place],[address] Referred Provider Specialty Ear, Nose an d [...] being referred for further evaluation and treatment. [employer] Other Summary Purpose Family History Relationship Condition [...] section and content) DATE CREATED AUTHOR 01/28/2019 [facility] DATE CREATED AUTHOR AUTHOR'S ORGANIZ ATION [facility]/11/2022 [facility] DATE CREATED AUTHOR AUTHOR'S ORGANIZ ATION 04/04/2023 [facility] DATE CREATED AUTHOR AUTHOR'S ORGANIZ ATION 03/20/2024 [facility] EPIC REASON FOR [...] BE BASED ON THE PRIMARY CLINICAL RECORDS. [employer] [facility]. provides no warranty or guarantee of the accuracy or completeness of information in this document.
== END 2024-06-28 12:47 | disposition home or self-care (01) ==
PROVIDERS: PCP Internal Medicine; Visit Provider Anesthesiology Pain Medicine
DX: M79.18 Myalgia, other site (principal); M62.838 Other muscle spasm
CPT/HCPCS: 20552; J0665; J3301

== ENCOUNTER 2024-08-09 13:38 | Outpatient (OUT) | payer BC, SELFPAY ==
--- NOTE | 2024-08-09 | XR_ITS ---
[facility] [place] [id number] Patient Name: SUZANNA SUAREZ MRN: [id number] date: 1965 Sex: M Assigned Patient Location: [facility] Current Patient Location: Accession/Order Number: [id number] Exam Date: 08/09/2024 13:51 Report Date: 08/10/2024 14:31 At the request of: JENNIFER HINKLE Procedure: XR thoracic spine 2V EXAMINATION: XR thoracic spine 2V HISTORY: Thoracic spondylosis COMPARISON: 04/28/2023 FINDINGS: BONES: Normal. Normal spondylosis. No scoliosis, fracture, or visible bony lesion. DISC SPACES: Normal. No significant disc height narrowing, subluxation, or endplate abnormality. PARASPINOUS: Negative. No paraspinous abnormality is seen. OTHER: BB marker projects over the dorsal back projected over the right T11 level XR/XR thoracic spine 2V IMPRESSION: Minimal degenerative change Electronically authenticated by: JASBIR PALOMO Date: 08/10/2024 14:31
== END 2024-08-09 13:39 | disposition home or self-care (01) ==
LOC: RAD 13:41
PROVIDERS: PCP Internal Medicine; Visit Provider Anesthesiology Pain Medicine
DX: M47.814 Spondylosis without myelopathy or radiculopathy, thoracic region (principal)
CPT/HCPCS: 72070

== ENCOUNTER 2024-08-09 15:20 | Outpatient (OUT) | payer BC, SELFPAY ==
--- NOTE | 2024-08-09 | CONS_ITS ---
CONSULTATION DATE: 08/09/2024 TO: Dr. Garcia CHIEF COMPLAINT: Includes right low thoracic back pain. HISTORY: He reports the pain as being 3-5/10 pain, sharp in character. Reports this does wake him up from his sleep. In general, it seems to get worse with activities such as standing and walking. He feels some improvement with sitting in the semi-recumbent position. Denies any change in bowel and bladder habits or new sensorimotor changes in the lower extremities. CURRENT MEDICATION: Includes baclofen 10 mg at h.s. p.r.n. and Voltaren cream to his mid to upper back area. EXAMINATION: Notable for patient having no clinical radiculopathy or myelopathy involving his lower extremities. Patient did have significant pain with thoracic facet joint loading maneuvers on the right side from approximately T7 through approximately T1, most severe at approximately T7, with an associated myofascial spasm of the lumbar iliocostalis muscle on the right side as well. 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 RECOMMENDATIONS: I recommend obtaining thoracic spine films. We have placed a skin marker at the most painful level, and to proceed with either a diagnostic medial branch block at the effected levels, based upon review of his thoracic spine films versus proceeding directly to a rhizotomy of the low to mid thoracic levels. In the interim, I have asked him to continue with his current regimen of medications. All his questions were answered. He agrees to proceed with the outlined plan. As part of providing excellent, safe, comprehensive care, the following was completed at our patient's visit: 1. A medication reconciliation and review to ensure accurate knowledge of current/active medications, including asking our patients to inform us about any [id number] medications or herbal remedies/nutritional supplements/alternative remedies. 2. A review to specifically ensure our patients have had annual screening for: elevated body mass index (BMI, see intake chart for exact total), tobacco use, screening for depression, and screening for unhealthy alcohol use. When screening is concerning, patients are provided with education and the specific recommendation to discuss the concerning health issue and treatment options with their primary care provider. ADRI
--- OUTSIDE RECORDS SUMMARY | 2024-08-09 15:41 | XMS_ITS | CCD ---
Author Organization [facility] CliniSyhi Care Team Providers Care Developmental Electronics Assembler Name Role Phone AV BUSTAMANTE Attending Unavailable [...] AMPARO Valentine Consulting Unavailable KULKARNI ., DR APMARO Valentine Admitting Unavailable KULKARNI ., DR AMPARO [...] or physicia Propensity to adverse reactions Comment:Done Traveler | VIP Other Medications Current Medications Medication Drug Class(es) [...] / neomycin 3.5 mg/ml / polymyxin b 59840 unt/ml otic suspension (14 sources) Aminoglycoside Antibacterial, Polymyxin-class Antibacterial, Corticosteroid Neomycin-Polymyxin -HC 3.5-66503-7 4 drops Otic Three times a day for 7 days Not-Taking/PRN lisinopril 5 mg oral tablet (2 sources) Angiotensin Converting Enzyme Inhibitor Start: 09-12-2017 End: 10-12-2017 take 5 mg by mouth once daily Lisinopril Discontinued 5 MG PO Daily September 12, 2017 12:00am October 12, 2017 1:03am Yiyykvcimwzt-Qimd-Cv lic Acid (Centrum) 18-400 mg-mcg Tablet (2 sources) Start: 09-11-2017 End: 02-25-2024 take 1 tablet by mouth once daily Multivitamin-Iron- Folic Acid (Centrum) 18-400 mg-mcg Tablet Discontinued 1 TAB PO Daily September 11, 2017 12:00am February 25, 2024 10:26am [place] 0-Sqe-Ukg-Fish Oil (Fish Oil) 900-1,400 mg Capsule,Delayed Release(Dr/Ec) (2 sources) Start: 09-11-2017 End: 02-25-2024 [place] 5-Dlk-Nae-Fish Oil (Fish Oil) 900-1,400 mg Capsule,Delayed Release(Dr/Ec) [...] SOLIS Date: 2022-08-07 15:39 Normal [facility] Reminderson 04-08-2022 Reminders - From: Justin Larry To: [facility] - Reminders/Recalls; Sent: 04/08/2022 18:13:16 EDT Show up: 12/24/2026 18:13:00 EST Subject: Ambulatory Reminder - 5 year colon recall Due Date/Time: 01/28/2027 18:13:00 EST Reminder/Recall Repeat colonoscopy in 5 years (2026) due to polyps Normal [facility] Ambulatory Visit Summaryon 0 3-23-2022 Ambulatory Visit [...] colono (more content not included)... Normal [facility] Gastroenterology Office/Clin ic Noteon 02-12-2022 Gastroenterology Office/Clinic [...] Parent Or Guardian Refuses Normal [facility] Comment on above: Result Comment: Elec tronically Signed By: Esme Lopez CNP\\.br\\Date and Time Signed: 02/12/22 15:22 EDT Patient [...] 08/05/2005 Document Revised: 02/24/2019 Document Reviewed: 02/24/2019 [employer] Patient Education ? 2019 [employer]. [facility] Coding Summary.on 02-03-2022 Coding Summary. CD:[id number] Gh0bWw+PGhlYWQ+PE1FV IRjE60zoPDdeA5JN9wIS W4BZDKEFZYZDC4OAO3ka GP4VGugH4FussWz UswjeZIgKQ66LZd7FWM4 eXbbVHultW2inKPhM4y0 IlHcNC09eR84LSorIUXt PoI4HvDtszohyUPw D5ynRrEdcEHfSfs+PHRh YmxlIHdpZHRoPScxMDAl GeHadJubQP7mIw4uYMGl LWNvbGxhcHNlOiBj m9xhDWHwTLopOM4dlJdu R2VbwUE2VKTmx6i8Dl88 dHI+BMAfHTA4vTvlOXec s787JiJed4qhJSN2 xQVrJDksUGT1A12pg6J8 AVOpVZVuFWF0uTA0sM5y qBkeelyxA9FcwSLtGnP3 AXD6wWNhdA3goMeb mszkgB3fVpk+S29DKN6R OITFOY7LLzl4U0DgJefm dHI+KL93NCLbIN22iEBh wGWcp4iycBh0SvTr CKVqTOU0bVikJMsvp4Op WKHbC09fcVCgk7N6CIVh lAxxgJAkGdYxaGD5wA6k ZUmbkvbtp4etehpg Olduh7bptj14nI87D61b OLwgLGStFQM4LWNqLQAs cJroln4svH3gRe3+IDxj a0iqk3zkyRs7RqGt UOVjbpPmzYvvQIY9w7Sm Gq96Z4BdkUfvp6LsZwh1 qt68oHItd0G7qWW1JLkj XPNmpS7oJJaeZhA0 SSCwGyAovA86pDGbUDkt Fq6hnVpgjMmtST8nZMKn mzuhENWjwK2yNVWvfOHo cBouOR7yDTBjbpvs v505WyIlQIG9YHGjhAMq U0LoyS2oCvKzSJNhWKNi M3LejTTyBZolM706QMpa OcT4RDBuvhJoZ4Sm IAJxoYzfRnO6q8A0Rz6Z d1CzrhuqKOD1UCudGHBq ZiL9VfKvEkV1K6HkVub2 TJXwrUpgNW4qO2Re LIQkagyhcvgctDA3SQOh AHCjiQ89aAUuVPwhNw3n t7B6q648WMJqLQJncT90 Ro2zhIapMWTamJQQ xK8rwztzs2ywalwvIyQc SHSqWCj2RQo9NKWvyUsf OrDrVPZ7YeD9SUC5zMIt oU9unTtoellkmF3q Oyc+Q49ztO1gVCS9QWJ3 ptgqUJYuewTrTK86JT65 R9FyJepqyUIsoPM+PGRp ohXjwLymLS4pZiUu k7ayf5QuHBnjN4AkIUDe PUmdFov0ROEiYUJ6yIK2 iA8gQSXeROspp0W0gHX2 B1ZyheYyoo8pn7bf XPHqMRibE52zkZCut4L5 OVIheFJ2ZRXklLyxTwRt aO89Gcu+OILfwItni5Xl Fbvox1qiv9xkqPe7 IjMwJSIgdmFsaWduPSJ0 l1TkGy15F92zKEnqGDGo QZKgSAIpQOOjeBlylq4n hA9dJn4+PGNvbCB3 bXE4sY1nQRNfJfY9XLwo W019VrSbrVEwMgixu9ru b3hjqKo8WrLoWEQgtqBh zZvkIAN5n7QdMs14 E29aZAqkZIVjOBCwAENf XFXsvIyqdq1fuD7fLp2+ VZ3au6xsoz01tL00zYR+ EYHwLPS7pRhuHIln WUIthI8hZAkdCnE3XNQc NwSseG31sETtNQndCc6s gRoyrKswSP3vLMFfifpl a714XaEbx0nnDBZz gPRzCOfiYUN4G38kz6R5 CRRqNSFfDXU5fHT3xV4e bGlnbjogbGVmdDsgdmVy yChdGDhoOFhxE217 IHRvcDsnPlBhdGllbnQg EcOqVSj9V1NyHmp1RRBd wHakMC0cyWCyPOqvSk9e tLzsnLaqSO4zAIQf dtwap958InNme3yaMKBt tHUrHOdcATD4R68ei9U2 HBXuAALmIQW9zLQ2cL4e bGlnbjogbGVmdDsg opXjyQxxKWcuCXynN102 IHRvcDsnPkJpcnRoIERh xON2CM21PT42xKUkh7L4 cSD4U1JpGINwenig evpqpJF3MNJwDMLmuD57 Cf0afFpuKx3gNJWsDHF3 QZBtfVRnZ1PbaN6nSgLd PXZnRGZbZ0ZsvVDe NRfoR634FDehEkQ1ZDMb fmPnG1ZqEPAgqCfrWoA4 z0Y4Sg4DR4R9KJ34QO22 dFWjq0I5rJE8L3La HWNxvufqfcfnpNT7TTOj OMLsdJ89Mj5arTwgEw8r BZXxIYU3AJPanJUtU7Yl lK5fBrSzWCAuTZFg S4YdyBDaFUxkY636CRzv YzE1MQBsdoIvM8AoERBy vVagCjL6u0X8Aq3NQBb3 JH04TY23yDElv1E8 fZX4W2UoUFTctwtvuaac gPY7YRGqZIXrvO61Kh3y tYduNl6eSCDuJUA9BCIm yFWlC7JuzQ6yUyDt QIXyROPiW2YvtEWtLGff O347OAtwKjF1FHLhdhXs K8DxIAHskWlsHcK7m9Q6 Fr2TFMBfVW71IBU0 uFT4GY12KJ72U9ExEcjo dGFibGU+PHRhYmxlIHdp ZHRoPScxMDAlJyBzdHls YY7mAz7sHKRnRFWj cSxixXIfEyCzm1upXJBb LBxeRC9aoUiqE4LzmJY8 ZWKni2a8Fa35H16aT1Jo dXA+MNTlcPB6jWP5 zI7sEyFbPbV2KNpjA159 TdBlbJGiDvqul9qru8ah aXf4OkS3XKIfgyWwkGog NIP2g5GcPk24U42d IHdpZHRoPSIxNSUiIHZh dStler5biU1qWk8+PGNv vRF8gFM3sO2tIyYlFzM1 NMwiO612BbFwxLFd Jvrzo5cix0lgyNz0IeVe ZRZycmHhtJlbIBR9m1Ap Kh08P1IbzXveu0RxPwp7 mi50hMTni1C7wDO6 N6SdESUldefcfFXskBzs KE7eTIEsaklyKBZapU9v AIApL0a5ZsXyIbW5ITcs W2ZqbbY8NYBdkQGu OQamAIX4X72wf9J1BRYy OPCsCUW7xKQ8dT2vzGmn bjogbGVmdDsgdmVydGlj DHaxGMbvR362PTXd bSxuVTDduH1jJRAgsXHn sObzAT5rOZVaipjtLj6S QO7aVAQMF0QEPR26ZI75 sWKzu0O3qUW5X2Qa UTCywqeqqqhpzEA6TLJc OXEfpX44bMVdMXrtWz9q w1C6n316EVLxTQXacP41 Ar5qrNciGKJctRMI hF9cfjyrj8lfrjbcZwNu ZALhBHd0EIz4MXMtjZir NuMnKMV6VmA5ELO0kUXz vX6qtQaidxqsfE6v Oyc+ZCdgCCqoWAy6HPki dGQ+AGVwQHF7eKrhHJuv HDBwvS9iSVNuM2t4LbWl NmN6TOtcJ8ZzIRHh tttxVp22xR9qZaXqWoO5 ZByiL6CsmlF4LEAffVJy QUcyLJD4Y11fg8H4MCAq CGOxVLJ2lBM2zE1a bGlnbjogbGVmdDsgdmVy dWimDPreRUpnO824MTRj rKnyXhJ4SDvpBIHoWN21 AX20rEUnq6J5nEJ7 S9OoUHWalsvitxpecMU4 VZClVAMmkX69aZIgGPtk Zz5go9G4q995GFNuWBKv bD79Oj2bkUatTBSx oFSDdG9avcxyl4ziwenc CmWiHXQwEZa0LTz7CWVg bSkpUcSlCTE2EoX9JJJ8 rJJyeN2myZvzphdu gK7rJcq+TWFsZTwvdGQ+ IGXcGKA0kSviVXbaIOBx sQ0tLCZqW4x5WoScCyJ8 THpgJ6QiOFSapmir Ey30dU9dGaSiToM8HXfu U8CusrX4SKUixMFuAQyh VWY7L70vw5H3QXRpAMMa NQF0lZB6jL0akTvs bjogbGVmdDsgdmVydGlj YRghYFcsG388PLQxdExb LdqtLxDPop2iKQ4nWdlc dGQ+MB22nd37F1Zc LtxxAut0UTYrPID2uWA5 jA0wAIKyOTjzh5P3yRB0 X6SqgmLcgx6ym4uwJVHe RUyiA21jzWPta9K3 JJSdpEA8LCEylJdmMwHt cJ49Juo+JVRefPavh6Mm Xsyus4gtg4pwcEs3BrFb JSIgdmFsaWduPSJ0 o3WxUn26H39fDYjiKJPd VXAuDNNiKEUemGqqlm4f kP1jVc0+JKZgsTH8mEU9 eM7hZmYjXgK9LFon K282BzVcsRBmKgbyx5ga g6cmnKo6AdZpNWOzhtKh gVztDCX9p8UkBz45R9Mr iExoa4QfSwv6gv59 mRIzn7O0aTB0N0XaIJNt trvxqQNjhBaeRK8rOMVt rvguEWFjbK1bEFDbT9r5 OgYzBqI1EWswC2Vd idP5KGRvsAZmKWBpyPZK oB1qxebhp6ujzddfAmOq VBSgQXm7TYo4CBGwcUjh ZmEkJZV7MiL7KRL6 cTSspC5pdEboxlyacQ4l Oyc+MUz4f3mhqCGvSY2l pHR2GH18VA78dKFzo6Z1 dUL8T9OwWUPsmiic tveghJL1MVKfYPYznR20 So1jeEaqRh1rPTExRWO7 RSNsgQXyF0SopF2wYdYk CXYrVSTjG4KhmQXw SSxiY738IBbmSmS6FJCo xlFuO2OiITSqgCgzTsD0 x7M1Bq2MZE01NN66UD14 mLMoa3W0kAS3J3Yt JDVhyqypknqguKM2BICm WLNpsL68Jl0qzMopOq3f BDXtHJH8DHBzkTWmO0Ln eK0pUiNdYLNgGTIj W8GoqJAkUDzaS748QKgq QhP6RSZzhhEvY4KoZPHc oRspXfC4v9K5Rp5ZFx39 WY31GP78iXWfk9L7 wKR0O0MwNZOknctnsxdn fJX1JYTwODEuyI10Ie8t nGpmZx2vOECvRGN8SKXj aYYsU5HoiC4oYuFr TIXhANXqV9RycPPzUZwh M726JSqnJkU6WDJophDi U3JoOXNteHhsVyI9o9T3 Cv1RLZbqpoe1N4Bn PjwvdHI+ZX98JXKhBZ16 gRQimHBlr1rwhTn7ZqPj XGArCHQ4aDmqHCpms1Dv MZVvI08ivAPog5K3 IGNv (more content not included)... Normal [facility] Outside Colonoscopyon 2021 Outside Colonoscopy [id number] #2.00CD:127 [facility] Physician Orderon 01-28-2022 Physician Order [id number] 9#1.00CD:127 [facility] Consent for Procedure/Surger yon 01-15-2022 Consent for Procedure/Surgery [id number] 2#1.00CD:127 [facility] Ambulatory Visit Summaryon 0 01-14-2022 Ambulatory [...] PHYSICIAN INSTRUCTIONS. PRIOR TO COLONOSCOPY. [facility] Unchanged aspirin Contact prescribing physician [...] physician if questions or concerns Pharmacy Information [address] [place], [place] [id number] [phone] Medications and Immunizations Administered Not Given influenza [...] including vitamins, herbs, eye drops, creams, and ymag-iem-oyhlgll medicines. ? Any problems you or family [...] loose stools (more content not included)... Normal [facility] Gastroenterology Office/Clin ic Noteon 01-14-2022 Gastroenterology Office/Clinic [...] E&M of New Patient Low 30-44 Min 27728 2. Family history of polyps in the colon (Z83.71: Family history of colonic polyps) Same as above plan of care. See #1. Ordered: Colonoscopy (Hospital Procedure) E&M of New Patient Low 30-44 Min 96987 Orders: polyethylene glycol 3350 with electrolytes, See [...] Parent Or Guardian Refuses Normal [facility] Comment on above: Result Comment: Elec tronically Signed By: Esme Lopez CNP\\.br\\Date and Time Signed: 01/14/22 15:20 EST Patient [...] including vitamins, herbs, eye drops, creams, and mhlf-rnj-ufodvjy medicines. ? Any problems you or family [...] (more content not included)... Normal [facility] Pre-Authorization for Medica l Treatmenton 01-14-2022 Pre-Authorization for Medical Treatment [id number]# 1.00CD:127 Normal [facility] Physician Referralon 022 Physician Referral [id number] #1.00CD:127 Normal [facility] Glycohemoglobin (HGB A1C) Román fentonvon 01-26-2019 Hemoglobin A1c/Hemoglobin.total mass fraction (Bld) 5.3 % Normal [facility] Comment on above: Result Comment: Bernice kamara [...] Calcium mass conc 8.7 mg/dL Normal 8.5-10.6 [facility] Chloride molar conc 107 mmol/L Normal 98-107 [facility] CO2 molar conc 28 mmol/L Normal 21-32 [facility] Creatinine mass conc 0.97 mg/dL Normal 0.70-1.30 [facility] Glucose mass conc 129 mg/dL High 74-106 [facility] Potassium molar conc 4.1 mmol/L Normal 3.5-5.1 [facility] Sodium molar conc 144 mmol/L Normal 136-145 [facility] Urea nitrogen mass conc (BldV) 13 mg/dL Normal 7-18 [facility] Urea nitrogen/Creatinine mass ratio 13 mg/mg Normal [facility] CBC with Differentialon Basophils #/vol (Bld) 0.0 thou/mcL Normal 0.0-0.2 [facility] Basophils/100 WBC (Bld) 0.4 % Normal 0-3 [facility] Differential cell count method Nom (Bld) AUTOMATED DIFFERENTIAL Normal [facility] Eosinophils #/vol (Bld) 0.1 thou/mcL Normal 0.0-0.4 [facility] Eosinophils/100 WBC (Bld) 2.1 % Normal 0-7 [facility] Erythrocyte distribution width Entitic volume (RBC) 13.9 % Normal 11.7-15.0 [facility] Hematocrit Volume Fraction (Bld) 41.3 % Normal 34.0-50.0 [facility] Hemoglobin mass conc (Bld) 13.5 g/dL Normal 11.5-17.0 [facility] Lymphocytes #/vol (Bld) 1.2 thou/mcL Normal 0.7-4.5 [facility] Lymphocytes/100 WBC (Bld) 25.2 % Normal 14-46 [facility] MCH Entitic mass (RBC) 28.5 Picograms Normal 27.0-34.0 [facility] MCHC mass conc (RBC) 32.8 g/dL Normal 32.0-36.0 [facility] MCV Entitic volume (RBC) 87.0 fL Normal 80-98 [facility] Monocytes #/vol (Bld) 0.2 thou/mcL Normal 0.1-1.0 [facility] Monocytes/100 WBC (Bld) 5.2 % Normal 4-13 [facility] Neutrophils #/vol (Bld) 3.2 thou/mcL Normal 1.5-7.8 [facility] Neutrophils/100 WBC (Bld) 67.1 % Normal 40-74 [facility] Platelet mean volume Entitic volume (Bld) 9.1 fL Normal 7.5-11.2 [facility] Platelets #/vol (Bld) 253 thou/mcL Normal 140-415 [facility] RBC #/vol (Bld) 4.74 x(10)6/mcL Normal 3.80-5.60 [facility] WBC #/vol (Bld) 4.8 thou/mcL Normal 4.0-10.5 [facility] Partial Thromboplastin Time (aPTT)on 01-25-2019 aPTT Coag time (PPP) 33 Sec Normal 24.4-37.5 [facility] Prothrombin Timeon 9 INR Coag RelTime (Bld) 1.0 {INR} Normal 0.8-1.2 [facility] Comment on above: Result Comment: CATARINA MORIN THE INDUCTION PHASE OF ORAL ANTICOAGULATION, THE INR MAY NOT REFLECT THE ANTICOAGULANT STATUS OF THE PATIENT. THERAPEUTIC RANGES FOR INR'S ARE: MOST CLINICAL SITUATIONS: INR 2.0-3.0 MECHANICAL PROSTHETIC VALVES: INR 2.5-3.5 CRITICAL: INR 5.0 Prothrombin time (PT) Coag time (PPP) 10.9 Sec Normal 9.4-12.5 [facility] Vital Signs Date Time Vital Sign Value Performing Clinician Facility 04-22-2024 14:06-0400 Body height 175.26 cm [facility] 04-22-2024 14:06-0400 Body mass index (BMI) [Ratio] 24.7 kg/m2 [facility] 04-22-2024 14:06-0400 Body weight 76.2 kg [facility] 04-22-2024 14:06-0400 Diastolic blood pressure 84 mm[Hg] [facility] 04-22-2024 14:06-0400 Heart rate 83 /min [facility] 04-22-2024 14:06-0400 Respiratory rate 12 /min [facility] 04-22-2024 14:06-0400 Systolic blood pressure 125 mm[Hg] [facility] 02-26-2024 10:26-0400 Body height 175.26 cm [facility] 02-26-2024 10:26-0400 Body mass index (BMI) [Ratio] 24.2 kg/m2 [facility] 02-26-2024 10:26-0400 Body weight 74.44 kg [facility] 02-26-2024 10:26-0400 Diastolic blood pressure 93 mm[Hg] [facility] 02-26-2024 10:26-0400 Heart rate 73 /min [facility] 02-26-2024 10:26-0400 Respiratory rate 12 /min [facility] 02-26-2024 10:26-0400 Systolic blood pressure 143 mm[Hg] [facility] 12-22-2023 10:45-0500 Body height 175.26 cm Sean Ball Other [facility] 12-22-2023 10:45-0500 Body mass index (BMI) [Ratio] 24.51 kg/m2 Sean Ball Other [place] [employer] Other 12-22-2023 10:45-0500 Body weight 75.3 kg Sean Ball Other [facility] [employer] Other 12-22-2023 10:45-0500 Body weight 75.29 kg [facility] 12-22-2023 10:45-0500 Diastolic blood pressure 80 mm[Hg] Sean Ball Other [facility] 12-22-2023 10:45-0500 Respiratory rate 12 /min Sean Ball Other [facility] [employer] Other 12-22-2023 10:45-0500 Systolic blood pressure 130 mm[Hg] Sean Ball Other [facility] 08-31-2023 09:30-0400 Body height 175.26 cm Sean Ball Other [place] [employer] Other 08-31-2023 09:30-0400 Body mass index (BMI) [Ratio] 22.21 kg/m2 Sean Ball Other [employer] Other 08-31-2023 09:30-0400 Body weight 68.22 kg Sean Ball Other [employer] Other 08-31-2023 09:30-0400 Diastolic blood pressure 79 mm[Hg] Sean Ball Other [employer] Other 08-31-2023 09:30-0400 Respiratory rate 12 /min Sean Ball Other [employer] Other 08-31-2023 09:30-0400 Systolic blood pressure 120 mm[Hg] Sean Ball Other [employer] Other 12-15-2022 15:45-0500 Body height 175.26 cm Sean Ball Other [employer] Other 12-15-2022 15:45-0500 Body mass index (BMI) [Ratio] 25.25 kg/m2 Sean Ball Other [employer] Other 12-15-2022 15:45-0500 Body weight 77.57 kg Sean Ball Other [employer] Other 12-15-2022 15:45-0500 Diastolic blood pressure 76 mm[Hg] Sean Ball Other [employer] Other 12-15-2022 15:45-0500 Respiratory rate 12 /min Sean Ball Other [employer] Other 12-15-2022 15:45-0500 Systolic blood pressure 122 mm[Hg] Sean Ball Other [employer] Other 11-28-2022 15:45-0500 Body height 175.26 cm Sean Ball Other [employer] Other 11-28-2022 15:45-0500 Body mass index (BMI) [Ratio] 24.98 kg/m2 Sean Ball Other [employer] Other 11-28-2022 15:45-0500 Body weight 76.75 kg Sean Ball Other [employer] Other 11-28-2022 15:45-0500 Diastolic blood pressure 78 mm[Hg] Sean Ball Other [employer] Other 11-28-2022 15:45-0500 Respiratory rate 12 /min Sean Ball Other [employer] Other 11-28-2022 15:45-0500 Systolic blood pressure 122 mm[Hg] Sean Ball Other [employer] Other 02-12-2022 14:50-0400 Blood Pressure Location Esme Lopez [facility] 02-12-2022 14:50-0400 Diastolic blood pressure 84 mm[Hg] Esme Fishermetz [facility] 02-12-2022 14:50-0400 Heart rate 66 /min Esme Lopez [facility] 02-12-2022 14:50-0400 Respiratory rate 16 /min Esme Lopez [facility] 02-12-2022 14:50-0400 Systolic blood pressure 118 mm[Hg] Esme Lopez [facility] Encounters Encounter Date Encounter Type Care Provider Facility Start: 04-22-2024 End: 04-22-2024 ambulatory [facility] Work Phone: Start: 04-22-2024 End: 04-22-2024 Patient encounter procedure [facility] Work Phone: Start: 03-15-2024 End: 03-16-2024 ambulatory CESAR MARCH Not Available Start: 02-26-2024 End: 02-26-2024 ambulatory [facility] Work Phone: Start: 02-26-2024 End: 02-26-2024 Patient encounter procedure [facility] Work Phone: Start: 01-04-2024 End: 01-04-2024 ambulatory Sean Garcia Other [employer] Other Start: 01-04-2024 Telephone encounter Sean Garcia [facility] Start: 01-01-2024 End: 01-02-2024 ambulatory SEAN GARCIA Not Available Start: 12-24-2023 End: 12-24-2023 ambulatory Sean Garcia Other [employer] [facility] [employer] Other Start: 12-24-2023 Telephone encounter Sean Garcia [facility] Start: 12-22-2023 End: 12-22-2023 ambulatory Sean Garcia Other [employer] Other Start: 12-22-2023 Office outpatient visit 15 minutes Sean Garcia [facility] Start: 12-22-2023 End: 12-22-2023 Patient encounter procedure [facility] Start: 09-17-2023 End: 09-17-2023 ambulatory Sean Garcia Other [employer] [facility] [employer] Other Start: 09-17-2023 Telephone encounter Sean LOMBARDI [facility] Start: 09-07-2023 End: 09-07-2023 ambulatory Sean Garcia Other [employer] [facility] [employer] Other Start: 09-07-2023 Telephone encounter Sean Garcia [facility] Start: 08-31-2023 End: 08-31-2023 ambulatory Sean Garcia Other [employer] [facility] [employer] Other Start: 08-31-2023 Encounter for genera l adult medical examination without abnormal findings Sean Garcia [facility] Start: 08-31-2023 Periodic preventive med est patient 40-64yrs Sean Garcia [facility] Start: 07-18-2023 End: 07-18-2023 ambulatory Sean Garcia Other [employer] Other Start: 07-18-2023 Telephone encounter Sean LOMBARDI [facility] Start: 04-03-2023 End: 04-04-2023 ambulatory NARENDRANATH LAKSHMIPATHY . Facility: Start: 03-10-2023 End: 03-10-2023 ambulatory NARENDRANATH LAKSHMIPATHY . Facility:[facility] Start: 02-24-2023 End: 02-24-2023 ambulatory GABRIELAJESSE AUSTINMIFLEX . Facility:[facility] Start: 01-22-2023 End: 01-23-[address] AMPARO KULKARNI . Facility:[facility] Start: 01-07-2023 End: 01-07-2023 ambulatory Sean Garcia Other Traveler | [facility] Other Start: 01-07-2023 Telephone encounter Sean LOMBARDI [facility] Start: 01-06-2023 End: 01-06-[address] AMPARO KULKARNI . Facility:[facility] Start: 12-25-2022 End: 12-26-[address] AMPARO KULKARNI . Facility:[facility] Start: 12-15-2022 End: 12-15-2022 ambulatory Sean Garcia Other Traveler | VIP Other Start: 12-15-2022 Office outpatient visit 15 minutes Sean Garcia [facility] Start: 12-15-2022 Telephone encounter Sean LOMBARDI [facility] Start: 12-02-2022 End: 12-02-[address] AMPARO KULKARNI . Facility:[facility] Start: 11-28-2022 End: 11-28-2022 ambulatory Sean Garcia Other Traveler | [facility] Other Start: 11-28-2022 Office outpatient visit 15 minutes Sean Garcia [facility] Start: 11-28-2022 Telephone encounter Sean LOMBARDI [facility] Start: 08-05-2022 End: 08-06-[address] AMPARO KULKARNI . Facility:[facility] Start: 08-05-2022 End: 08-06-[address] AMPARO KULKARNI . Facility:[facility] Start: 02-12-2022 End: 02-12-2022 Patient encounter procedure Esme Lopez [facility] Start: 01-26-2019 End: 01-26-2019 Patient encounter procedure AV BUSTAMANTE Facility:[place] Procedures Date Procedure Procedure Detail Performing Clinician Start: 02-22-2016 General examination of patient Sean Garcia Other Plan of Treatment Date Care Activity Detail Author Start: 02-26-2024 Patient referral [facility] Work Phone: Patient referral [facility] Work Phone: Immunizations Immunization Date Immunization Notes Care Provider Robert curry 08-31-2023 influenza, injectable, quadrivalent, preservative free Sean Garcia Other [facility] 10-01-2020 influenza virus vaccine, split virus (incl. purified surface antigen) Sean Garcia Other [facility] Other 10-01-2020 influenza virus vaccine, unspecified formulation [facility] 01-05-2016 tetanus toxoid, reduced diphtheria toxoid, and acellular pertussis vaccine, adsorbed Sean Garcia Other [facility] 12-24-2015 diphtheria, tetanus toxoids and acellular pertussis vaccine, unspecified formulation Sean Jose Other [facility] 12-25-2011 diphtheria, tetanus toxoids and acellular pertussis vaccine, unspecified formulation Sean Garcia Other [facility] NEGATED: Highlighted row has not occurred!02-12-2022 influenza virus vaccine, unspecified formulation Esme Lopez [facility] NEGATED: Highlighted row has not occurred!01-14-2022 influenza virus vaccine, unspecified formulation Esme Lopez [facility] Payers Date Payer Category Payer Unknown [id number] 2.16.8 [id number] 1964 Unknown [id number] 2.16.84 [id number] 1964 Unknown [id number] 2.16.84 0.1.900503.3.579.2.593 1964 Unknown [id number] 2.16.84 0.1.486798.3.579.2.593 1964 Unknown [id number] 2.16.84 0.1.945881.3.579.2.593 1964 Unknown [id number] 2.16.84 0.1.496558.3.579.2.593 1964 Unknown [id number] 2.16.84 0.1.495378.3.579.2.593 1964 Unknown [id number] 2.16.84 0.1.051152.3.579.2.593 1964 Unknown [id number] 2.16.84 0.1.381485.3.579.2.593 1964 Unknown [id number] 2.16.84 0.1.156987.3.579.2.593 1964 Unknown [id number] 2.16.84 0.1.277151.3.579.2.1259 1964 Unknown [id number] 2.16.84 0.1.218044.3.579.2.1259 1959 [facility] [employer] [id number] 1959 Private Health Insurance [id number] Self-pay Self Pay [id number] Unknown [facility] [id number] Social History Date Type Detail Facility Start: 02-12-2022 End: 12-22-2023 Tobacco smoking status Never smoked tobacco (finding) [facility] Tobacco smoking status Never [facility] & [facility] Sex Assigned At Male [facility] Start: 1965 Sex Assigned At Male [facility] Clinical Notes 02-12-2022 to 12-24-2023 Note Date & Type Note Facility 12-24-2023 Evaluation note Encounter Date Diagnosis Assessment Notes Dec, Nocturnal headaches (ICD-10 - R51.9) [facility] Other 01-30-2024 Evaluation note* Encounter Date Diagnosis [...] to go to ER for suspicious symptoms [facility] Other 10-09-2023 Evaluation note* Encounter Date Diagnosis [...] (ICD-10 - Z12.5) Yearly JAN and PSA [facility] Other 03-02-2023 NoteCONSULTATION CONSULTATION DATE: 01/22/2023 HISTORY: [...] q.h.s. Patient does agree with this plan.[id number] Note CONSULTATION CONSULTATION DATE: 12/25/2022 HISTORY OF [...] be followed up in the clinic thereafter.[id number] Evaluation note* Encounter Date Diagnosis Assessment Notes Treatment Notes Treatment Clinical Notes Nov, Acute salpingitis of right eustachian tube (ICD-10 - H68.011) Yawn, chew gum, sudafed as well as prescribed medication Nov, Non-recurrent acute serous otitis media of right ear (ICD-10 - H65.01) Initiate antibiotics [facility] Other 01-06-2023 Evaluation note* Encounter Date Diagnosis [...] (ICD-10 - N52.01) Sildenafil tolerated and beneficial. [facility] Other 09-13-2022 NoteCONSULTATION CONSULTATION DATE: 08/05/2022 CHIEF [...] to progress. CC: Sean Garcia D.O.[facility]03-23-2022 Hospital Discharge instructions Patient Education 02/12/2022 [...] 08/05/2005 Document Revised: 02/24/2019 Document Reviewed: 02/24/2019 [employer] Patient Education 2020 [employer]. Follow Up Care 01/29/2022 13:30:30 With:Esme Lopez CNP Address: When:1 year only if needed [facility] Evaluation + Plan note No data available for this section [facility] Evaluation noteNo InformationNort Banyan Other Evaluation noteNo assessment information available [facility] Work Phone: Evaluation note* Diagnosis Onset Date Resolution Status Cervical spondylosis acute Hypnic headache acute [facility] Work Phone: Hisimfk general Narrative - Reported* Type Description Date [...] right thumb Hospitalization History see surgical history [facility] Other [facility] general Narrative - Reported* Type Description Date [...] Colonoscopy 04/2021 Hospitalization History see surgical history [facility] Other Hisaupw general Narrative - Reported* Type Description Date [...] years) 01/2022 Hospitalization History see surgical history [facility] Other Reason for referral (narrative)* Reason 03/18/23 Referral for plugged right ear Diagnosis 1 Acute salpingitis of right eustachian tube (H68.011) Referral Organization [facility] Referring Provider First Name Sean Referring Provider Last Name Jose Referring Provider Specialty Internal Me dicine Referred Organization [facility] Referred Provider MaryAmie Referred Address ,[place], [place],[address] Referred Provider Specialty Ear, Nose an d [...] being referred for further evaluation and treatment. [facility] Other Summary Purpose Family History Relationship Condition [...] section and content) DATE CREATED AUTHOR 01/28/2019 [facility] DATE CREATED AUTHOR AUTHOR'S ORGANIZ ATION [facility]/2022 [facility] DATE CREATED AUTHOR AUTHOR'S ORGANIZ ATION 04/04/2023 [facility] DATE CREATED AUTHOR AUTHOR'S ORGANIZ ATION 03/20/2024 [facility] EPIC REASON FOR VISIT [...] BE BASED ON THE PRIMARY CLINICAL RECORDS. [facility]. provides no warranty or guarantee of the accuracy or completeness of information in this document."
== END 2024-08-09 15:21 | disposition home or self-care (01) ==
LOC: PM 15:20
PROVIDERS: PCP Internal Medicine; Visit Provider Anesthesiology Pain Medicine
DX: M47.814 Spondylosis without myelopathy or radiculopathy, thoracic region (principal); G89.29 Other chronic pain
CPT/HCPCS: 72070; G0463

== ENCOUNTER 2024-08-23 06:37 | Day surgery (SDC) | payer BC, SELFPAY ==
--- OUTSIDE RECORDS SUMMARY | 2024-08-23 06:40 | XMS_ITS | CCD ---
Author Organization [facility]ini[facility] Care Team Providers Care Sales Order Processor Name Role Phone AV BUSTAMANTE Attending Unavailable SEAN GARCIA Primary Care Unavailable IGNACIA SCOTT Primary Care Physician [phone] Sean Garcia SHAD ., DR AMPARO Valentine [...] BHAKTA Primary Care Unavailable ZIEBDELILAH, DR NINA [employer] Unavailable KULKARNI ., DR AMPARO Valentine [...] or physicia Propensity to adverse reactions Comment:Done [facility] Other Medications Current Medications Medication Drug Class(es) [...] / neomycin 3.5 mg/ml / polymyxin b 57523 unt/ml otic suspension (14 sources) Aminoglycoside Antibacterial, Polymyxin-class Antibacterial, Corticosteroid Neomycin-Polymyxin -HC 3.5-54131-5 4 drops Otic Three times a day for 7 days Not-Taking/PRN lisinopril 5 mg oral tablet (2 sources) Angiotensin Converting Enzyme Inhibitor Start: 09-12-2017 End: 10-12-2017 take 5 mg by mouth once daily Lisinopril Discontinued 5 MG PO Daily September 12, 2017 12:00am October 12, 2017 1:03am Walobenjqwhi-Pcnw-Up lic Acid (Centrum) 18-400 mg-mcg Tablet (2 sources) Start: 09-11-2017 End: 02-25-2024 take 1 tablet by mouth once daily Multivitamin-Iron- Folic Acid (Centrum) 18-400 mg-mcg Tablet Discontinued 1 TAB PO Daily September 11, 2017 12:00am February 25, 2024 10:26am Gays 9-Imo-Fuy-Fish Oil (Fish Oil) 900-1,400 mg Capsule,Delayed Release(Dr/Ec) (2 sources) Start: 09-11-2017 End: 02-25-2024 Gays 6-Kng-Xfk-Fish Oil (Fish Oil) 900-1,400 mg Capsule,Delayed Release(Dr/Ec) [...] by: NINA SOLIS Date: 2022-08-07 15:39 Normal [facility] Reminderson 04-08-2022 Reminders - From: Justin Larry To: [facility] - Reminders/Recalls; Sent: 04/08/2022 18:13:16 EDT Show up: 12/24/2026 18:13:00 EST Subject: Ambulatory Reminder - 5 year colon recall Due Date/Time: 01/28/2027 18:13:00 EST Reminder/Recall Repeat colonoscopy in 5 years (2026) due to polyps Normal [facility] Ambulatory Visit Summaryon 0 3-23-2022 Ambulatory [...] colono (more content not included)... Normal [facility] Gastroenterology Office/Clin ic Noteon 02-12-2022 [...] Not Given Parent Or Guardian Refuses Normal [facility] Comment on above: Result Comment: Elec [...] 08/05/2005 Document Revised: 02/24/2019 Document Reviewed: 02/24/2019 [employer] Patient Education ? 2019 [email or web address]. [facility] Coding Summary.on 02-03-2022 Coding Summary. CD:[id number] Gh0bWw+PGhlYWQ+PE1FV IHpA70twBHziI2PM7xCF T1SWFGIGFYZLZ0SLI0cj DC3FSppK8JpzgDp UnywrSCkUC53SJi0XEL7 iEtsGKcdlU2wvLJpH5h4 SyOjYU71yC84UIbnIYXd BnR7HpKzpfpjlCQu I7odMiUcySPhYzd+PHRh YmxlIHdpZHRoPScxMDAl TpBshEegOR5nXo3rEDQn LWNvbGxhcHNlOiBj m2alPJTrHBcaMJ5azVih Z5ImePB2ZOOog7v2Ww26 dHI+ZCIqFDY8fAszRQbw m599BzHod4zxOVI7 tHWtSPgiJBK1A29js1I8 XGAjUHJtJGJ2sKK0qD2r tMumyacaJ3VtgLXwBiA3 GUI6aJRqoN8seMfy ztznwV1aQzs+L19EYD8V EEPSFC0QPqx3S8PlJjkf dHI+WF75JDLsEV39rZPc cAFsv7rdrCg5GcLk QINnKOM8qYovNGuxu5Ql KDYlT03ufWFaw7Q3PGQo rJljnLGqNgXvdRW7eB0q EJcoxorgn4plijyw Jdgpi6dxfc55jW75E73i ZZqmTUEmSCQ7XPNeOJKj yOfaab0ipV5lGg1+IDxj z2lrd8lumKt4EvCo HIJqtjXpzTmsRNF5m7Ah Ug99Z0HxnAgrr1RuZbt9 pw08yLTec2M9eQJ9BJpn ULIwgD2xAHgfWfD7 PJQsZbXfqL11dUEjWWle Hd7maPiujToaFE0dVJNi atkqATNljO1bYYEykJAm cWxjCS8zGEEvmczv f359MkDlQSB3MWXcjWGd N8AxyZ2wFpIcVFRaKSLj J2CktINhNHmyO192GFkw MoQ8BJMoaeSdC2Um YCQadOltOcB2k2G6Vd1L a3RbdfryGNH7MJpdVHQw WfQ9IsTmUmT7K4CsQxm1 MKXaqMylBP4fA8Xc LOSedbdjmelmtDJ9PEKm IOVhpX17fSOuCVnvCs3z h7R3d657OXKaXQZsrI06 Js8bjEokJSJugENF dJ1pljjjk1vknjkvObAf VLWhVUb2VOv8BMFjbAar JaMzOQZ5NjW6EUN6gDWb vL5hgNbwvhbsjX5s Oyc+U63sfL9qRSB2ROU4 ocnnUWAqbiPoSK83ID70 T0MeLwqmrQYfaUT+PGRp vsToiHtrJA8dOsIb p5bra2AoCHdjS4QoCOUg EIlnOjr0LPKrNMC5gHC9 pE5oUVFyXPkcw8N8sLI0 R1XneySbdy1no2te KGKuQKwhL65ceQIky8L0 RPQbuTX0XSZviHedDrYk sY65Kdp+ZFWqdAsqd0Gc Prbbd4wpu7mdeEp9 IjMwJSIgdmFsaWduPSJ0 s5LuCi22E50tOGfsGCUk WAKrVKPdSVAwrAahsg1u yB8aBp7+PGNvbCB3 vYY6xU2qRBOxRhK9TJvl E781KlAikBBpNyqfm4tr v2suqTm0RlVmNGYvbmIv oRtcVND2h1WyTh15 D41wQRhoRXHiFBHlBUNy MZKinHzxyb8nqM3rEn2+ KA7ze2xkgm42lX43gRF+ OFBkNAG5tXelGBoj HXPxoL7bLWeuXgC5BMVp WjRyvQ07fWOzYLieWl6f yXwcfSgcXC1sQPEitbas t735BrRbv1pgETAk jCJpAYdsLNK9O92rg4T2 ZWCtKLUeIYW0tJY8uB8f bGlnbjogbGVmdDsgdmVy nIppPVqtXFodY104 IHRvcDsnPlBhdGllbnQg HnAvZLg6W2HpXqi8ZCGh oPtjFM1egOWrUYzfSc1u yGibgKtaIW2nJXLz iptpp995IyFtd9mlYERk oDUvPMqnUDS4U68vg1W2 IMBoHLHhTCD0rGF0iH7j bGlnbjogbGVmdDsg ylZrsMbmKImwVKpzJ275 IHRvcDsnPkJpcnRoIERh iYQ8PX80FQ41vXKip2X5 pHU1B8AaDPWshwyw bhljvBN6NSSvLPFnvR32 De8etPnzWt4cWQFpDGC3 PHCsbKLaE5OniG2iQzFj OUMcUIVrG7JvfOCt YDdnK005KQwvWlH2SHRt otLhV4ZpPUGdcCkcYvK6 h2V1Rh5SE6H0IR66MQ26 gISwm6W2yZZ7A2Oh EOVccsweloqzuXW3YSYd SZGazS39Kt0wfQkqBr6e BXRbXSY8NKMmqTTrJ5Zg cY8bCaNyODCzJUCk W1TpcZHwNDbnE445MRfn HuG4LWZyynRwH1FkJWLk iXrfBcS7e9D4Qb6XDVu5 DM77EM85eISnb5B1 qOE1N6YuXAAhhvalfqme zKG1AGBdEBQrwW63Nb3q uXdwZz4oPKEyKHI5WHIz eUEnG3UptZ9kNxHi LFLtGAJuZ3WixENrJUvu V780AOrxHeD0EFMzcnVy A6LwASBtvLeyFsP0g5E3 Cy1WDAIxUE35RHY5 cOK5ZY54VT78D9EkPnld dGFibGU+PHRhYmxlIHdp ZHRoPScxMDAlJyBzdHls PR0fXh3xEDSsDRFl iKptcQYyTyQmt2afWHQc FLwuIZ2tbLrcV2QioEH1 BHIhg2t0Fx76O55xO3Dj dXA+VDOykMB7kRC0 xA1bPtJfGnX5HCedZ274 YaEqpGVlVgmxv1ixv0zu xTq8WsM5VBItjjYywNiz AYD0j0KgMx04Z52n IHdpZHRoPSIxNSUiIHZh mLsflu6ciP6nPt2+PGNv mZY6rGP4uS1tBaIrGmV0 IBviX354RmOwdFLh Vecag6gyy1glzLo1DcZo FFZywdNvtEujEMA9k1Hx Bt89J9ZciPrxv6UlZxz2 ot15iAZpy7K9tCS8 B9OyLYNuhfucoNAoxUzk XI3iZZNkfaduZJYlaM7e WBJfN3n1EvWsXgC8HPou N8ByrxJ3CPKhfQDs TAoeBZE7V83lz4C2POXx HKRsYCK0uYQ0mV8bxQgn bjogbGVmdDsgdmVydGlj YUkaKThaV738FXJi aIxoASWrnF2zUICwmRGr jNbgVG6vTXCddikhTg0P XC9zQZXPU6BUNN69JP41 yZWud2R8iIQ4G0Aw YMQquvowtnssnPR7RBTx TREijQ91vSLxDJwbGi2i r2K2h388QBWxQPEbmU13 Jb3evWsyOYLqdTQQ iF2ecqcay1awymtcKcIy QJBuWVs0ASj2MMBwiCgj OhNmYCX6CrD2CJY5rYXp aU7wbQfbfkkonJ9b Oyc+PWqgEFmxFBo5UAud dGQ+IHOzYFH6vLctSLzi TAHqgY2pFSNtS1g9SnCb VsA2ODktN8PnCJZk hourUt67dS3qWeVrXkQ5 QMuoW4IvbpD1ZVQjuHKu CXdhMVU2B97jf4C8VAKi PLWdZFC9oJV6gW5c bGlnbjogbGVmdDsgdmVy nYdkSDeaLHwcA933GODs uLyhHrA4DBqqRHMqBQ28 WN88bSDxm8C8nTB8 T3GsGIHydxpanawruQH4 APGgETWynD82qIRxTMoq Tm7ki3Q8z081FPNtXWGv lW87Yk4yiJcdYMVd zHCFaX7tpbytc3hugdvz PvIaPAUrRAz4LFc5DMUm lAuzDpClFGH3QzN1PDK4 sFIcaP0zdMxmhfec gK7pEow+TWFsZTwvdGQ+ QMBpFUD9pQpeQDnjZKWh bY5gIQAgY1r8InQcIxY7 XMpvW3IrOOKmdsds Wa95cX2oDbNzAaK5HXps Y1GileN9AHJdqUWyCMqz TGH2S18ac4R9ZIJbCXDm KTI0xLF5yX6hzIji bjogbGVmdDsgdmVydGlj EMmlUMouC791MRYbuUez BkasAdARte1gYC2tPefs dGQ+SN84wb85C3Oo QixlRms1MLVhLYY2cYN6 nN6bKJSfYXwew8O7aBE9 Y5BxqvYtmz6nb2yqGZVw UHonG50oxVQad3U5 QHWssRH7JWWxlHkkYmIs bD10Dxh+SZEsfDnxr8Kz Eojcf5iam4fcfNg0GsKx JSIgdmFsaWduPSJ0 w0FjSz58R06pQEmaIBFw GBQrNQDgGUHtfRuypz3y tY8bTg6+ZZFdvAP6lRQ5 bM0pNdTwSlR1CCrt I928EePlaAVaVybhy4ci g5urhPs6SqWaICOzknZl yWwnNFY9a6ZvMy66R1Um pHjtd2JdSlg6sb44 wKIxa7L3mVW6F3VzOMEu cvgkwNAltGpgZH3iPFMp mfkeOBWrwV3rIPVcW1d1 NfFnNeW3QBlqS4Yj upP0AAAczXYhRFHwmKKZ dL3vimjti9ehqhycUoSv RHXyLPh3TZu5VFFqcTft SnDwBFF2QzN0VPY7 tBFulJ6mnWgardwzbI7d Oyc+OTd8b3zurDPtRZ2n tOK2CK81VZ81lEBhs7J0 oQG7V0PiNWLeykwz cfwsiIW9SGHxPFAbdR75 Lj2uuTazZv8wRXYgLUS4 TWNmaCPxF3ZzsO9fCaCg IUTkMQMvK7ShtJRp BAayA315LYlmHoO9PLHl prUxQ9MqGPQmzOsbFaP7 u9T4Ta2JLK50TV08YW68 aURoj6A8tWI0G2Ft USFevyvupwbtdWD8ERMg TKVxiR28Vs6xiDwmVw6f HNAtNXN6DCFrrPHtF8Eh gA4hEvVlIYOqSSBl H5DgsHIsNBfmU840FVes LcI2MLDlmwBfD4FzZKTo zKuvFaF8q3L3Wv0JJf75 MZ37PP33cVDir5G1 yCF8E9AsJRPoeviizjtg wSE9CYTpKGTyhE16Wt5s zFurHa3pGGObOBO1LXRl wANgS4FpkN4cXoLl VJBjQAZaK7WwrCXvCEnl G742WGwqJsN0ZCCatsYl B0PlUZYfeKnwDiT5c1W4 Gh6YELsvjig9H2Fp PjwvdHI+JD79UYMtZK80 zURniLDvt3jzgVn4ZmMo GLFvNYP3pPqiKOqxm0Qv PZXjV18xeGPbb2E5 IGNv (more content not included)... Normal [facility] Outside Colonoscopyon 2021 Outside Colonoscopy [id number] #2.00CD:127 [facility] Physician Orderon 01-28-2022 Physician Order [id number]#1.00CD:127 [facility] Consent for Procedure/Surger yon 01-15-2022 Consent for Procedure/Surgery [id number] 2#1.00CD:127 [facility] Ambulatory Visit Summaryon 0 01-14-2022 Ambulatory [...] PHYSICIAN INSTRUCTIONS. PRIOR TO COLONOSCOPY. [facility] Unchanged aspirin Contact prescribing physician [...] physician if questions or concerns Pharmacy Information [facility] [phone], [place] [phone] Medications and Immunizations Administered Not Given influenza [...] including vitamins, herbs, eye drops, creams, and vbce-lov-iyyerxc medicines. ? Any problems you or family [...] loose stools (more content not included)... Normal [facility] Gastroenterology Office/Clin ic Noteon 01-14-2022 Gastroenterology [...] E&M of New Patient Low 30-44 Min 26434 2. Family history of polyps in the colon (Z83.71: Family history of colonic polyps) Same as above plan of care. See #1. Ordered: Colonoscopy (Hospital Procedure) E&M of New Patient Low 30-44 Min 90673 Orders: polyethylene glycol 3350 with electrolytes, See [...] Not Given Parent Or Guardian Refuses Normal [facility] Comment on above: Result Comment: Elec [...] including vitamins, herbs, eye drops, creams, and cvys-tye-ojtudup medicines. ? Any problems you or family [...] air t (more content not included)... Normal [facility] Pre-Authorization for Medica l Treatmenton 01-14-2022 Pre-Authorization for Medical Treatment [id number]# 1.00CD:127 Normal [facility] Physician Referralon 022 Physician Referral [id number] #1.00CD:127 Normal [facility] Glycohemoglobin (HGB A1C) Román fentonvon 01-26-2019 Hemoglobin A1c/Hemoglobin.total mass fraction (Bld) 5.3 % Normal [facility] Comment on above: Result Comment: Bernice kamara [...] Calcium mass conc 8.7 mg/dL Normal 8.5-10.6 [facility] Chloride molar conc 107 mmol/L Normal 98-107 [facility] CO2 molar conc 28 mmol/L Normal 21-32 [facility] Creatinine mass conc 0.97 mg/dL Normal 0.70-1.30 [facility] Glucose mass conc 129 mg/dL High 74-106 [facility] Potassium molar conc 4.1 mmol/L Normal 3.5-5.1 [facility] Sodium molar conc 144 mmol/L Normal 136-145 [facility] Urea nitrogen mass conc (BldV) 13 mg/dL Normal 7-18 [facility] Urea nitrogen/Creatinine mass ratio 13 mg/mg Normal [facility] CBC with Differentialon Basophils #/vol (Bld) 0.0 thou/mcL Normal 0.0-0.2 M [facility] Basophils/100 WBC (Bld) 0.4 % Normal 0-3 [facility] Differential cell count method Nom (Bld) AUTOMATED DIFFERENTIAL Normal [facility] Eosinophils #/vol (Bld) 0.1 thou/mcL Normal 0.0-0.4 [facility] Eosinophils/100 WBC (Bld) 2.1 % Normal 0-7 [facility] Erythrocyte distribution width Entitic volume (RBC) 13.9 % Normal 11.7-15.0 [facility] Hematocrit Volume Fraction (Bld) 41.3 % Normal 34.0-50.0 [facility] Hemoglobin mass conc (Bld) 13.5 g/dL Normal 11.5-17.0 [facility] Lymphocytes #/vol (Bld) 1.2 thou/mcL Normal 0.7-4.5 [facility] Lymphocytes/100 WBC (Bld) 25.2 % Normal 14-46 [facility] MCH Entitic mass (RBC) 28.5 Picograms Normal 27.0-34.0 [facility] MCHC mass conc (RBC) 32.8 g/dL Normal 32.0-36.0 [facility] MCV Entitic volume (RBC) 87.0 fL Normal 80-98 [facility] Monocytes #/vol (Bld) 0.2 thou/mcL Normal 0.1-1.0 M [facility] Monocytes/100 WBC (Bld) 5.2 % Normal 4-13 [facility] Neutrophils #/vol (Bld) 3.2 thou/mcL Normal 1.5-7.8 [facility] Neutrophils/100 WBC (Bld) 67.1 % Normal 40-74 [facility] Platelet mean volume Entitic volume (Bld) 9.1 fL Normal 7.5-11.2 [facility] Platelets #/vol (Bld) 253 thou/mcL Normal 140-415 M [facility] RBC #/vol (Bld) 4.74 x(10)6/mcL Normal 3.80-5.60 [facility] WBC #/vol (Bld) 4.8 thou/mcL Normal 4.0-10.5 [facility] Partial Thromboplastin Time (aPTT)on 01-25-2019 aPTT Coag time (PPP) 33 Sec Normal 24.4-37.5 [facility] Prothrombin Timeon 9 INR Coag RelTime (Bld) 1.0 {INR} Normal 0.8-1.2 Mo [facility] Comment on above: Result Comment: CATARINA MORIN THE INDUCTION PHASE OF ORAL ANTICOAGULATION, THE INR MAY NOT REFLECT THE ANTICOAGULANT STATUS OF THE PATIENT. THERAPEUTIC RANGES FOR INR'S ARE: MOST CLINICAL SITUATIONS: INR 2.0-3.0 MECHANICAL PROSTHETIC VALVES: INR 2.5-3.5 CRITICAL: INR 5.0 Prothrombin time (PT) Coag time (PPP) 10.9 Sec Normal 9.4-12.5 [facility] Vital Signs Date Time Vital Sign Value Performing Clinician Facility 04-22-2024 14:06-0400 Body height 175.26 cm [facility] 04-22-2024 14:06-0400 Body mass index (BMI) [Ratio] 24.7 kg/m2 [facility] 04-22-2024 14:06-0400 Body weight 76.2 kg [facility] 04-22-2024 14:06-0400 Diastolic blood pressure 84 mm[Hg] [facility] 04-22-2024 14:06-0400 Heart rate 83 /min [facility] 04-22-2024 14:06-0400 Respiratory rate 12 /min [facility] 04-22-2024 14:06-0400 Systolic blood pressure 125 mm[Hg] [facility] 02-26-2024 10:26-0400 Body height 175.26 cm [facility] 02-26-2024 10:26-0400 Body mass index (BMI) [Ratio] 24.2 kg/m2 [facility] 02-26-2024 10:26-0400 Body weight 74.44 kg [facility] 02-26-2024 10:26-0400 Diastolic blood pressure 93 mm[Hg] [facility] 02-26-2024 10:26-0400 Heart rate 73 /min [facility] 02-26-2024 10:26-0400 Respiratory rate 12 /min [facility] 02-26-2024 10:26-0400 Systolic blood pressure 143 mm[Hg] [facility] 12-22-2023 10:45-0500 Body height 175.26 cm Sean Ball Other [facility] 12-22-2023 10:45-0500 Body mass index (BMI) [Ratio] 24.51 kg/m2 Sean Ball Other [employer] Other 12-22-2023 10:45-0500 Body weight 75.3 kg Sean Ball Other [facility] Other 12-22-2023 10:45-0500 Body weight 75.29 kg [facility] 12-22-2023 10:45-0500 Diastolic blood pressure 80 mm[Hg] Sean Ball Other [facility] 12-22-2023 10:45-0500 Respiratory rate 12 /min Sean Ball Other [facility] [employer] Other 12-22-2023 10:45-0500 Systolic blood pressure 130 mm[Hg] Sean Ball Other [facility] 08-31-2023 09:30-0400 Body height 175.26 cm Sean Ball Other [employer] Other 08-31-2023 09:30-0400 Body mass index (BMI) [Ratio] 22.21 kg/m2 Sean Ball Other [employer] [employer] Other 08-31-2023 09:30-0400 Body weight 68.22 kg Sean Ball Other [employer] [employer] Other 08-31-2023 09:30-0400 Diastolic blood pressure 79 mm[Hg] Sean Ball Other [employer] Other 08-31-2023 09:30-0400 Respiratory rate 12 /min Sean Ball Other [employer] [employer] Other 08-31-2023 09:30-0400 Systolic blood pressure 120 mm[Hg] Sean Ball Other [employer] Other 12-15-2022 15:45-0500 Body height 175.26 cm Sean Ball Other [employer] [employer] Other 12-15-2022 15:45-0500 Body mass index (BMI) [Ratio] 25.25 kg/m2 Sean Ball Other [employer] Other 12-15-2022 15:45-0500 Body weight 77.57 kg Sean Ball Other [employer] Other 12-15-2022 15:45-0500 Diastolic blood pressure 76 mm[Hg] Sean Ball Other [facility] Other 12-15-2022 15:45-0500 Respiratory rate 12 /min Sean Ball Other [facility] [employer] Other 12-15-2022 15:45-0500 Systolic blood pressure 122 mm[Hg] Sean Ball Other [facility] [employer] Other 11-28-2022 15:45-0500 Body height 175.26 cm Sean Ball Other [facility] [employer] Other 11-28-2022 15:45-0500 Body mass index (BMI) [Ratio] 24.98 kg/m2 Sean Ball Other [employer] Other 11-28-2022 15:45-0500 Body weight 76.75 kg Sean Ball Other [facility] Other 11-28-2022 15:45-0500 Diastolic blood pressure 78 mm[Hg] Sean Ball Other [employer] Other 11-28-2022 15:45-0500 Respiratory rate 12 /min Sean Ball Other [employer] Other 11-28-2022 15:45-0500 Systolic blood pressure 122 mm[Hg] Sean Ball Other [employer] Other 02-12-2022 14:50-0400 Blood Pressure Location Esme Lopez [facility] 02-12-2022 14:50-0400 Diastolic blood pressure 84 mm[Hg] Esme Fishermetz [facility] 02-12-2022 14:50-0400 Heart rate 66 /min Esme Lopez [facility] 02-12-2022 14:50-0400 Respiratory rate 16 /min Esme Lopez [facility] 02-12-2022 14:50-0400 Systolic blood pressure 118 mm[Hg] Esme Lopez [facility] Encounters Encounter Date Encounter Type Care Provider Facility Start: 04-22-2024 End: 04-22-2024 ambulatory [facility] Work Phone: Start: 04-22-2024 End: 04-22-2024 Patient encounter procedure [facility] Work Phone: Start: 03-15-2024 End: 03-16-2024 ambulatory CESAR MARCH Not Available Start: 02-26-2024 End: 02-26-2024 ambulatory [facility] Work Phone: Start: 02-26-2024 End: 02-26-2024 Patient encounter procedure [facility] Work Phone: Start: 01-04-2024 End: 01-04-2024 ambulatory Sean Garcia Other [facility] [employer] Other Start: 01-04-2024 Telephone encounter Sean Garcia [facility] Start: 01-01-2024 End: 01-02-2024 ambulatory SEAN GARCIA Not Available Start: 12-24-2023 End: 12-24-2023 ambulatory Sean Garcia Other [facility] [employer] Other Start: 12-24-2023 Telephone encounter Sean Garcia [facility] Start: 12-22-2023 End: 12-22-2023 ambulatory Sean Garcia Other [employer] Other Start: 12-22-2023 Office outpatient visit 15 minutes Sean Garcia [facility] Start: 12-22-2023 End: 12-22-2023 Patient encounter procedure [facility]- Start: 09-17-2023 End: 09-17-2023 ambulatory Sean Garcia Other [facility] [employer] Other Start: 09-17-2023 Telephone encounter Sean LOMBARDI [facility] Start: 09-07-2023 End: 09-07-2023 ambulatory Sean Garcia Other [facility] [employer] Other Start: 09-07-2023 Telephone encounter Sean Garcia [facility] Start: 08-31-2023 End: 08-31-2023 ambulatory Sean Garcia Other [employer] Other Start: 08-31-2023 Encounter for genera l adult medical examination without abnormal findings Sean Garcia [facility] Start: 08-31-2023 Periodic preventive med est patient 40-64yrs Sean Garcia [facility] Start: 07-18-2023 End: 07-18-2023 ambulatory Sean Garcia Other [facility] [employer] Other Start: 07-18-2023 Telephone encounter Sean LOMBARDI [facility] Start: 04-03-2023 End: 04-04-2023 ambulatory NARENDRANATH LAKSHMIPATHY . Facility: Start: 03-10-2023 End: 03-10-2023 ambulatory NARENDRANATH LAKSHMIPATHY . Facility:[facility] Start: 02-24-2023 End: 02-24-2023 ambulatory GABRIELAJESSE AUSTINMIFLEX . Facility:[facility] Start: 01-22-2023 End: 01-23-[address] AMPARO KULKARNI . Facility:[facility] Start: 01-07-2023 End: 01-07-2023 ambulatory Sean Garcia Other [facility] Other Start: 01-07-2023 Telephone encounter Sean LOMBARDI [facility] Start: 01-06-2023 End: 01-06-[address] AMPARO KULKARNI . Facility:[facility] Start: 12-25-2022 End: 12-26-[address] AMPARO KULKARNI . Facility:[facility] Start: 12-15-2022 End: 12-15-2022 ambulatory Sean Garcia Other [facility] Other Start: 12-15-2022 Office outpatient visit 15 minutes Sean Garcia [facility] Start: 12-15-2022 Telephone encounter Sean LOMBARDI [facility] Start: 12-02-2022 End: 12-02-[address] AMPARO KULKARNI . Facility:[facility] Start: 11-28-2022 End: 11-28-2022 ambulatory Sean Garcia Other [facility] Other Start: 11-28-2022 Office outpatient visit 15 minutes Sean Garcia [facility] Start: 11-28-2022 Telephone encounter Sean LOMBARDI [facility] Start: 08-05-2022 End: 08-06-[address] AMPARO KULKARNI . Facility:[facility] Start: 08-05-2022 End: 08-06-[address] AMPARO KULKARNI . Facility:[facility] Start: 02-12-2022 End: 02-12-2022 Patient encounter procedure Esme Lopez [facility] Start: 01-26-2019 End: 01-26-2019 Patient encounter procedure AV BUSTAMANTE Facility[place] Procedures Date Procedure Procedure Detail Performing Clinician Start: 02-22-2016 General examination of patient Sean Garcia Other Plan of Treatment Date Care Activity Detail Author Start: 02-26-2024 Patient referral [facility] Work Phone: Patient referral [facility] Work Phone: Immunizations Immunization Date Immunization Notes Care Provider Robert curry 08-31-2023 influenza, injectable, quadrivalent, preservative free Sean Garcia Other [facility] 10-01-2020 influenza virus vaccine, split virus (incl. purified surface antigen) Sean Garcia Other [facility] Other 10-01-2020 influenza virus vaccine, unspecified formulation [facility] 01-05-2016 tetanus toxoid, reduced diphtheria toxoid, and acellular pertussis vaccine, adsorbed Sean Garcia Other [facility] 12-24-2015 diphtheria, tetanus toxoids and acellular pertussis vaccine, unspecified formulation Sean Jose Other [facility] 12-25-2011 diphtheria, tetanus toxoids and acellular pertussis vaccine, unspecified formulation Sean Garcia Other [facility] NEGATED: Highlighted row has not occurred!02-12-2022 influenza virus vaccine, unspecified formulation Esme Lopez [facility] NEGATED: Highlighted row has not occurred!01-14-2022 influenza virus vaccine, unspecified formulation Esme Lopez [facility] Payers Date Payer Category Payer Unknown [id number] 2.16.8 [id number] 1965 Unknown [id number] 2.16.84 [id number] 1964 Unknown [id number] 2.16.84 0.1.923558.3.579.2.593 1964 Unknown [id number] 2.16.84 0.1.409229.3.579.2.593 1964 Unknown [id number] 2.16.84 0.1.388681.3.579.2.593 1964 Unknown [id number] 2.16.84 0.1.469225.3.579.2.593 1964 Unknown [id number] 2.16.84 0.1.375736.3.579.2.593 1964 Unknown [id number] 2.16.84 0.1.542901.3.579.2.593 1964 Unknown [id number] 2.16.84 0.1.303476.3.579.2.593 1964 Unknown [id number] 2.16.84 0.1.159835.3.579.2.593 1964 Unknown [id number] 2.16.84 0.1.085742.3.579.2.1259 1964 Unknown [id number] 2.16.[address] [facility] Blue Shield [id number] 1960 Private Health Insurance [id number] Self-pay Self Pay [id number] Unknown [facility] [id number] Social History Date Type Detail Facility Start: 02-12-2022 End: 12-22-2023 Tobacco smoking status Never smoked tobacco (finding) [facility] Sex Assigned At Male [facility] Start: 1965 Sex Assigned At Male [facility] Clinical Notes 02-12-2022 to 12-24-2023 Note Date & Type Note Facility 12-24-2023 Evaluation note Encounter Date Diagnosis Assessment Notes Dec, Nocturnal headaches (ICD-10 - R51.9) [facility] Other 01-30-2024 Evaluation note* Encounter Date Diagnosis [...] to go to ER for suspicious symptoms [facility] Other 10-09-2023 Evaluation note* Encounter Date Diagnosis [...] (ICD-10 - Z12.5) Yearly JAN and PSA [facility] Other 03-02-2023 NoteCONSULTATION CONSULTATION DATE: 01/22/2023 HISTORY: [...] q.h.s. Patient does agree with this plan.[id number] Note CONSULTATION CONSULTATION DATE: 12/25/2022 HISTORY OF [...] be followed up in the clinic thereafter.[id number] Evaluation [facility]* Encounter Date Diagnosis Assessment Notes Treatment Notes Treatment Clinical Notes Nov, Acute salpingitis of right eustachian tube (ICD-10 - H68.011) Yawn, chew gum, sudafed as well as prescribed medication Nov, Non-recurrent acute serous otitis media of right ear (ICD-10 - H65.01) Initiate antibiotics [facility] Other 01-06-2023 Evaluation note* Encounter Date Diagnosis [...] (ICD-10 - N52.01) Sildenafil tolerated and beneficial. [facility] Other 09-13-2022 NoteCONSULTATION CONSULTATION DATE: 08/05/2022 CHIEF [...] would like to progress. CC: Sean Garcia D.O.[facility]03-23-2022 Hospital Discharge instructions Patient Education 02/12/2022 [...] 08/05/2005 Document Revised: 02/24/2019 Document Reviewed: 02/24/2019 [employer] Patient Education 2020 [email or web address]. Follow Up Care 01/29/2022 13:30:30 With:Esme Lopez CNP Address: When:1 year only if needed [facility] Evaluation + Plan note No data available for this section [facility] Evaluation noteNo InformationNort [employer] Other Evaluation noteNo assessment information available [facility] Work Phone: Evaluation note* Diagnosis Onset Date Resolution Status Cervical spondylosis acute Hypnic headache acute [facility] Work Phone: [facility] general Narrative - Reported* Type Description Date [...] right thumb Hospitalization History see surgical history [facility] Other [facility] general Narrative - Reported* Type Description Date [...] Colonoscopy 04/2021 Hospitalization History see surgical history [facility] Other [facility] general Narrative - Reported* Type Description Date [...] years) 01/2022 Hospitalization History see surgical history [facility] Other Reason for referral (narrative)* Reason 03/18/23 Referral for plugged right ear Diagnosis 1 Acute salpingitis of right eustachian tube (H68.011) Referral Organization [facility] Referring Provider First Name Sean Referring Provider Last Name Jose Referring Provider Specialty Internal Me dicine Referred Organization [facility] Referred Provider MaryAmie Referred Address ,[place], [place],[address] Referred Provider Specialty Ear, Nose an d [...] being referred for further evaluation and treatment. [facility] Other Summary Purpose Family History Relationship Condition [...] section and content) DATE CREATED AUTHOR 01/28/2019 [facility] DATE CREATED AUTHOR AUTHOR'S ORGANIZ ATION [facility]2022 [facility] DATE CREATED AUTHOR AUTHOR'S ORGANIZ ATION 04/04/2023 [facility] DATE CREATED AUTHOR AUTHOR'S ORGANIZ ATION 03/20/2024 [facility] EPIC REASON FOR VISIT (unrecogniz [...] BE BASED ON THE PRIMARY CLINICAL RECORDS. [employer] [facility]. provides no warranty or guarantee of the accuracy or completeness of information in this document.
[2024-08-23 06:45] VITALS: BP 133/93; PULSE 79; TEMP 36.8; O2SAT 99
[2024-08-23 07:28] VITALS: BP 148/93; PULSE 87; O2SAT 97
[2024-08-23] MEDS: BUPIVACAINE HCL 0.25% PF 25 MG/10 ML VIAL 4 ML INJ (07:28)
[2024-08-23 07:29] VITALS: BP 152/100; PULSE 88; O2SAT 96
--- NOTE | 2024-08-23 08:33 | P.ON_ITS ---
Date of procedure: 08/23/24 Pre-op diagnosis: Thoracic spondylosis Post-op diagnosis: same as pre-op Procedure: Right Thoracic 09/02, 10/04 medial branch block Under fluoroscopic guidance Solution injected: 2millilitersMarcaine 0.25% Anesthesia :none Immediate complications none Time out process compliant After informed consent obtained from the patient placed in the Prone proposition . area was prepped and draped in a sterile fashion using Cloraprep .25 gauge spinal needle inserted over each of the above mentioned target areas . [place] were directed towards the target under fluoroscopic guidance . after encountering each of the targets , no indication of intravascular intraneuronal or intrathecal needle tip placement. Then 0 .5 to 1 Milliliter was injected at each level. [place] removed postoperatively. patient transferred to recovery in stable condition to be discharged home after meeting criteria Anesthesia: Local Surgeon: Fransico Salvador Condition: stable
== END 2024-08-23 07:36 | disposition home or self-care (01) ==
PROVIDERS: PCP Internal Medicine; Visit Provider Anesthesiology Pain Medicine
DX: M47.814 Spondylosis without myelopathy or radiculopathy, thoracic region (principal)
CPT/HCPCS: 64490; 64491; J0665

== ENCOUNTER 2024-08-24 14:33 | Outpatient (OUT) | payer BC, SELFPAY ==
--- NOTE | 2024-08-24 15:01 | P.CN_ITS ---
Consult Note: HPI Data of Consult Patient: known to practice within the last 3 years Requesting Physician: Radha Cordova NP Primary Care Provider: Sean Garcia DO Consult Narrative Reason for consult: f/u Narrative: Fran Lundy a pleasant 58 year old male presents for evaluation and management of back pain. Patient has a hx of multilevel thoracic pain that has responded well to facet joint RFAs at numerous levels in the past. Patient reporting pain throughout thoracic spine. patients pain today 2/10 aching pain today increasing to 8/10 at times. Patient found significant benefit to steroid pack he was on previously for right elbow pain. Patient has been utilizing ibuprofen 400mg PRN without improvement, mild improvement from baclofen 10-15mg HS. Patient noticing more difficulty sleeping. Recent thoracic MRI unremarkable and thoracic Xray mild degenerative changes. recently underwent right T10/11 T11/12 MBB #1 with 80% improvement in pain and functional ability for 1 day. cc:: CC: Radha Cordova NP Review of Systems ROS Status of ROS 10 or more systems reviewed and unremark able except as noted in history and below Musculoskeletal Reports: back pain PFSH PFSH Surgical History S/P total hip arthroplasty ?Z96.649 - Presence of unspecified artificial hip joint (ICD-10) Meds Home Medications and Allergies Home Medications ?Medication ?Instructions ?Recorded ?Confirmed ?Type aspirin 81 mg capsule 81 mg PO DAILY 04/28/23 08/23/24 History baclofen 10 mg tablet 10 mg PO .hs 04/28/23 08/23/24 History calcium carbonate (Calcium 600) 600 mg PO BID 04/28/23 08/23/24 History glucosamine ILd-R0-Kekuovnis 1 tab PO DAILY 04/28/23 08/23/24 History roxanna 1,500 mg-400 unit-100 mg tablet (Osteo Bi-Flex (5-Loxin)) multivitamin 1 tab PO DAILY 04/28/23 08/23/24 History omega-3 fatty acids-fish oil 360 1 cap PO DAILY 04/28/23 08/23/24 History mg-1,200 mg capsule (Fish Oil) testosterone cypionate .ROUTE .every 2 weeks 04/28/23 History vitamins-lipotropics tablet 1 tab PO DAILY 04/28/23 08/23/24 History amlodipine 2.5 mg tablet mg 08/23/24 History Allergies Allergy/AdvReac Type Severity Reaction Status Date / Time No Known Drug Allergies Allergy Verified 08/23/24 06:49 Exam Constitutional Documenting provider has reviewed patient's vital signs: yes Common normals: no apparent distress, oriented x3, healthy appearing, alert and well nourished General appearance: cooperative HENMT Common normals: normocephalic, hearing grossly normal bilaterally and moist oral mucous membranes Head and scalp: normocephalic Eye Common normals: PERRL Pupil: PERRL Neck & C-Spine Common normals: full ROM General: normal visual inspection Chest Common normals: inspection of chest normal Respiratory Common normals: normal respiratory effort, no retractions and no use of accessory muscles Back & Pelvis Thoracic spine/upper back: normal to inspection, thoracic ROM normal, pain with ROM, paraspinal muscle tenderness and paraspinal muscle spasm Lumbar spine/lower back: normal to inspection and lumbar ROM normal Other: facet pain as noted below in T7-12 areas, increase in right parathoracic myofascial tenderness and spasms. intermittent increase in myofascial pain over bilateral scapulae Extremity Common normals: normal to inspection and full ROM Neuro Common normals: oriented x3, CN's II-XII intact bilaterally, moves all extremities, no focal motor deficits, no sensory deficits noted, deep tendon reflexes 2+ bilaterally and gait normal Sensorium/orientation: alert Motor exam: strength 5/5 throughout and no movement abnormalities noted Psych Common normals: mental status grossly normal, thought process normal, cooperative, affect normal, speech normal and activity/motor behavior normal Speech: normal speech Thought process: normal thought process Assessment and Plan Assessment and Plan (1) Thoracic spondylosis: (2) Lumbar back pain: (3) Lumbar spondylosis: (4) Muscle spasm: Plan proceed with right T10-11 T11-12 MBB #2 working towards RFA could consider botox or referral to [facility] to discuss peripheral field stim or intrathecal pump for widespread thoracic pain and myofascial dystonia pt to f/u with Dr Salvador to further discuss plan of care after MBB#2
== END 2024-08-24 14:34 | disposition home or self-care (01) ==
PROVIDERS: PCP Internal Medicine; Visit Provider Nurse Practitioner
DX: M47.814 Spondylosis without myelopathy or radiculopathy, thoracic region (principal); M54.50 Low back pain, unspecified; M47.816 Spondylosis without myelopathy or radiculopathy, lumbar region; M62.838 Other muscle spasm
CPT/HCPCS: G0463

== ENCOUNTER 2024-09-06 06:43 | Day surgery (SDC) | payer BC, SELFPAY ==
--- OUTSIDE RECORDS SUMMARY | 2024-09-06 06:45 | XMS_ITS | CCD ---
Author Organization [facility] CliniSyny Care Team Providers Care Electrical Inspector Name Role Phone AV BUSTAMANTE Attending Unavailable SEAN GARCIA Primary Care Unavailable IGNACIA SCOTT Primary Care Physician Sean Garcia SHAD ., DR AMPARO aVlentine Admitting Unavailable KULKARNI ., DR AMPARO Valentine [...] Unavailable JOSE, DR BHAKTA Primary Care Unavailable KULAKRNI ., DR AMPARO Valentine Consulting Unavailable MARTELL [...] or physicia Propensity to adverse reactions Comment:Done [facility] Other Medications Current Medications Medication Drug Class(es) [...] / neomycin 3.5 mg/ml / polymyxin b 63612 unt/ml otic suspension (14 sources) Aminoglycoside Antibacterial, Polymyxin-class Antibacterial, Corticosteroid Neomycin-Polymyxin -HC 3.5-42691-9 4 drops Otic Three times a day for 7 days Not-Taking/PRN lisinopril 5 mg oral tablet (2 sources) Angiotensin Converting Enzyme Inhibitor Start: 09-12-2017 End: 10-12-2017 take 5 mg by mouth once daily Lisinopril Discontinued 5 MG PO Daily September 12, 2017 12:00am October 12, 2017 1:03am Yfgvhsbpmojy-Oxhp-Qo lic Acid (Centrum) 18-400 mg-mcg Tablet (2 sources) Start: 09-11-2017 End: 02-25-2024 take 1 tablet by mouth once daily Multivitamin-Iron- Folic Acid (Centrum) 18-400 mg-mcg Tablet Discontinued 1 TAB PO Daily September 11, 2017 12:00am February 25, 2024 10:26am [place] 5-Cij-Fsw-Fish Oil (Fish Oil) 900-1,400 mg Capsule,Delayed Release(Dr/Ec) (2 sources) Start: 09-11-2017 End: 02-25-2024 [place] 3-Bqj-Ndf-Fish Oil (Fish Oil) 900-1,400 mg Capsule,Delayed Release(Dr/Ec) [...] by: NINA SOLIS Date: 2022-08-07 15:39 Normal [facility] Reminderson 04-08-2022 Reminders - From: Justin Larry To: [facility] - Reminders/Recalls; Sent: 04/08/2022 18:13:16 EDT Show up: 12/24/2026 18:13:00 EST Subject: Ambulatory Reminder - 5 year colon recall Due Date/Time: 01/28/2027 18:13:00 EST Reminder/Recall Repeat colonoscopy in 5 years (2026) due to polyps Normal [facility] Ambulatory Visit Summaryon 0 3-23-2022 Ambulatory [...] colono (more content not included)... Normal [facility] Gastroenterology Office/Clin ic Noteon 02-12-2022 Gastroenterology Office/Clinic [...] Not Given Parent Or Guardian Refuses Normal [facility] Comment on above: Result Comment: Elec [...] 08/05/2005 Document Revised: 02/24/2019 Document Reviewed: 02/24/2019 [facility] Patient Education ? 2019 [employer] [facility] Coding Summary.on 02-03-2022 Coding Summary. CD:[id number] Gh0bWw+PGhlYWQ+PE1FV NUpI67ieVKzmH0NC9iQU J5BQSFKTNNTCT3IQV5jg RE0QGspT8ZcceLf EvhbdLKmYL57JBe0TJA3 hQqqLJcqjO0dhWSkL7l3 WeEqYH93nH07YJvmFYPt McY0VvWecbhtmDEe A2llCoLuuLVfCmz+PHRh YmxlIHdpZHRoPScxMDAl LxEcwAxvEL7iVf2lWBKt LWNvbGxhcHNlOiBj p7qrDBFxJDghMX7lcArc H7FpeRV3RBKbw6e4Ia91 dHI+VBGyYYQ6mWcqJWto p409BsZvk4rxOCE1 tWKxEBitRUA1V22dj3M4 DFUkEHDqPPA4bCY1rC8m xBetbmpeA3OwhOMuXiH4 CHH6nIZtqN9kiWgj osxdyM7lErq+A83QHG1V SYUVNC7DGoa4P0FlKlri dHI+TO50DMXwNB33qCKf fRExy1himJi1XrGn BMQxZDP5aUgeUOxfv5Tb MWXrQ37fuLMwv1O9LSQs lTyfrUUdSyHxnLQ4kE2i UDnzpctuy6yymdrr Ldasr0qumn85aR66D91p UKatVPVjBND0FIUnCFAp jXjuth5puX4tWw3+IDxj l6ezf4pljFt5SvQx FVQmylGuvBofHBO8h7Kq Jg50X4RklGzpa0XoLme8 wf53zTTcl6W7tTQ7SIcf WAZsjJ5yNEhpRrO6 SECkQdYxhE91yPWvFXsx Ff5cjDzgkZzlZN4dUDUb fkpdVFAwcL3aJOJfzQBe bYwzJB5hVCQkptpq m050MgFaHCR7YENfvFFt B3UwjM5zCwCwQLCdHINo T5MobPOtZEjdW481VUoo VfD2OQXzbnYoD8Pa FNBxqBojCmH8i6P3Oo8B y8EsxmaoKMO9AOxvWKHv LcK2DxMeImF7A2PtFpf8 YTKdeMirTY0rJ8Da XKYnqvwclllyhIM6SHAj IVSihH55hMDbSMegMw7p d4M1f649IGMaUKOlrN84 Bw5baEdmRXOrjAWW rW4elrffy9uykxyqWsNf DKUrKVf6JEz6UMAnmMks JuGzIQX9LuD6VUC4sXEw jA2qvNjzxhpwxP5r Oyc+Z23zgQ1jSMO2FFV9 zoknRFDcogWvVK63TT38 X5ZrGeppfNWexPH+PGRp myBoiZuxJT4kQrFj y0ana2AdOVtgE5YzSLLi VWtnVjg7OZIjPHX2zYT8 wT0lJSFiLGgzq1Z5qHL3 Z0QqmrUzmr8cv0tg EFEcXPlfX03buDOfs8B6 CXXriPR4BCBvxMkbVzVq yI58Oxj+SYBkdYldv4Ur Ndeuf7nvp1spbYq0 IjMwJSIgdmFsaWduPSJ0 i0RtTd23B58jHMygJAPt BZHfZUCuLYVmhCnqnu4g aA1tRl9+PGNvbCB3 rGL0pG4iAMYkKlE9PKjf B156CmXtvRByUokkw7yv j1vyjXl3GvToHYJtybBo lLszZIR9z1RhEj08 R97eDIueUIThIPWzEVPe BYBeaRmhlo5dgH0aVy0+ CI6jm3vlbi35xD25rWS+ JRUePLB9fKhjAGcz OJTkoF3rJQjmZiX3BJKt XuDcdY31tVIuJAlrGc3s dSiteOjpXZ6tRSJqfaay w830CuQby5czIJPr aRImJRlaKCO6R64sf7O4 MZLjURNgCPZ0gOZ7oE3g bGlnbjogbGVmdDsgdmVy cTizNUskKHekE762 IHRvcDsnPlBhdGllbnQg YgNsPGu6U5DoYao0TFTt uVpeED9biRObTQwhRh2u rAfetZzsBO1qSBWa jdsqf672KqJbp1ssQRJz hKYyRKncDSS0Y26ls0R9 FYHaKYDfKUG8sDO6cW2w bGlnbjogbGVmdDsg jkNauNjfSLidJAmgQ183 IHRvcDsnPkJpcnRoIERh lZI9PF64CU87aGExz7S0 hHM6T2BxKLHzghhx relpyVT5SKYpFPKxzW66 Kp1uaVijDo7hGTGrDHL0 WZZjtYOoW5VugO6sEkUe PUYuWAPaT5OhjOUb WBwsC203YOisOiS0XFNl rkBmM1FfVCDviMxqAoR1 m8J6Im4OM6E9AB95YH15 zCRlk6T3bJA2C2Qo NJWdmhzaztmndWX8MQIx XYZtbP26Eh4dhAcmLc4c WGBdVVX7WWGuwZOjR5Fo hC2kSbVnKJScYLVm Y7SjfKTqCGrxG273QLvp YuO1LZRmulLfR1GqAUUz yAvmEpV5n7U7Le6DMAa6 SF52QG44fNTmr2Y3 yJW5F0SvZJVnimqgefcj eSK1PODxELPlgL60Tt9v rWejHx4uBWRfNTZ0GRDd aOOeF8QthY5kVaYo PGIsZSYbI0NbmLQeUIvv W255ZVahLcS7KHLzmxEj X4XnDODepHyaFmQ8v3J1 Hd6EZWOsAV88BUY2 vHM0PF25UM72T8SeTimz dGFibGU+PHRhYmxlIHdp ZHRoPScxMDAlJyBzdHls MH9pQx9vRAYzLHUl hCropTAxSbEqo8xzKOQs FEcbKB1ryRdvQ1VgmPS7 IXKbb6r7Zo09D51wU7En dXA+AHDlgUX3fMK5 sE3qIaKuJvU3UToqF704 PmGauCZvIlyvf2zqt8zz pIf7KnU8ETIrzsOnhVdq JTP4t9XuRc41T65l IHdpZHRoPSIxNSUiIHZh sIxfoc0kbR6wEj3+PGNv cDE7fQX0tD3zOwXkQxG3 SZhnP183JoMonKQw Oynsn6mwm1ggvOh2QaAg ULOscbLioAioKCK9q2Jt Dz51A9CtkGkfc0ItWhg3 fw55oECgz4U4qFL2 I6VfBUDgjglceTUxeRcy DA2lEOGhmoqwSMZdlU3r REJyJ0t8EuHjBdX0HWxv W3DgawO5KGUdtVOa FQcdSVE5B84ms5D1EJRf PFNtPKB4tKC1cX8feHmm bjogbGVmdDsgdmVydGlj SJfuEUteN693CNRv vLuyCVEjbE3jBKGbkSOr sLivZK4uWXBvyuwdZp6F JF4dRVBBC6FDXA13HA28 vSLyj0A2hUC0C7Mh QCNorhzklvhtoOV2RROs RDTiyS94oSMqHKjxEm7n x0L9d200MYJoCLQzuF79 Kz9wmItmAGCvbJJK eQ5kmejha8jrlznoAeIt IVRiKOp9YFr6BVJenKrz RcIoUTU7XcZ2NWW8eQOt iT2hpKykczeiqP5r Oyc+HLalKTgpJFw9YGrv dGQ+LZCeZOF0iTqtBCht BELwxI5uDZFmB3n6AnRo HjP5WWdnW4UrDWIc dmfvSm40lY6sQcIjItH6 VLneI0WbqxN7FAQneIFy ADhjXIP3R26zi4W5JJWw OXCkHYK4qDS7kR5f bGlnbjogbGVmdDsgdmVy hZqrLEsyWFzuZ334UURm aSlbNoZ5RZcpMPItVQ99 VZ26qSOsf1N6cTL2 M8HoCMXxhqnjumkrbXZ2 RDFjYRLuwG66vLJiIEdm Jw8hj8X5t774GSCgIPBy wB57Cl4kiGvqVSJv tWMMkS3emcdio3aofxat HdGfMKMjEQv4VMn4BGAj aEumPfVzXRJ5UhF4GCS7 jUHljJ0sxRcrwpal dS0dBfc+TWFsZTwvdGQ+ PKUqFPF2qGwlXFniVIRw wO8sQNCwG0h2LbRoQfV9 CEqfD4YiJOBrcrur Sh08yK8mUiGkXmG3MZpr Y6EofhM0OZEgdMDvNEmi YRM3L94xa8P7MRUvLJLk FKJ2nFC8iK1umSgc bjogbGVmdDsgdmVydGlj PDnlHDidL717LBMcpEdg SabsKrDNei0qJW2lLuci dGQ+GW87rc83P1Jn ImcgUoi3LJSpYFP0wRL7 kO0wGJXkFJsse7N5hKR6 M0XfhyAkaz5qt0fqJEOc YLgfS58ssOCaa2K0 QUUvoYJ5PRXtsPhqOwDc bL68Vmd+TMAhxBxai7Qn Mhaos4tkl8kupKm0NbGo JSIgdmFsaWduPSJ0 j9MaTq33S68eVAypVYQc LRIfZTTwFNYphSrhhm4d qQ1tXj2+LVXobHG6fEA7 gS0yJiGsCwV9JUod Y491TxMahUHtYaiyf1kg f5tbgJs6CeIkOFNunjLi hXwaIQW6v6VdKj30M8Vo cPliv3QjJdc7in20 pQDjd9R9tZQ0C9NtNGUn sbcxrWJykIrnSH7sHHGn uqpiPNMrqY9mRVKmP8d6 RuQgBdM9AFnbB2Rx zzA2DWAhiLLePMIuxVSI eV3tfvyvm1fpawjvQrOq JOShLEa0RUr5EBRhbTsk VdJqDLJ9ZfM2BWJ8 gZYcrB5fzKfvbiyidN8b Oyc+FTh8k1ifoMMuVL7n zSQ8VC94EW75gBQxt5G7 mBG9C5QeBCMdbgfl ktssnCI5TAVrUUIweG53 Bz3bcMsvIx1aLIIiDAS2 ATIpnGMkE5MvoB8bJsDs QNNbBVCoU8ZzvGGk PHsuE438KRtmPgV2HTVh ynIvF7IkLUZzjPnfDvZ0 t6W0Jt1EXI59HW87ED49 dSHpg9Y6fJN5L3Rz QQUqipydvxogtUB3VOAs KDFvdF42Dx0arBomDt2j PQTtYLO9YOWezROcL1Ub zL9nNzMdXLBlOZTb Y4MltHWjPGheX775IPze NnD0FRErbtFvR2GlNGFs gAncEmL3u2D1Xr3UTe04 BI05ZY34pHBjz0A2 aMP4B9JcOJByjsvlynso gBF0NKFjPEUmsR42Xs9v pEjwBu3uXQVeLIH1YWRc yCLmI5EnvY4xNiWc QGXoNGVaY0WzjCPwIVoi C869DVreVhI5WFFtaqAp W8VrHHNdpXdaBhB2p7J9 Yj1BWJkpidu8M7Tf PjwvdHI+YJ87RKMqSM14 dKPmnIQfo5dpcLo0BqYl JDOyQDC0dLpeNUzvb9Qw TVEjZ69fjKRoo1R5 IGNv (more content not included)... Normal [facility] Outside Colonoscopyon 2021 Outside Colonoscopy [id number] #2.00CD:127 [facility] Physician Orderon 01-28-2022 Physician Order [id number] 9#1.00CD:127 [facility] Consent for Procedure/Surger yon 01-15-2022 Consent for Procedure/Surgery [id number] 2#1.00CD:127 [facility] Ambulatory Visit Summaryon 0 01-14-2022 [...] PHYSICIAN INSTRUCTIONS. PRIOR TO COLONOSCOPY. [facility] Unchanged aspirin Contact prescribing physician [...] physician if questions or concerns Pharmacy Information [facility] 536: [address], [place] [id number] [phone] Medications and Immunizations Administered Not Given influenza [...] including vitamins, herbs, eye drops, creams, and duqw-uvb-palpury medicines. ? Any problems you or family [...] loose stools (more content not included)... Normal [facility] Gastroenterology Office/Clin ic Noteon 01-14-2022 Gastroenterology [...] E&M of New Patient Low 30-44 Min [id number] 2. Family history of polyps in the colon (Z83.71: Family history of colonic polyps) Same as above plan of care. See #1. Ordered: Colonoscopy (Hospital Procedure) E&M of New Patient Low 30-44 Min [id number] Orders: polyethylene glycol 3350 with electrolytes, See [...] Not Given Parent Or Guardian Refuses Normal [facility] Comment on above: Result Comment: Elec [...] including vitamins, herbs, eye drops, creams, and fhfg-etr-hzhezbq medicines. ? Any problems you or family [...] air t (more content not included)... Normal [facility] Pre-Authorization for Medica l Treatmenton 01-14-2022 Pre-Authorization for Medical Treatment [id number]# 1.00CD:127 Normal [facility] Physician Referralon 022 Physician Referral [id number] #1.00CD:127 Normal [facility] Glycohemoglobin (HGB A1C) Román fentonvon 01-26-2019 Hemoglobin A1c/Hemoglobin.total mass fraction (Bld) 5.3 % Normal [facility] Comment on above: Result Comment: [...] Calcium mass conc 8.7 mg/dL Normal 8.5-10.6 [facility] Chloride molar conc 107 mmol/L Normal 98-107 [facility] CO2 molar conc 28 mmol/L Normal 21-32 [facility] Creatinine mass conc 0.97 mg/dL Normal 0.70-1.30 Moun [facility] Glucose mass conc 129 mg/dL High 74-106 [facility] Potassium molar conc 4.1 mmol/L Normal 3.5-5.1 [facility] Sodium molar conc 144 mmol/L Normal 136-145 [facility] Urea nitrogen mass conc (BldV) 13 mg/dL Normal 7-18 [facility] Urea nitrogen/Creatinine mass ratio 13 mg/mg Normal [facility] CBC with Differentialon Basophils #/vol (Bld) 0.0 thou/mcL Normal 0.0-0.2 [facility] Basophils/100 WBC (Bld) 0.4 % Normal 0-3 [facility] Differential cell count method Nom (Bld) AUTOMATED DIFFERENTIAL Normal [facility] Eosinophils #/vol (Bld) 0.1 thou/mcL Normal 0.0-0.4 [facility] Eosinophils/100 WBC (Bld) 2.1 % Normal 0-7 [facility] Erythrocyte distribution width Entitic volume (RBC) 13.9 % Normal 11.7-15.0 [facility] Hematocrit Volume Fraction (Bld) 41.3 % Normal 34.0-50.0 [facility] Hemoglobin mass conc (Bld) 13.5 g/dL Normal 11.5-17.0 [facility] Lymphocytes #/vol (Bld) 1.2 thou/mcL Normal 0.7-4.5 [facility] Lymphocytes/100 WBC (Bld) 25.2 % Normal 14-46 [facility] MCH Entitic mass (RBC) 28.5 Picograms Normal 27.0-34.0 [facility] MCHC mass conc (RBC) 32.8 g/dL Normal 32.0-36.0 Moun [facility] MCV Entitic volume (RBC) 87.0 fL Normal 80-98 [facility] Monocytes #/vol (Bld) 0.2 thou/mcL Normal 0.1-1.0 [facility] Monocytes/100 WBC (Bld) 5.2 % Normal 4-13 [facility] Neutrophils #/vol (Bld) 3.2 thou/mcL Normal 1.5-7.8 [facility] Neutrophils/100 WBC (Bld) 67.1 % Normal 40-74 [facility] Platelet mean volume Entitic volume (Bld) 9.1 fL Normal 7.5-11.2 [facility] Platelets #/vol (Bld) 253 thou/mcL Normal 140-415 [facility] RBC #/vol (Bld) 4.74 x(10)6/mcL Normal 3.80-5.60 M[facility] WBC #/vol (Bld) 4.8 thou/mcL Normal 4.0-10.5 [facility] Partial Thromboplastin Time (aPTT)on 01-25-2019 aPTT Coag time (PPP) 33 Sec Normal 24.4-37.5 Moun [facility] Prothrombin Timeon 9 INR Coag RelTime (Bld) 1.0 {INR} Normal 0.8-1.[address] [facility] Comment on above: Result Comment: CATARINA MORIN THE INDUCTION PHASE OF ORAL ANTICOAGULATION, THE INR MAY NOT REFLECT THE ANTICOAGULANT STATUS OF THE PATIENT. THERAPEUTIC RANGES FOR INR'S ARE: MOST CLINICAL SITUATIONS: INR 2.0-3.0 MECHANICAL PROSTHETIC VALVES: INR 2.5-3.5 CRITICAL: INR 5.0 Prothrombin time (PT) Coag time (PPP) 10.9 Sec Normal 9.4-12.5 [facility] Vital Signs Date Time Vital Sign Value Performing Clinician Facility 04-22-2024 14:06-0400 Body height 175.26 cm [facility] 04-22-2024 14:06-0400 Body mass index (BMI) [Ratio] 24.7 kg/m2 [facility] 04-22-2024 14:06-0400 Body weight 76.2 kg [facility] 04-22-2024 14:06-0400 Diastolic blood pressure 84 mm[Hg] [facility] 04-22-2024 14:06-0400 Heart rate 83 /min [facility] 04-22-2024 14:06-0400 Respiratory rate 12 /min [facility] 04-22-2024 14:06-0400 Systolic blood pressure 125 mm[Hg] [facility] 02-26-2024 10:26-0400 Body height 175.26 cm [facility] 02-26-2024 10:26-0400 Body mass index (BMI) [Ratio] 24.2 kg/m2 [facility] 02-26-2024 10:26-0400 Body weight 74.44 kg [facility] 02-26-2024 10:26-0400 Diastolic blood pressure 93 mm[Hg] [facility] 02-26-2024 10:26-0400 Heart rate 73 /min [facility] 02-26-2024 10:26-0400 Respiratory rate 12 /min [facility] 02-26-2024 10:26-0400 Systolic blood pressure 143 mm[Hg] [facility] 12-22-2023 10:45-0500 Body height 175.26 cm Sean Ball Other [facility] 12-22-2023 10:45-0500 Body mass index (BMI) [Ratio] 24.51 kg/m2 Sean Ball Other [employer] Other 12-22-2023 10:45-0500 Body weight 75.3 kg Sean Ball Other [facility] [employer] Other 12-22-2023 10:45-0500 Body weight 75.29 kg [facility] 12-22-2023 10:45-0500 Diastolic blood pressure 80 mm[Hg] Sean Ball Other [facility] 12-22-2023 10:45-0500 Respiratory rate 12 /min Sean Ball Other [facility] [employer] Other 12-22-2023 10:45-0500 Systolic blood pressure 130 mm[Hg] Sean Ball Other [facility] 08-31-2023 09:30-0400 Body height 175.26 cm Sean Ball Other [employer] Other 08-31-2023 09:30-0400 Body mass index (BMI) [Ratio] 22.21 kg/m2 Sean Ball Other [employer] Other 08-31-2023 09:30-0400 Body weight 68.22 kg Sean Ball Other [employer] Other 08-31-2023 09:30-0400 Diastolic blood pressure 79 mm[Hg] Sean Ball Other [employer] Other 08-31-2023 09:30-0400 Respiratory rate 12 /min Sean Ball Other [employer] Other 08-31-2023 09:30-0400 Systolic blood pressure 120 mm[Hg] Sean Ball Other [employer] Other 12-15-2022 15:45-0500 Body height 175.26 cm Sean Ball Other [employer] Other 12-15-2022 15:45-0500 Body mass index (BMI) [Ratio] 25.25 kg/m2 Sean Ball Other [employer] Other 12-15-2022 15:45-0500 Body weight 77.57 kg Sean Ball Other [employer] Other 12-15-2022 15:45-0500 Diastolic blood pressure 76 mm[Hg] Sean Ball Other [employer] Other 12-15-2022 15:45-0500 Respiratory rate 12 /min Sean Ball Other [employer] Other 12-15-2022 15:45-0500 Systolic blood pressure 122 mm[Hg] Sean Ball Other [employer] Other 11-28-2022 15:45-0500 Body height 175.26 cm Sean Ball Other [employer] Other 11-28-2022 15:45-0500 Body mass index (BMI) [Ratio] 24.98 kg/m2 Sean Ball Other [employer] Other 11-28-2022 15:45-0500 Body weight 76.75 kg Sean Ball Other [employer] Other 11-28-2022 15:45-0500 Diastolic blood pressure 78 mm[Hg] Sean Ball Other [employer] Other 11-28-2022 15:45-0500 Respiratory rate 12 /min Sean Ball Other [employer] Other 11-28-2022 15:45-0500 Systolic blood pressure 122 mm[Hg] Sean Ball Other [employer] Other 02-12-2022 14:50-0400 Blood Pressure Location Esme Lopez [facility] 02-12-2022 14:50-0400 Diastolic blood pressure 84 mm[Hg] Esme Fishermetz [facility] 02-12-2022 14:50-0400 Heart rate 66 /min Esme Lopez [facility] 02-12-2022 14:50-0400 Respiratory rate 16 /min Esme Lopez [facility] 02-12-2022 14:50-0400 Systolic blood pressure 118 mm[Hg] Esme Lopez [facility] Encounters Encounter Date Encounter Type Care Provider Facility Start: 04-22-2024 End: 04-22-2024 ambulatory [facility] Work Phone: Start: 04-22-2024 End: 04-22-2024 Patient encounter procedure [facility] Work Phone: Start: 03-15-2024 End: 03-16-2024 ambulatory CESAR MARCH Not Available Start: 02-26-2024 End: 02-26-2024 ambulatory [facility] Work Phone: Start: 02-26-2024 End: 02-26-2024 Patient encounter procedure [facility] Work Phone: Start: 01-04-2024 End: 01-04-2024 ambulatory Sean Garcia Other [employer] Other Start: 01-04-2024 Telephone encounter Sean Garcia [facility] Start: 01-01-2024 End: 01-02-2024 ambulatory SEAN GARCIA Not Available Start: 12-24-2023 End: 12-24-2023 ambulatory Sean Garcia Other [employer] Other Start: 12-24-2023 Telephone encounter Sean Garcia [facility] Start: 12-22-2023 End: 12-22-2023 ambulatory Sean Garcia Other [employer] Other Start: 12-22-2023 Office outpatient visit 15 minutes Sean Garcia [facility] Start: 12-22-2023 End: 12-22-2023 Patient encounter procedure [facility]- Start: 09-17-2023 End: 09-17-2023 ambulatory Sean Garcia Other [employer] Other Start: 09-17-2023 Telephone encounter Sean LOMBARDI [facility] Start: 09-07-2023 End: 09-07-2023 ambulatory Sean Garcia Other [employer] Other Start: 09-07-2023 Telephone encounter Sean Garcia [facility] Start: 08-31-2023 End: 08-31-2023 ambulatory Sean Garcia Other [employer] Other Start: 08-31-2023 Encounter for genera l adult medical examination without abnormal findings Sean Garcia [facility] Start: 08-31-2023 Periodic preventive med est patient 40-64yrs Sean Garcia [facility] Start: 07-18-2023 End: 07-18-2023 ambulatory Sean Garcia Other [employer] Other Start: 07-18-2023 Telephone encounter Sean LOMBARDI [facility] Start: 04-03-2023 End: 04-04-2023 ambulatory NARENDRANATH LAKSHMIPATHY . Facility: Start: 03-10-2023 End: 03-10-2023 ambulatory NARENDRANATH LAKSHMIPATHY . Facility:[facility] Start: 02-24-2023 End: 02-24-2023 ambulatory GABRIELAJESSE AUSTINMIFLEX . Facility:[facility] Start: 01-22-2023 End: 01-23-[address] AMPARO KULKARNI . Facility:[facility] Start: 01-07-2023 End: 01-07-2023 ambulatory Sean Garcia Other [employer] Other Start: 01-07-2023 Telephone encounter Sean LOMBARDI [facility] Start: 01-06-2023 End: 01-06-[address] AMPARO KULKARNI . Facility:[facility] Start: 12-25-2022 End: 12-26-[address] AMPARO KULKARNI . Facility:[facility] Start: 12-15-2022 End: 12-15-2022 ambulatory Sean Garcia Other [facility] Other Start: 12-15-2022 Office outpatient visit 15 minutes Sean Garcia [facility] Start: 12-15-2022 Telephone encounter Sean LOMBARDI [facility] Start: 12-02-2022 End: 12-02-[address] AMPARO KULKARNI . Facility:[facility] Start: 11-28-2022 End: 11-28-2022 ambulatory Sean Garcia Other [facility] Other Start: 11-28-2022 Office outpatient visit 15 minutes Sean Garcia [facility] Start: 11-28-2022 Telephone encounter Sean LOMBARDI [facility] Start: 08-05-2022 End: 08-06-[address] AMPARO KULKARNI . Facility:[facility] Start: 08-05-2022 End: 08-06-[address] AMPARO KULKARNI . Facility:[facility] Start: 02-12-2022 End: 02-12-2022 Patient encounter procedure Esme Lopez [facility] Start: 01-26-2019 End: 01-26-2019 Patient encounter procedure AV BUSTAMANTE Facility:[place] Procedures Date Procedure Procedure Detail Performing Clinician Start: 02-22-2016 General examination of patient Sean Garcia Other Plan of Treatment Date Care Activity Detail Author Start: 02-26-2024 Patient referral [facility] Work Phone: Patient referral [facility] Work Phone: Immunizations Immunization Date Immunization Notes Care Provider Robert curry 08-31-2023 influenza, injectable, quadrivalent, preservative free Sean Garcia Other [facility] 10-01-2020 influenza virus vaccine, split virus (incl. purified surface antigen) Sean Garcia Other [facility] Other 10-01-2020 influenza virus vaccine, unspecified formulation [facility] 01-05-2016 tetanus toxoid, reduced diphtheria toxoid, and acellular pertussis vaccine, adsorbed Sean Garcia Other [facility] 12-24-2015 diphtheria, tetanus toxoids and acellular pertussis vaccine, unspecified formulation Sean Jose Other [facility] 12-25-2011 diphtheria, tetanus toxoids and acellular pertussis vaccine, unspecified formulation Sean Garcia Other [facility] NEGATED: Highlighted row has not occurred!02-12-2022 influenza virus vaccine, unspecified formulation Esme Lopez [facility] NEGATED: Highlighted row has not occurred!01-14-2022 influenza virus vaccine, unspecified formulation Esme Lopez [facility] Payers Date Payer Category Payer Unknown [id number] 2.16.8 [id number] 1965 Unknown [id number] 2.16.84 [id number] 1964 Unknown [id number] 2.16.84 [id number] 1964 Unknown [id number] 2.16.84 0.1.323601.3.579.2.593 1964 Unknown [id number] 2.16.84 0.1.515730.3.579.2.593 1964 Unknown [id number] 2.16.84 0.1.155475.3.579.2.593 1964 Unknown [id number] 2.16.84 0.1.410098.3.579.2.593 1964 Unknown [id number] 2.16.84 0.1.345439.3.579.2.593 1964 Unknown [id number] 2.16.84 0.1.608951.3.579.2.593 1964 Unknown [id number] 2.16.84 0.1.824826.3.579.2.593 1964 Unknown [id number] 2.16.84 0.1.676558.3.579.2.1259 1964 Unknown [id number] 2.16.84 0.1.684115.3.579.2.1259 1960 [facility] Blue Shield [id number] 1960 Private Health Insurance [id number] Self-pay Self Pay [id number] Unknown [facility] [id number] Social History Date Type Detail Facility Start: 02-12-2022 End: 12-22-2023 Tobacco smoking status Never smoked tobacco (finding) [facility] Sex Assigned At Male [facility] Start: 1965 Sex Assigned At Male [facility] Clinical Notes 02-12-2022 to 12-24-2023 Note Date & Type Note Facility 12-24-2023 Evaluation note Encounter Date Diagnosis Assessment Notes Dec, Nocturnal headaches (ICD-10 - R51.9) [facility] Other 01-30-2024 Evaluation note* Encounter Date Diagnosis [...] to go to ER for suspicious symptoms [facility] Other 10-09-2023 Evaluation note* Encounter Date Diagnosis [...] (ICD-10 - Z12.5) Yearly JAN and PSA [facility] Other 03-02-2023 NoteCONSULTATION CONSULTATION DATE: 01/22/2023 HISTORY: [...] q.h.s. Patient does agree with this plan.[id number] Note CONSULTATION CONSULTATION DATE: 12/25/2022 HISTORY OF [...] be followed up in the clinic thereafter.[id number] Evaluation note* Encounter Date Diagnosis Assessment Notes Treatment Notes Treatment Clinical Notes Nov, Acute salpingitis of right eustachian tube (ICD-10 - H68.011) Yawn, chew gum, sudafed as well as prescribed medication Nov, Non-recurrent acute serous otitis media of right ear (ICD-10 - H65.01) Initiate antibiotics [facility] Other 01-06-2023 Evaluation note* Encounter Date Diagnosis [...] (ICD-10 - N52.01) Sildenafil tolerated and beneficial. [facility] Other 09-13-2022 NoteCONSULTATION CONSULTATION DATE: 08/05/2022 CHIEF [...] would like to progress. CC: Sean Garcia D.O.[facility]03-23-2022 Hospital Discharge instructions Patient Education 02/12/2022 15:17:19 [...] 08/05/2005 Document Revised: 02/24/2019 Document Reviewed: 02/24/2019 [facility] Patient Education 2020 [employer]. Follow Up Care 01/29/2022 13:30:30 With:Esme Lopez CNP Address: When:1 year only if needed [facility] Evaluation + Plan note No data available for this section [facility] Evaluation noteNo InformationNort Livelens Other Evaluation noteNo assessment information available [facility] Work Phone: Evaluation note* Diagnosis Onset Date Resolution Status Cervical spondylosis acute Hypnic headache acute [facility] Work Phone: Hisnjtt general Narrative - Reported* Type Description Date [...] right thumb Hospitalization History see surgical history [facility] Other Hisypjx general Narrative - Reported* Type Description Date [...] Colonoscopy 04/2021 Hospitalization History see surgical history [facility] Other Hiscsdk general Narrative - Reported* Type Description Date [...] years) 01/2022 Hospitalization History see surgical history [facility] Other Reason for referral (narrative)* Reason 03/18/23 Referral for plugged right ear Diagnosis 1 Acute salpingitis of right eustachian tube (H68.011) Referral Organization [facility] Referring Provider First Name Sean Referring Provider Last Name Jose Referring Provider Specialty Internal Me dicine Referred Organization [facility] Referred Provider MaryAmie Referred Address ,[place], [place],[address] Referred Provider Specialty Ear, Nose an d [...] being referred for further evaluation and treatment. [facility] Other Summary Purpose Family History Relationship Condition [...] section and content) DATE CREATED AUTHOR 01/28/2019 [facility] DATE CREATED AUTHOR AUTHOR'S ORGANIZ ATION [facility]20[facility] DATE CREATED AUTHOR AUTHOR'S ORGANIZ ATION 04/04/2023 [facility] DATE CREATED AUTHOR AUTHOR'S ORGANIZ ATION 03/20/2024 [facility] EPIC REASON FOR [...] BE BASED ON THE PRIMARY CLINICAL RECORDS. [facility]. provides no warranty or guarantee of the accuracy or completeness of information in this document.
[2024-09-06 06:54] VITALS: BP 132/88; PULSE 70; TEMP 36.6; O2SAT 99
[2024-09-06 07:33] VITALS: BP 151/87; PULSE 70; O2SAT 99
[2024-09-06 07:35] VITALS: BP 143/82; PULSE 67; O2SAT 97
[2024-09-06] MEDS: BUPIVACAINE HCL 0.25% PF 25 MG/10 ML VIAL 3 ML INJ (07:38)
--- NOTE | 2024-09-06 08:58 | P.ON_ITS ---
Date of procedure: 09/06/24 Pre-op diagnosis: Thoracic spondylosis Post-op diagnosis: same as pre-op Procedure: Right Thoracic 09/02, 10/04 medial branch block Under fluoroscopic guidance Solution injected: 2millilitersMarcaine 0.25% Anesthesia :none Immediate complications none Time out process compliant After informed consent obtained from the patient placed in the [employer] proposition . area was prepped and draped in a sterile fashion using Cloraprep .25 gauge spinal needle inserted over each of the above mentioned target areas . [place] were directed towards the target under fluoroscopic guidance . after encountering each of the targets , no indication of intravascular intraneuronal or intrathecal needle tip placement. Then 0 .5 to 1 Milliliter was injected at each level. [place] removed postoperatively. patient transferred to recovery in stable condition to be discharged home after meeting criteria Anesthesia: Local Surgeon: Fransico Salvador Condition: stable
== END 2024-09-06 07:40 | disposition home or self-care (01) ==
LOC: SURGOUT 06:43
PROVIDERS: PCP Internal Medicine; Visit Provider Anesthesiology Pain Medicine
DX: M47.814 Spondylosis without myelopathy or radiculopathy, thoracic region (principal)
CPT/HCPCS: 64490; 64491; J0665

== ENCOUNTER 2024-09-27 14:42 | Outpatient (OUT) | payer BC, SELFPAY ==
--- NOTE | 2024-09-27 14:42 | CONS_ITS ---
PAIN MANAGEMENT CONSULTATION ? CONSULTATION DATE: ??09/27/2024 ? TO:? Dr. Garcia ? HISTORY:? Patient returns today complaining of pain in his right low thoracic area, described as 4-5/10 pain, sharp in character with a deep aching component.? Exacerbated pain with activities such as lifting maneuvers, pushing/pulling maneuvers and twisting maneuvers.? He feels most comfortable in the semi-recumbent position.? He denies any change in bowel and bladder habits or new sensory motor change in the lower extremities.? He has undergone two diagnostic medial branch blocks that innervated T10-11, T11-12 levels on the right side.? He reports he had at least 90% reduction in pain symptoms starting in the immediate post procedural period, with relief lasting at least several hours with recurrence of pain back to his baseline.? ? RECOMMENDATIONS:? Because of his response and lack of response to conservative therapy including medication management, activity modification as well as physical therapy, I recommend proceeding with a rhizotomy using radiofrequency ablation to denervate the right T10-11 and T11-12 levels.? All his questions answered.? He agrees to proceed with the outlined plan. ? As part of providing excellent, safe, comprehensive care, the following was completed at our patient's visit: ? 1. A medication reconciliation and review to ensure accurate knowledge of current/active medications, including asking our patients to inform us about any [id number] medications or herbal remedies/nutritional supplements/alternative remedies. ? 2. A review to specifically ensure our patients have had annual screening for: elevated body mass index (BMI, see intake chart for exact total), tobacco use, screening for depression, and screening for unhealthy alcohol use.? When screening is concerning, patients are provided with education and the specific recommendation to discuss the concerning health issue and treatment options with their primary care provider. [facility]
== END 2024-09-27 14:43 | disposition home or self-care (01) ==
LOC: PM 14:44
PROVIDERS: PCP Internal Medicine; Visit Provider Anesthesiology Pain Medicine
DX: M54.6 Pain in thoracic spine (principal)
CPT/HCPCS: G0463

== ENCOUNTER 2024-10-11 06:56 | Day surgery (SDC) | payer BC, SELFPAY ==
--- OUTSIDE RECORDS SUMMARY | 2024-10-11 06:59 | XMS_ITS | CCD ---
Author Organization [facility] Care Team Providers Care Belling Machine Operator Name Role Phone GOPI BUSTAMANTEKEYANA Butterfield Attending Unavailable SEAN GARCIA Primary Care Unavailable IGNACIA SCOTT Primary Care Physician Sean Garcia SHAD ., DR AMPARO Butterfield Admitting Unavailable KULKARNI ., DR AMPARO Butterfield Attending Unavailable JOSE, DR BAHKTA Primary Care Unavailable KULKARNI ., DR AMPARO Butterfield Consulting Unavailable MARTELL .LÓPEZ Consulting Unavailable KULKARNI ., DR AMPARO Butterfield Admitting Unavailable KULKARNI ., DR AMPARO Butterfield Attending Unavailable JOSE, DR BHAKTA Primary Care Unavailable KULKARNI ., DR AMPARO Butterfield Consulting Unavailable KULKARNI ., DR AMPARO Butterfield Admitting Unavailable KULKARNI ., DR AMPARO Butterfield Attending Unavailable JOSE, DR BHAKTA Primary Care Unavailable ZIJEANIEER, DR NINA Barreto Consulting Unavailable KULKARNI ., DR AMPARO Butterfield Consulting Unavailable LAKSHMIPATHY ., JENNIFER Admitting [place] vailable LAKSHMIPATHY ., JENNIFER Attending [place] vailable JOSE, DR BHAKTA Primary Care Unavailable LAKSHMIPATHY ., JENNIFER Consulting [place] vailable LAKSHMIPATHY ., NARJOEATH Admitting [place] vailable LAKSHMIPATHY ., CHLOEATH Attending [place] vailable JOSE, DR BHAKTA Primary Care Unavailable LAKSHMIPATHY ., JENNIFER Consulting [place] vailable LAKSHMIPATHY ., NARENDCARLOSATH Admitting [place] vailable HALKER ., SCAR Attending Unavailable JOSE, DR BHAKTA Primary Care Unavailable HALKER ., SCAR Consulting Unavailable KULKARNI ., DR AMPARO Butterfield Admitting Unavailable KULKARNI ., DR AMPARO Butterfield Attending Unavailable JOSE, DR BHAKTA Primary Care Unavailable KULKARNI ., DR AMPARO Butterfield Consulting Unavailable KULKARNI ., DR AMPARO Butterfield Admitting Unavailable KULKARNI ., DR AMPARO Butterfield Attending Unavailable JOSE, DR BHAKTA Primary Care Unavailable KULKARNI ., DR AMPARO Butterfield Consulting Unavailable JAYSHREE .LÓPEZ Consulting Unavailable SHAD ., DR AMPARO Butterfield Admitting Unavailable SHAD ., DR AMPARO Butterfield Attending Unavailable JOSE, DR BHAKTA Primary Care Unavailable SHAD ., DR AMPARO Butterfield Consulting Unavailable Jose GRIGGS, Sean Contreras Primary Care Provider SEAN GARCIA Referring Unavailable CESAR MARCH Referring Unavailable FRANCESCA HART Attending Unavailable Allergies Allergy Classification Reported Allergen(s) Allergy Type Date of Onset Reaction(s) Facility (1 source) patient allergy list reviewed by nurse or physicia Propensity to adverse reactions Comment:Done [employer] Other Medications Current Medications Medication Drug Class(es) [...] release (DR/EC) Discontinued 81 MG PO Daily 30 September 12, 2017 12:00am October 12, 2017 [...] 2024 12:00am Fish Oils (1 source) Start: 022 Fish Oil Oral, Refill(s) 0 Start Date: 01/14/22 Status: Ordered hydrocortisone 25 mg/ml topical cream (16 sources) Corticosteroid Start: 024 Hydrocortisone Active 1 APPLIC TOPICAL Daily February [...] 2024 12:00am take 1 tablet by jericho once daily as needed Sildenafil Citrate 100 [...] / neomycin 3.5 mg/ml / polymyxin b 83471 unt/ml otic suspension (14 sources) Aminoglycoside Antibacterial, Polymyxin-class Antibacterial, Corticosteroid Neomycin-Polymyxin -HC 3.5-70455-1 4 drops Otic Three times a day for 7 days Not-Taking/PRN lisinopril 5 mg oral tablet (2 sources) Angiotensin Converting Enzyme Inhibitor Start: 09-12-2017 End: 10-12-2017 take 5 mg by mouth once daily Lisinopril Discontinued 5 MG PO Daily September 12, 2017 12:00am October 12, 2017 1:03am Ltbjagbxized-Udfw-Lv lic Acid (Centrum) 18-400 mg-mcg Tablet (2 sources) Start: 09-11-2017 End: 02-25-2024 take 1 tablet by mouth once daily Multivitamin-Iron- Folic Acid (Centrum) 18-400 mg-mcg Tablet Discontinued 1 TAB PO Daily September 11, 2017 12:00am February 25, 2024 10:26am [place] 4-Xqj-Lzb-Fish Oil (Fish Oil) 900-1,400 mg Capsule,Delayed Release(Dr/Ec) (2 sources) Start: 09-11-2017 End: 02-25-2024 [place] 3-Jtl-Jhg-Fish Oil (Fish Oil) 900-1,400 mg Capsule,Delayed Release(Dr/Ec) [...] ear and sense organ disorders (2 sources) Bilateral hearing loss; Translations: [Unspecified hearing loss, bilateral] 09-16-2024 Chronic Other ear and sense organ disorders (15 [...] by: NINA SOLIS Date: 2022-08-07 15:39 Normal [facility] Reminderson 04-08-2022 Reminders - From: Justin Larry To: [facility] - Reminders/Recalls; Sent: 04/08/2022 18:13:16 EDT Show up: 12/24/2026 18:13:00 EST Subject: Ambulatory Reminder - 5 year colon recall Due Date/Time: 01/28/2027 18:13:00 EST Reminder/Recall Repeat colonoscopy in 5 years (2026) due to polyps Normal [facility] Ambulatory Visit Summaryon 0 02-12-2022 Ambulatory Visit [...] colono (more content not included)... Normal [facility] Gastroenterology Office/Clin ic Noteon 02-12-2022 Gastroenterology [...] 08/05/2005 Document Revised: 02/24/2019 Document Reviewed: 02/24/2019 [employer] Patient Education ? 2019 [place] [facility] Coding Summary.on 02-03-2022 Coding Summary. CD:[id number] Gh0bWw+PGhlYWQ+PE1FV CQxI52nvPHcgS6SS1aNI G8HPBQUOHSNRK9BSB8ri IB6EEtaV6PfkmWt MurfxHKhVM64YUm7JWM0 uHrnRGwqyW9qxYHbE3d2 KwLlRD53wV86FVluMSWh AbT7IqZzceveiESh D1ieCtVqrHUtSzf+PHRh YmxlIHdpZHRoPScxMDAl OlVjhSukID5oKc2pPAMl LWNvbGxhcHNlOiBj g5jhISAcVCgbCM9tuIzz U4XtzYB5TZLxk7i5Nj64 dHI+EYXsTZF2rOhsGOyd k998YgTwg1pwCTS0 hNPjSJesVHJ0H23lm6I7 HQJhZBWkWCS2hMT4lZ2u fCbnyuyyK0InbCQjLzY6 UJC0hNBhaN4usRdt vtzspG3fLhk+W07RSE7Z OHEQNM6ZSxv3H0UiXdri dHI+FT49VZPaBW85gKYt jXDxi0bysPb3FvZv ZUOqCFT4kTcpRWrjb7Zp BJLdL31ffVRnl6F0GRGx pClqbNBxCfLdaJJ7eI1j CAuftcler5lbmqpj Vvcum0xiwg39pK41P61d CYtoRQGcXTN7TMCzBKUy vOgvhk1xaZ9pEh3+IDxj o6ulz0uqgWd3AkNm KWLsinPksYnuHRF6o5On Hw99S6LnlPsai4GoRav5 rs14bNQuh8F6zQQ5SRfm XUYdmW0bKGooAsP8 DQAeMlFpeJ15iJXxJTas Aj5ndPcybJwaVL1xDCBq xileMCSheB8zHLMplRMx sMgxIO5tMCIoscpj p839JpYxPZG9DIHptJUr W3RnvM7fRiNvSTFbMRHe I7NogFPeTZokF466SPwm VeQ7MESqzdMfY7Yl QRSdaEfdQbC1h8V8Ll1B o3EdeoxaRBG4JMpyKZAp OrM9FlVyDsC5U8SzAvy1 UIHhvYyrCS1dB8Jq ZJKlhkyepphiiLT4FWDj HAZdyS23pURgEFkgLx4n w5O7d861QJToTTFjqB05 Fn7bkDltYZDjnLJI xG8wgdbug9gbgzerHxUq NHVmMRq8CRv2WMLubJyu WgEcPDT2GaJ2MXI0aNYx uB4bjZgqgnuqjC3w Oyc+A26bvE4rCMO3FCH3 gvrsOBMwckFyXZ38NR87 H5TbEdqshCVagCL+PGRp ofHovKlaXD2rNxKg r9ivd6HwEYfiS9IjPMXi HMduIxv2DJUiQLF9kKJ2 hM1aRAGbQEolp5J1lYR4 G6LeroGqvx7zw7pl HXXpREodU35hiLPaw7D5 DQXblLM9ULDlfGfiUnLi wC36Qar+VAMjdZavj8Pf Fcgbg2bmz7jyjSq8 IjMwJSIgdmFsaWduPSJ0 q9KtDw00C98dAXdhXGCs HFBpVENmASXbhGpjcv1i dQ4zAb9+PGNvbCB3 pEM6cR6eNBFdQcX1CDzm R612LrIucXBvIrmnr2hz t4ufkDi5CqQvCDEqawYn yDkaVIF7b9XtBy60 O64vOZsbFBEwWFNnCMVg JCDevSwtby3ypM7rYy5+ ZJ6mk2jjhg88xT03cLV+ QXZrSJO9aCjeOXdh USOkhO7vALkmKhS4DVVs NeHumY08mZUzHNvrSw0u sOpsqFhqYD4jCTOquadw j533DyYnj6ccVEFv gSVwODpfFRA9J56zy6H6 SCSzQPRnCLR3yTI8qQ9z bGlnbjogbGVmdDsgdmVy lGjkMRpqKIcnT023 IHRvcDsnPlBhdGllbnQg PlElOTg6Z0QcGuy7CPJe oTdrIT0krGMqTZsaNy6r bUhxgHkyRV7kNZAb zvygm662EaPjw9hbJFFr zCFuQUsqMRB9A43uw7K8 CDFiXHMvISW9dZU9uM2h bGlnbjogbGVmdDsg uvYsvNrfYBrdXJyaO857 IHRvcDsnPkJpcnRoIERh uQN9KO24MC21uGWcs7I3 iAJ8S4SfRPQaxcjm wvjbnAK7LICwVWVdtA68 Mm0kaXziBu0zSWWqMWX0 DSAluBTzT7InsZ3nUzOx HUQvTNRzD3QjlEDa GQqvM001XWdmZiK9XBPa cpFrF9DzFZPlnJyjLwS7 e1Z4Zn7NU4H0MS98OJ26 aVBqv3U1lMU3S0Mc MTDzqpwcpjbqyLS3ZDZl NPPslR34Ek3ktOekJc3l JORiDOH9PVKkqDBlN7Zv lD7wDyOiIWTwSCHo Z0FfcAAuQSolI536NNix MqK4GCFikzIuU2JoQVDq oDuiIeM0u5R0Kw5DXEl7 DH22OF25oDXji9X0 xNX2W6MyYHLmiuqdsjmf fBT0LFLqVQOtkY93Su0o aDdmAf3gJTMbEFP0UZKk iYYkW4QdzN6gWxZh ZISmRTQoQ8WrzUTqVMdc Q994RTzgTvY8AVJeplTi F5AeKAIswAutJaU1t9J0 Pi7QVIZxYU94VRX1 gGT5VT10YE32I0JmTgek dGFibGU+PHRhYmxlIHdp ZHRoPScxMDAlJyBzdHls NC4pWx2uQOAaVVAn gLkmtWKuTzXhh3mrNWCd UDifFJ2glOifA8XidIX3 WCEqi4n2Uo41S88oR9Xz dXA+BKXcnES0yXJ3 zU5bSvTfRuZ1KPfpB944 XlFgbWPrGidhz5mwz9ob tJd6XnC6BYXwmxMrrQxp XMH1f8EzNt66D11g IHdpZHRoPSIxNSUiIHZh dTwyxe8deQ8wGj8+PGNv gNO2cZW7jY7hIyCkMqZ9 UOfmV218XmIusXNq Wmwbg2flj4rwcKb5QuJx IYJfvuUduXruMBC3k0Jl Hr71C1ZnoNtzk0XmKkq0 gr09sLWna8I1fZJ9 N5VcESEzlqrplEYymSyl QD2aNIQwdpbyMLMjlS4h GPWqI4v1WwKfAdQ9BTrb P8VidzY3LQOitSPt GOxvYMS8P37gj4Z7ZOQe BXUnYBD3qSW8sH8vlDnz bjogbGVmdDsgdmVydGlj HOylEEuxF962VZKh cIynWOOlkX4tKOEruIGe wQqgKI9bJJCxftirKo1C JV8gMBJWP0VWBJ32LU42 kBSdg9A9mXC3D9Eg CBRfgmzcafutcAX6KWBq UWDxrC06eXAzGHyrMd0y u5A4h253WTXfBECfpF19 Vi3etPrbPAWewDYQ jV3pgkarz1ogbqfgAvIb JJKlUQr7AVb1PUIlzVec QaEgMJD4PcR2FNW2vGDn xK0ohHnfrdvpiN5j Oyc+FFqlTGbwQQa9JKsz dGQ+GLBvRDM4pVuaGUuq YIWrtI6wXTNoV9b1WtWf OtQ9VBvuZ6QwLQSi laokIl06pR5wNnOeExQ9 QFwjM9NygnT3VQQchNPx ETwrFWO7B04sr0B9WACv QUVeLBB2vFK2bI1r bGlnbjogbGVmdDsgdmVy sKatHHezVIebJ734SPPc hAuvJmF2TVbvUBJhHI08 UG08mAThx8S6oBK7 Y0AkXIHzqpzzjyceqGQ5 XWXkIBBirC76aKCeZHad Nv7kh3X3b003ZKQwHRJy dZ92Rq3ngAyeMREt qEYWfA1husdqv1yqkhrz JxKsSFMyDFv8HPx6RNEk bVlcZmPsBPT4LjD8YFH2 mAEdgT9sgKcsqmdo iS7uUql+TWFsZTwvdGQ+ EJJmXUX7uRiqTEygOYHp gN0lZWDfB8l7TdWvJrQ6 BSpmD5EuHUQqwbmd Jq69eZ6wVrFlLiI8YGfm R5FglqV7FLIttEDmEDax IQD0X40ai1Q9VIIzLNEw XIC9qMZ1aF5kwGoi bjogbGVmdDsgdmVydGlj CSmtGOonB467KNRzsBfx RxrfWoGCnc8nQL8qOqxy dGQ+SM14kx11U6Pf HjnzQyz7DCShZWP3jOJ2 fM7fVPVbWPzpt7V6tRH6 J9RtwiRlto5dn3xtCKJf JNxiG06slZTks6H4 WQBghYQ6HETisXwrCyFd yY98Iqv+VEFtlErdn3Vl Mycxz5vlx2ejmJz4GzVa JSIgdmFsaWduPSJ0 q4HaQa79J11jGLxaBKCd VDSqTJQuPBTzgJkiuy8i lY5qQn2+FLZnuTZ5wGY8 zX4lTzCkRhD3GBcv T071DdBibFQwBhyrx8eu i2suwUy9TuEqJBTggjNq tGgdDVL4n8KwYp88F4Sc hBarx9ZoCkf3xr36 eZDaf2Q6aTJ0T4LgUGIx jguitLYucAdrUK7rXLJh xbakHVQfzK0uNGAhY3b8 SwObLjN0ENbgE8Iw poX7HBRkbCQzERHkjWIU gP0czkcnu5dnaeznJjKc ULAyMGn6IRj2EIIreOtx XnCmVDV6UpI1XER7 oSYopF8doBmzhpgpgE1e Oyc+VFp2g8pwhNXhSG6b fLZ5LZ50YJ17mGOuz5U9 fVY3H6JqLYDjdtwu yalsxUJ2ZCLrABIaeO78 Tl3eiGhnTf9jMWYjDMI1 YCPphQJaN2HryI4pUrBs WJQsDSDtF1AciVGt ZGyrQ480FMntWtJ6UQLe wzGuX8UyTOAweCmqSpX9 a8W1Jf7MXI41WE65GZ62 bEJah9A6gMB6H8Nt FYWvphpyepqwoLO0SNNe WCNkqT58Xk4flNihJc2u PLGtVQO7NGLzsERyP9Zq hK3rBtHvXIYjPPKp E7MwmAGaIDtfZ324WSlf AcN7VANovqEgD6DiIPDr wBkvOzX6f8C3Xz3YFm30 TC78MZ21tBDkn7H4 eAP3B1JhCKZiqgppipwb iBY6IWSsLVDwsZ69Mx1q dOzfGn8dKREfABM2TMBe yZUwE1LfeB3pUfTj BISiCHMiC8FvcHNkGOou U160FZbnLhX0WFAkouIc R5LdOLHboOtvKfT6s9J5 Ap6JEJqsfhl1I5By PjwvdHI+MO77GBZzGY74 zIZpdUSsx0ndaXr8QwSl AAOiYFW8iLfjDNdxk2Kc CKGeI86xmCZlm3G4 IGNv (more content not included)... Normal [facility] Outside Colonoscopyon 2021 Outside Colonoscopy [id number] #[id number]:127 Normal [facility] Physician Orderon 01-28-2022 Physician Order [id number]#1.00CD:127 Normal [facility] Consent for Procedure/Surger yon 01-15-2022 Consent for Procedure/Surgery [id number] 2#1.00CD:127 Normal [facility] Ambulatory Visit Summaryon 0 01-14-2022 Ambulatory [...] PHYSICIAN INSTRUCTIONS. PRIOR TO COLONOSCOPY. Pickup at [facility] [address] Unchanged aspirin Contact prescribing physician if [...] physician if questions or concerns Pharmacy Information [facility] [address]: [address], [place] [phone] [phone] Medications and Immunizations Administered Not Given influenza [...] including vitamins, herbs, eye drops, creams, and gfoa-jrg-vznvaiu medicines. ? Any problems you or family [...] E&M of New Patient Low 30-44 Min 03835 2. Family history of polyps in the colon (Z83.71: Family history of colonic polyps) Same as above plan of care. See #1. Ordered: Colonoscopy (Hospital Procedure) E&M of New Patient Low 30-44 Min 88717 Orders: polyethylene glycol 3350 with electrolytes, See [...] including vitamins, herbs, eye drops, creams, and nisd-lzs-tloqnqg medicines. ? Any problems you or family [...] l Treatmenton 01-14-2022 Pre-Authorization for Medical Treatment [id number]# 1.00CD:127 Normal [facility] Physician Referralon 022 Physician Referral [id number] #1.00CD:127 Normal [facility] Glycohemoglobin (HGB A1C) Román boothe 01-26-2019 Hemoglobin A1c/Hemoglobin.total mass fraction (Bld) 5.3 % Normal [facility] Comment on above: Result Comment: Refe rence [...] Calcium mass conc 8.7 mg/dL Normal 8.5-10.6 [facility] Chloride molar conc 107 mmol/L Normal 98-107 [facility] CO2 molar conc 28 mmol/L Normal 21-32 [facility] Creatinine mass conc 0.97 mg/dL Normal 0.70-1.30 [facility] Glucose mass conc 129 mg/dL High 74-106 [facility] Potassium molar conc 4.1 mmol/L Normal 3.5-5.1 [facility] Sodium molar conc 144 mmol/L Normal 136-145 [facility] Urea nitrogen mass conc (BldV) 13 mg/dL Normal 7-18 [facility] Urea nitrogen/Creatinine mass ratio 13 mg/mg Normal [facility] CBC with Differentialon Basophils #/vol (Bld) 0.0 thou/mcL Normal 0.0-0.2 [facility] Basophils/100 WBC (Bld) 0.4 % Normal 0-3 [facility] Differential cell count method Nom (Bld) AUTOMATED DIFFERENTIAL Normal [facility] Eosinophils #/vol (Bld) 0.1 thou/mcL Normal 0.0-0.4 [facility] Eosinophils/100 WBC (Bld) 2.1 % Normal 0-7 [facility] Erythrocyte distribution width Entitic volume (RBC) 13.9 % Normal 11.7-15.0 [facility] Hematocrit Volume Fraction (Bld) 41.3 % Normal 34.0-50.0 [facility] Hemoglobin mass conc (Bld) 13.5 g/dL Normal 11.5-17.0 [facility] Lymphocytes #/vol (Bld) 1.2 thou/mcL Normal 0.7-4.5 [facility] Lymphocytes/100 WBC (Bld) 25.2 % Normal 14-46 [facility] MCH Entitic mass (RBC) 28.5 Picograms Normal 27.0-34.0 [facility] MCHC mass conc (RBC) 32.8 g/dL Normal 32.0-36.0 [facility] MCV Entitic volume (RBC) 87.0 fL Normal 80-98 [facility] Monocytes #/vol (Bld) 0.2 thou/mcL Normal 0.1-1.0 M [facility] Monocytes/100 WBC (Bld) 5.2 % Normal 4-13 [facility] Neutrophils #/vol (Bld) 3.2 thou/mcL Normal 1.5-7.8 [facility] Neutrophils/100 WBC (Bld) 67.1 % Normal 40-74 [facility] Platelet mean volume Entitic volume (Bld) 9.1 fL Normal 7.5-11.2 [facility] Platelets #/vol (Bld) 253 thou/mcL Normal 140-415 M [facility] RBC #/vol (Bld) 4.74 x(10)6/mcL Normal 3.80-5.60 [facility] WBC #/vol (Bld) 4.8 thou/mcL Normal 4.0-10.5 [facility] Partial Thromboplastin Time (aPTT)on 01-25-2019 aPTT Coag time (PPP) 33 Sec Normal 24.4-37.5 [facility] Prothrombin Timeon 9 INR Coag RelTime (Bld) 1.0 {INR} Normal 0.8-1.2 [facility] Comment on above: Result Comment: DURI NG THE INDUCTION PHASE OF ORAL ANTICOAGULATION, THE INR MAY NOT REFLECT THE ANTICOAGULANT STATUS OF THE PATIENT. THERAPEUTIC RANGES FOR INR'S ARE: MOST CLINICAL SITUATIONS: INR 2.0-3.0 MECHANICAL PROSTHETIC VALVES: INR 2.5-3.5 CRITICAL: INR 5.0 Prothrombin time (PT) Coag time (PPP) 10.9 Sec Normal 9.4-12.5 [facility] Vital Signs Date Time Vital Sign Value Performing Clinician Facility 04-22-2024 14:06-0400 Body height 175.26 cm [facility] 04-22-2024 14:06-0400 Body mass index (BMI) [Ratio] 24.7 kg/m2 [facility] 04-22-2024 14:06-0400 Body weight 76.2 kg [facility] 04-22-2024 14:06-0400 Diastolic blood pressure 84 mm[Hg] [facility] 04-22-2024 14:06-0400 Heart rate 83 /min [facility] 04-22-2024 14:06-0400 Respiratory rate 12 /min [facility] 04-22-2024 14:06-0400 Systolic blood pressure 125 mm[Hg] [facility] 02-26-2024 10:26-0400 Body height 175.26 cm [facility] 02-26-2024 10:26-0400 Body mass index (BMI) [Ratio] 24.2 kg/m2 [facility] 02-26-2024 10:26-0400 Body weight 74.44 kg [facility] 02-26-2024 10:26-0400 Diastolic blood pressure 93 mm[Hg] [facility] 02-26-2024 10:26-0400 Heart rate 73 /min [facility] 02-26-2024 10:26-0400 Respiratory rate 12 /min [facility] 02-26-2024 10:26-0400 Systolic blood pressure 143 mm[Hg] [facility] 12-22-2023 10:45-0500 Body height 175.26 cm Sean Ball Other [facility] 12-22-2023 10:45-0500 Body mass index (BMI) [Ratio] 24.51 kg/m2 Sean Ball Other [facility] [employer] Other 12-22-2023 10:45-0500 Body weight 75.3 kg Sean Ball Other [email or web address] Other 12-22-2023 10:45-0500 Body weight 75.29 kg [facility] 12-22-2023 10:45-0500 Diastolic blood pressure 80 mm[Hg] Sean Ball Other [facility] 12-22-2023 10:45-0500 Respiratory rate 12 /min Sean Ball Other [facility] [employer] Other 12-22-2023 10:45-0500 Systolic blood pressure 130 mm[Hg] Sean Ball Other [facility] 08-31-2023 09:30-0400 Body height 175.26 cm Sean Ball Other [facility] [employer] Other 08-31-2023 09:30-0400 Body mass index (BMI) [Ratio] 22.21 kg/m2 Sena Ball Other [employer] Other 08-31-2023 09:30-0400 Body weight 68.22 kg Sean Ball Other [employer] Other 08-31-2023 09:30-0400 Diastolic blood pressure 79 mm[Hg] Sean Ball Other [employer] Other 08-31-2023 09:30-0400 Respiratory rate 12 /min Sean Ball Other [employer] Other 08-31-2023 09:30-0400 Systolic blood pressure 120 mm[Hg] Sean Ball Other [employer] Other 12-15-2022 15:45-0500 Body height 175.26 cm Sean Ball Other [employer] Other 12-15-2022 15:45-0500 Body mass index (BMI) [Ratio] 25.25 kg/m2 Sean Ball Other [employer] Other 12-15-2022 15:45-0500 Body weight 77.57 kg Sean Ball Other [employer] Other 12-15-2022 15:45-0500 Diastolic blood pressure 76 mm[Hg] Sean Ball Other [employer] Other 12-15-2022 15:45-0500 Respiratory rate 12 /min Sean Ball Other [employer] Other 12-15-2022 15:45-0500 Systolic blood pressure 122 mm[Hg] Sean Ball Other [employer] Other 11-28-2022 15:45-0500 Body height 175.26 cm Sean Ball Other [employer] Other 11-28-2022 15:45-0500 Body mass index (BMI) [Ratio] 24.98 kg/m2 Sean Ball Other [employer] Other 11-28-2022 15:45-0500 Body weight 76.75 kg Sean Ball Other [employer] Other 11-28-2022 15:45-0500 Diastolic blood pressure 78 mm[Hg] Sean Ball Other [employer] Other 11-28-2022 15:45-0500 Respiratory rate 12 /min Sean Ball Other [employer] Other 11-28-2022 15:45-0500 Systolic blood pressure 122 mm[Hg] Sean Ball Other [employer] Other 02-12-2022 14:50-0400 Blood Pressure Location Esme Lopez [facility] 02-12-2022 14:50-0400 Diastolic blood pressure 84 mm[Hg] Esme Fishermetz [facility] 02-12-2022 14:50-0400 Heart rate 66 /min Esme Lopez [facility] 02-12-2022 14:50-0400 Respiratory rate 16 /min Esme Lopez [facility] 02-12-2022 14:50-0400 Systolic blood pressure 118 mm[Hg] Esme Lopez [facility] Encounters Encounter Date Encounter Type Care Provider Facility Start: 09-16-2024 End: 09-16-2024 Bamboo flowsheet Francesca Hart AUD Work Phone: [facility] Start: 09-16-2024 End: 09-16-2024 Bamboo flowsheet Francesca Hrat AUD Work Phone: [facility] Start: 09-16-2024 End: 09-16-2024 Patient encounter procedure Francesca Hart AUD Work Phone: [facility] Comment on above: Bilateral hearing lo ss, unspecified hearing loss type (Primary Dx) Start: 09-16-2024 End: 09-16-2024 ambulatory FRANCESCA HART Not Available Start: 08-26-2024 End: 09-05-2024 Telephone encounter Ksenia Piper MA [facility] Start: 04-22-2024 End: 04-22-2024 ambulatory [facility] Work Phone: Start: 04-22-2024 End: 04-22-2024 Patient encounter procedure [facility] Work Phone: Start: 03-15-2024 End: 03-15-2024 ambulatory CESAR STOVERTZ Not Available Start: 02-26-2024 End: 02-26-2024 ambulatory [facility] Work Phone: Start: 02-26-2024 End: 02-26-2024 Patient encounter procedure [facility] Work Phone: Start: 01-04-2024 End: 01-04-2024 ambulatory Sean Jose Other [employer] Other Start: 01-04-2024 Telephone encounter Sean Ball FP [facility] Start: 01-01-2024 End: 01-01-2024 ambulatory SEAN Contreras JOSE Not Available Start: 12-24-2023 End: 12-24-2023 ambulatory Sean Jose Other [employer] Other Start: 12-24-2023 Telephone encounter Sean Ball FP [facility] Start: 12-22-2023 End: 12-22-2023 ambulatory Sean Ball Other [employer] Other Start: 12-22-2023 Office outpatient visit 15 minutes Sean Ball [facility] Start: 12-22-2023 End: 12-22-2023 Patient encounter procedure [facility]- Start: 09-17-2023 End: 09-17-2023 ambulatory Sean Ball Other [employer] Other Start: 09-17-2023 Telephone encounter Sean Ball [facility] Start: 09-07-2023 End: 09-07-2023 ambulatory Sean Ball Other [employer] Other Start: 09-07-2023 Telephone encounter Sean L[facility]BARDI [facility] Start: 08-31-2023 End: 08-31-2023 ambulatory Sean Garcia Other [employer] Other Start: 08-31-2023 Encounter for genera l adult medical examination without abnormal findings Sean Garcia [facility] Start: 08-31-2023 Periodic preventive med est patient 40-64yrs Sean Garcia [facility] Start: 07-18-2023 End: 07-18-2023 ambulatory Sean Garcia Other [employer] Other Start: 07-18-2023 Telephone encounter Sean Shah [facility] Start: 04-03-2023 End: 04-04-2023 ambulatory NARENDRANATH LAKSHMIPATHY . Facility:[facility] Start: 03-10-2023 End: 03-10-2023 ambulatory NARENDRANATH LAKSHMIPATHY . Facility:[facility] Start: 02-24-2023 End: 02-24-2023 ambulatory NARENDRANATH LAKSHMIPATHY . Facility:[facility] Start: 01-22-2023 End: 01-23-[address] AMPARO KULKARNI . Facility:[facility] Start: 01-07-2023 End: 01-07-2023 ambulatory Sean Garcia Other [employer] Other Start: 01-07-2023 Telephone encounter Sean L[facility]BARDI [facility] Start: 01-06-2023 End: 01-06-[address] AMPARO KULKARNI . Facility:[facility] Start: 12-25-2022 End: 12-26-[address] AMPARO KULKARNI . Facility:[facility] Start: 12-15-2022 End: 12-15-2022 ambulatory Sean Garcia Other [employer] Other Start: 12-15-2022 Office outpatient visit 15 minutes Sean Garcia [facility] Start: 12-15-2022 Telephone encounter Sean LOMBARDI [facility] Start: 12-02-2022 End: 12-02-[address] AMPARO KULKARNI . Facility:[facility] Start: 11-28-2022 End: 11-28-2022 ambulatory Sean Garcia Other [employer] Other Start: 11-28-2022 Office outpatient visit 15 minutes Sean Garcia [facility] Start: 11-28-2022 Telephone encounter Sean Garcia [facility] Start: 08-05-2022 End: 08-06-[address] AMPARO KULKARNI . Facility:[facility] Start: 08-05-2022 End: 08-06-[address] AMPARO KULKARNI . Facility:[facility] Start: 02-12-2022 End: 02-12-2022 Patient encounter procedure Esme Lopez [facility] Start: 01-26-2019 End: 01-26-2019 Patient encounter procedure AV BUSTAMANTE Facility:[facility] Procedures Date Procedure Procedure Detail Performing Clinician Start: 02-22-2016 General examination of patient Sean Garcia Other Plan of Treatment Date Care Activity Detail Author Start: 07-24-2024 Influenza vaccination Influenza Vacc ine (#1) [facility] Start: 02-26-2024 Patient referral [facility] Work Phone: Start: 1965 Screening for malign ant neoplasm of colon [facility] Patient referral [facility] Work Phone: Immunizations Immunization Date Immunization Notes Care Provider Robert minor 08-31-2023 influenza, injectable, quadrivalent, preservative free Sean Garcia Other [facility] 08-31-2023 influenza virus vaccine, unspecified formulation Ksenia Piper MA [facility] 10-01-2020 influenza virus vaccine, split virus (incl. purified surface antigen) Sean Garcia Other [facility] [employer] Other 10-01-2020 influenza virus vaccine, unspecified formulation [facility] 01-05-2016 tetanus toxoid, reduced diphtheria toxoid, and acellular pertussis vaccine, adsorbed Sean Garcia Other [facility] 12-24-2015 diphtheria, tetanus toxoids and acellular pertussis vaccine, unspecified formulation Sean Garcia Other [facility] 12-25-2011 diphtheria, tetanus toxoids and acellular pertussis vaccine, unspecified formulation Sean Garcia Other [facility] NEGATED: Highlighted row has not occurred!02-12-2022 influenza virus vaccine, unspecified formulation Esme Lopez [facility] NEGATED: Highlighted row has not occurred!01-14-2022 influenza virus vaccine, unspecified formulation Esme Lopez [facility] Payers Date Payer Category Payer [facility] er [id number] 1964 Unknown [id number] 2.840.1.471612.3.579 .2.584 1964 Unknown [id number] 2.840.1.295353.3.579 .2.593 1964 Unknown [id number] 2..840.1.983596.3.579 .2.593 1964 Unknown [id number] 2.840.1.649397.3.579 .2.593 1964 Unknown [id number] 2.16.840.1.093798.3.579 .2.593 1964 Unknown [id number] 2.16.840.1.539895.3.579 .2.593 1964 Unknown [id number] 2.16.840.1.105317.3.579 .2.593 1964 Unknown [id number] 2.16.840.1.395422.3.579 .2.593 1964 Unknown [id number] 2.16.840.1.654338.3.579 .2.593 1964 Unknown [id number] 2.16.840.1.026096.3.579 .2.593 1964 Unknown [id number] 2.16.840.1.938526.3.579 .2.1259 1964 Unknown [id number] 2.16.840.1.310558.3.579 .2.1259 1964 Unknown [id number] 2.16.840.1.081245.3.579 .2.1259 1960 [facility] [id number] 2.16.840.1.142314.19 1959 Private Health Insurance [id number] Self-pay Self Pay [id number] [facility] [id number] Social History Date Type Detail Facility Start: 02-12-2022 End: 12-22-2023 Tobacco smoking status Never smoked tobacco (finding) [facility] Tobacco smoking status Never [facility] Sex Assigned At Male [facility] Start: 1965 Sex Assigned At Male [facility] Tobacco smoking status NHIS Tobacco smoking consumption unknown [facility] Start: 1965 Sex assigned at Not on file N [facility] Clinical Notes 02-12-2022 to 09-16-2024 JASPREET Chatman - 09/16/2024 11:00 AM EDTTelephone Encounter - PRESTON Foster - 09/05/2024 6:06 PM EDTTelephone Encounter - PRESTON Foster - 09/05/2024 6:06 PM EDT Note Date & Type Note Facility 09-16-2024 History of Presen t illness Narrative Pt picked up swim plugs- collected cost = $100 documented in this encounter [facility] 09-05-2024 Telephone encount er Note Swim Plugs are in [place] office. Left pt VM for roll picker. $100 due at roll picker [facility] Work Phone: 09-05-2024 Miscellaneous Notes Formattin g of this note might be different from the original. Swim Plugs are in [place] office. Left pt VM for roll picker. $100 due at roll picker Patient called and reported that he lost a swimplug. Patient would like to order a duplicate set. I called Craig Garcia and ordered duplicate swimplugs using impressions on file. Patient is aware of the $100 cost due at pickup. He is to be notified when the swimplugs are available. documented in this encounter [facility] 08-26-2024 Telephone encount er Note Patient called and reported that he lost a swimplug. Patient would like to order a duplicate set. I called Craig Garcia and ordered duplicate swimplugs using impressions on file. Patient is aware of the $100 cost due at pickup. He is to be notified when the swimplugs are available. [facility] 12-24-2023 Evaluation note Encounter Date Diagnosis Assessment Notes Dec, Nocturnal headaches (ICD-10 - R51.9) [email or web address] Other 01-30-2024 Evaluation note* Encounter Date Diagnosis [...] to go to ER for suspicious symptoms [employer] Other 10-09-2023 Evaluation note* Encounter Date Diagnosis [...] (ICD-10 - Z12.5) Yearly JAN and PSA [facility] [employer] Other 03-02-2023 NoteCONSULTATION CONSULTATION DATE: 01/22/2023 HISTORY: [...] q.h.s. Patient does agree with this plan.[id number] Note CONSULTATION CONSULTATION DATE: 12/25/2022 HISTORY OF [...] be followed up in the clinic thereafter.[facility] [id number] Evaluation note* Encounter Date Diagnosis Assessment Notes Treatment Notes Treatment Clinical Notes Nov, Acute salpingitis of right eustachian tube (ICD-10 - H68.011) Yawn, chew gum, sudafed as well as prescribed medication Nov, Non-recurrent acute serous otitis media of right ear (ICD-10 - H65.01) Initiate antibiotics [employer] Other 01-06-2023 Evaluation note* Encounter Date Diagnosis [...] (ICD-10 - N52.01) Sildenafil tolerated and beneficial. [employer] Other 09-13-2022 NoteCONSULTATION CONSULTATION DATE: 08/05/2022 CHIEF [...] would like to progress. CC: Sean Garcia D.O.[facility]03-23-2022 Hospital Discharge instructions Patient Education 02/12/2022 15:17:19 [...] 08/05/2005 Document Revised: 02/24/2019 Document Reviewed: 02/24/2019 [employer] Patient Education 2020 [employer] Follow Up Care 01/29/2022 13:30:30 With:Esme Lopez CNP Address: When:1 year only if needed [facility] Evaluation + Plan note No data available for this section [facility] Evaluation noteNo InformationNort [email or web address] Other evalugjcdh noteNo assessment information available [facility] Work Phone: evaluation note* Diagnosis Onset Date Resolution Status Cervical spondylosis acute Hypnic headache acute [facility] Work Phone: evaluation note* Diagnosis Bilateral hearing loss, unspecified hearing loss type- Primary documented in this encounter [facility] HealthcareHistory general Narrative - Reported* Type Description Date [...] right thumb Hospitalization History see surgical history [employer] Other Hislocg general Narrative - Reported* Type Description Date [...] Colonoscopy 04/2021 Hospitalization History see surgical history [employer] Other Hisjliu general Narrative - Reported* Type Description Date [...] years) 01/2022 Hospitalization History see surgical history [employer] Other Reason for referral (narrative)* Reason 03/18/23 Referral for plugged right ear Diagnosis 1 Acute salpingitis of right eustachian tube (H68.011) Referral Organization [facility] Jose [facility] Todd casiano Referring Provider First Name Sean Referring Provider Last Name Jose Referring Provider Specialty Internal Me dicine Referred Organization [facility] Referred Provider MikistevanAmie butterfield Referred Address ,[place], [place],[address] Referred Provider Specialty Ear, Nose an d [...] being referred for further evaluation and treatment. [employer] Other Summary Purpose Family History No Family History Records Found Relationship Condition Age at Onset Recorded Date/T leesa Not Specified Diabetes mellitus Unknown Advance Directives No Advanced Directives Records Found Advance Directive Response Recorded Date/ Time Advance [...] section and content) DATE CREATED AUTHOR 01/28/2019 [facility] DATE CREATED AUTHOR AUTHOR'S ORGANIZ ATION 04/11/2022 [facility] DATE CREATED AUTHOR AUTHOR'S ORGANIZ ATION 04/04/2023 [facility] DATE CREATED AUTHOR AUTHOR'S ORGANIZ ATION 09/18/2024 [facility] EPIC REASON FOR VISIT [...] April 22, 2024 End: April 22, 2024 [employer] Relationship Specialty Start Date End Date Sean Garcia MD [address] [place] [id number] PCP - General Internal Medicine 04/15/23 [employer] Operator Relationship Specialty [place] [address] [place] [id number] PCP - General Internal Medicine 04/15/23 Goals (unrecognized section and content) Goals may [...] BE BASED ON THE PRIMARY CLINICAL RECORDS. [facility] [employer] [facility]. provides no warranty or guarantee of the accuracy or completeness of information in this document.
[2024-10-11 07:14] VITALS: BP 135/87; PULSE 82; TEMP 36.4; O2SAT 97
[2024-10-11 08:12] VITALS: BP 148/88; PULSE 79; O2SAT 98
[2024-10-11 08:14] VITALS: BP 141/87; PULSE 76; O2SAT 98
[2024-10-11] MEDS: DEXAMETHASONE SOD PHOS 4 MG/ML VIAL 10 MG INJ (08:24)
[2024-10-11] MEDS: BUPIVACAINE HCL 0.25% PF 25 MG/10 ML VIAL 4 ML INJ (08:24)
[2024-10-11] MEDS: LIDOCAINE HCL 2% 400 MG/20 ML MDV 10 ML INJ (08:25)
--- NOTE | 2024-10-11 08:42 | W.PM.PROCNOT ---
Date of procedure: 10/11/24 Pre-op diagnosis: Thoracic spondylosis Post-op diagnosis: same as pre-op Procedure: Right Thoracic 09/02, 10/04 Radiofrequency ablation Under fluoroscopic guidance Rhizotomy was created using radio frequency ablation at 80?C for 90 seconds 1 to 2 lesions created at each site. Post lesioning injection of 2 mL each of 0.25% Marcaine and 2% lidocaine with Dexamethasone 4mg. 0.5 to 1 mL injected at each site IV in place no If Intravenous fluids: NS at KVO Anesthesia local 2% lidocaine for Anesthesia Other: local Timeout process compliant After informed consent obtained.Patient brought to the procedure room placed in the prone position skin overlying the area was prepped and draped in a sterile fashion using betadine. 25 gauge needle was used to create a skin wheal over each of the targeted areas utilizing 2% lidocaine. A rhizotomy needle with a 10 mm active tip was inserted over each of the anesthetized areas and directed towards each of the medial branches accomplished under fluoroscopic guidance. after encountering the same we had positive sensory stimulation, negative motor stimulation was noted. lesions were then created. Post lesioning, steroid solution was injected needles removed. Patient was transferred to recovery room in stable condition to be discharged home after meeting criteria. Anesthesia: Local Surgeon: Fransico Salvador Condition: stable
== END 2024-10-11 08:28 | disposition home or self-care (01) ==
LOC: SURGOUT 06:57
PROVIDERS: PCP Internal Medicine; Visit Provider Anesthesiology Pain Medicine
DX: M47.814 Spondylosis without myelopathy or radiculopathy, thoracic region (principal)
CPT/HCPCS: 64633; 64634; J0665; J1100

== ENCOUNTER 2024-11-29 09:32 | Outpatient (OUT) | payer BC, SELFPAY ==
--- NOTE | 2024-11-29 | CONS_ITS ---
CONSULTATION DATE: 11/29/2024 TO: Dr. Garcia HISTORY: Patient returns today complaining of pain in his mid thoracic area. He reports the pain as being 2/10, deep aching in character with increased activities such as standing, walking and performing transitioning maneuvers, as well as lifting and pushing/pulling maneuvers. He feels most comfortable in the semi-recumbent position. Denies any change in bowel and bladder habits or new sensorimotor changes in his lower extremities. CURRENT MEDICATION: Includes ibuprofen 400-800 mg p.r.n., does not use this daily. Baclofen 10 mg one at h.s., which he uses regularly without any side effects, and reports it does improve his pain symptoms. EXAMINATION: Notable for patient having no clinical radiculopathy or myelopathy involving the lower extremities. Patient did not have any pain with thoracic or lumbar facet joint loading maneuvers. Patient is noted to have some myofascial spasm and myalgia of the thoracic iliocostalis muscle, reported to be most significant at approximately T7 level. He has undergone, most recently, a rhizotomy using radiofrequency ablation of the T10-11, T11-12 facet joint levels. He reports pain in this area is dramatically improved with 90% improvement in his pain symptoms post procedurally. IMPRESSION: Currently, patient appears to have residual myalgia and spasm over the thoracic iliocostalis muscle at approximately T7 levels. RECOMMENDATIONS: I have recommended no further interventions of his current pain symptoms and to continue with baclofen on an as needed basis. Will see him back in the office on an as needed basis as well. As part of providing excellent, safe, comprehensive care, the following was completed at our patient's visit: 1. A medication reconciliation and review to ensure accurate knowledge of current/active medications, including asking our patients to inform us about any [id number] medications or herbal remedies/nutritional supplements/alternative remedies. 2. A review to specifically ensure our patients have had annual screening for: elevated body mass index (BMI, see intake chart for exact total), tobacco use, screening for depression, and screening for unhealthy alcohol use. When screening is concerning, patients are provided with education and the specific recommendation to discuss the concerning health issue and treatment options with their primary care provider. [facility]
== END 2024-11-29 09:33 | disposition home or self-care (01) ==
LOC: PM 09:33
PROVIDERS: PCP Internal Medicine; Visit Provider Anesthesiology Pain Medicine
DX: M79.18 Myalgia, other site (principal)
CPT/HCPCS: G0463